=== PATIENT | female | born 1940 | race Caucasian/White ===

== ENCOUNTER 2018-05-07 14:47 | Observation (INO) | payer MEDICARE, OTHER ==
[2018-05-07] MEDS ORDERED: Zofran 4 MG/2 ML VIAL IV ONE (15:19)
[2018-05-07] MEDS ORDERED: Zofran 4 MG/2 ML VIAL ONE (15:25)
[2018-05-07] MEDS ORDERED: Sodium Chloride 0.9% 1000 ML 1,000 ML ONE ×2 (15:25→18:45)
[2018-05-07] MEDS ORDERED: Sodium Chloride 0.9% 1000 ML 1,000 ML IV SCH ×2 (15:30→19:00)
--- NOTE | 2018-05-07 15:39 | ERPHSYRPT ---
- History of Present Illness Time Seen by Provider: 05/07/18 15:10 Historian: patient Exam Limitations: clinical condition Patient Subjective Stated Complaint: states she is having dry heaves and she hasnt hada BM for two weeks. Triage Nursing Assessment: pt alert and orientedx3, patient able to ambulate , weak but gait is steady, no edema notes, pupils perrla3, lung sounds clear, abdomen soft but tender to palpation, bowel sounds present x4, skin WNL. Physician History: PATIENT COMPLAINS OF GENERALIZED ABDOMINAL PAIN FOR 2 WEEKS, CONSTIPATION. EMESIS X 1 WITH DRY HEAVES. DENIES FLANK PAIN, URINARY SYMPTOMS, FEVER, CHILLS Timing/Duration: week(s) Activities at Onset: none Abdominal Pain Onset Location: generalized abdomen Pain Radiation: no radiation Severity of Pain-Max: moderate Severity of Pain-Current: moderate Modifying Factors: Improves With: vomiting Associated Symptoms: nausea, vomiting Previous symptoms: same symptoms as today Allergies/Adverse Reactions: penicillin G Allergy (Mild, Verified 06/01/16 18:50) Swelling Sulfa (Sulfonamide Antibiotics) [Sulfa(Sulfonamide Antibiotics)] Allergy (Mild, Verified 06/01/16 18:50) Hives Iodinated Contrast- Oral and IV Dye [Iodinated Contrast Media - IV Dye] Allergy (Verified 06/01/16 18:50) Home Medications: Carvedilol 3.125 mg [Coreg 3.125 MG] 3.125 mg PO QHS 09/13/14 [History] Hydrochlorothiazide 12.5 mg PO DAILY 09/13/14 [History] Lisinopril 10 mg [Zestril 10 MG] 10 mg PO DAILY 09/13/14 [History] Amlodipine Besylate 10 mg [Norvasc 10 MG] 10 mg PO QHS 09/16/14 [History] Albuterol Sulfate [Proair Hfa] 8.5 gm DAILY 05/07/18 [History] Ezetimibe 10 mg DAILY 05/07/18 [History] Polyethylene Glycol 3350 [Miralax] 17 gm DAILY 05/07/18 [History] Potassium Chloride [Klor-Con 10] 10 meq DAILY 05/07/18 [History] Psyllium Husk [Daily Fiber] 0.52 gm DAILY 05/07/18 [History] Rosuvastatin Calcium 10 mg DAILY 05/07/18 [History] Hx Tetanus, Diphtheria Vaccination/Date Given: Yes Hx Influenza Vaccination/Date Given: Yes Hx Pneumococcal Vaccination/Date Given: Yes Immunizations Up to Date: Yes - Review of Systems Constitutional: No Fever, No Chills Eyes: No Symptoms Ears, Nose, & Throat: No Symptoms Respiratory: No Cough, No Dyspnea Cardiac: No Chest Pain, No Edema, No Syncope Abdominal/Gastrointestinal: Abdominal Pain, Nausea, Vomiting, No Diarrhea Genitourinary Symptoms: No Symptoms, No Dysuria Musculoskeletal: No Symptoms, No Back Pain, No Neck Pain Skin: No Rash Neurological: No Dizziness, No Focal Weakness, No Sensory Changes Psychological: No Symptoms Endocrine: No Symptoms All Other Systems: Reviewed and Negative - Past Medical History Pertinent Past Medical History: Yes Neurological History: No Pertinent History ENT History: No Pertinent History Cardiac History: High Cholesterol, Hypertension Respiratory History: COPD, Lung Cancer, Pneumonia Endocrine Medical History: No Pertinent History Musculoskeletal History: Arthritis GI Medical History: No Pertinent History History: Renal Disease, Other Psycho-Social History: No Pertinent History Female Reproductive Disorders: No Pertinent History Other Medical History: MULTIPLE SKIN CANCERS - Past Surgical History Past Surgical History: Yes Neuro Surgical History: No Pertinent History Cardiac: Cardiac Catheterization Respiratory: No Pertinent History Gastrointestinal: Other Genitourinary: No Pertinent History Musculoskeletal: No Pertinent History Female Surgical History: Lumpectomy Other Surgical History: TRIPLE A. BRUSH BIOPSY. COLONOSCOPY - Social History Smoking Status: Former smoker Exposure to second hand smoke: No Alcohol Use: None Drug Use: none Patient Lives Alone: Yes Significant Family History: cancer - Female History Hx Now: No - Nursing Vital Signs Nursing Vital Signs: Initial Vital Signs Temperature 97.4 F 05/07/18 14:48 Pulse Rate 100 H 05/07/18 14:48 Respiratory Rate 16 05/07/18 14:48 Blood Pressure 134/46 05/07/18 14:48 O2 Sat by Pulse Oximetry 97 05/07/18 14:48 Pain Scale Pain Intensity 6 - Physical Exam General Appearance: no apparent distress, alert Eye Exam: PERRL/EOMI, eyes nml inspection Ears, Nose, Throat Exam: normal ENT inspection, pharynx normal, moist mucous membranes Neck Exam: normal inspection, non-tender, supple, full range of motion Respiratory Exam: normal breath sounds, lungs clear, No respiratory distress Cardiovascular Exam: regular rate/rhythm, normal heart sounds Gastrointestinal/Abdomen Exam: soft, normal bowel sounds, tenderness, distention , other (PERIUMBILICAL AND LLQ TENDERNESS), No mass Back Exam: normal inspection, normal range of motion, No CVA tenderness, No vertebral tenderness Extremity Exam: normal inspection, normal range of motion, pelvis stable Neurologic Exam: alert, oriented x 3, cooperative, normal mood/affect, nml cerebellar function, sensation nml, No motor deficits Skin Exam: normal color, warm, dry SpO2 Interpretation: normal SpO2: 97 Oxygen Delivery: Room Air - Course EKG Interpreted by Me: RATE (RATE OF 72, PEAKED T-WAVES), Sinus Rhythm - Radiology Exams Chest X-ray Interpretation: Interpreted by me (NO EVIDENCE OF INFILTRATES) - CT Exams Abdomen/Pelvis CT Interpretation: Tele-radiologist Report (MILD STRANDING ADJACENT TO THE SIGMOID COLON WHICH COULD BE DUR TO MILD COLITIS OR DIVERTICULITIS, A SMALL AMOUNT OF FREE FLUID, NO FREE AIR. THERE IS DISTENTION OF THE GALLBLADDER BUT NO GALLBLADDER WALL THICKENING, NO BILIARY DILATATION.) Ordered Tests: Active Orders 24 hr Category Date Time Status Clean Catch Urine Specimen STAT Care 05/07/18 15:19 Active EKG-ER Only STAT Care 05/07/18 15:19 Active IV Insertion STAT Care 05/07/18 15:19 Active ABDOMEN AND PELVIS W/0 CONTRAS [CT] Stat Exams 05/07/18 15:19 Taken CHEST 1 VIEW (PORTABLE) Stat Exams 05/07/18 16:18 Taken AMYLASE Stat Lab 05/07/18 15:20 Completed BLOOD CULTURE Stat Lab 05/07/18 15:20 Received BMP Stat Lab 05/07/18 17:50 Completed CBC W DIFF Stat Lab 05/07/18 15:20 Completed CMP Stat Lab 05/07/18 15:20 Completed LIPASE Stat Lab 05/07/18 15:20 Completed Lactic Acid Stat Lab 05/07/18 15:28 Completed UA W/RFX UR CULTURE Stat Lab 05/07/18 19:56 Ordered Medication Summary Generic Name Dose Route Start Last Admin Trade Name Freq PRN Reason Stop Dose Admin Sodium Chloride 1,000 mls @ 250 mls/hr 05/07/18 15:30 05/07/18 18:52 Sodium Chloride 0.9% 1000 Ml IV 06/06/18 15:29 Infused .Q4H WES Infusion Sodium Chloride 1,000 mls @ 50 mls/hr 05/07/18 19:00 05/07/18 18:55 Sodium Chloride 0.9% 1000 Ml IV 06/06/18 18:59 50 mls/hr .Q20H WES Administration Discontinued Medications Generic Name Dose Route Start Last Admin Trade Name Freq PRN Reason Stop Dose Admin Calcium Chloride 1,000 mg 05/07/18 18:38 05/07/18 19:48 Calcium Chloride 10% 1000 Mg IV 05/07/18 18:39 1,000 mg STAT ONE Administration Levofloxacin/Dextrose 250 mg in 50 mls @ 50 mls/hr 05/07/18 17:28 05/07/18 17 :35 Levaquin 250mg/50ml D5w IV 05/07/18 18:27 100 mls/hr STAT STA 100 mls/hr Administration Levofloxacin/Dextrose Confirm 05/07/18 17:34 Levaquin 250mg/50ml D5w Administered 05/07/18 17:35 Dose 250 mg in 50 mls @ ud IV .STK-MED ONE Ondansetron HCl 4 mg 05/07/18 15:19 05/07/18 15:30 Zofran 4 Mg/2 Ml Vial IV 05/07/18 15:20 4 mg STAT ONE Administration Ondansetron HCl Confirm 05/07/18 15:25 Zofran 4 Mg/2 Ml Vial Administered 05/07/18 15:26 Dose 4 mg .ROUTE .STK-MED ONE Sodium Polystyrene Sulfonate 30 g 05/07/18 18:38 05/07/18 19:05 Kayexylate 15 Gm/60 Ml PO 05/07/18 18:39 30 g STAT ONE Administration Lab/Rad Data: Laboratory Result Diagrams 05/07/18 15:20 05/07/18 17:50 Laboratory Results 05/07/18 05/07/18 05/07/18 Range/Units 17:50 15:28 15:20 WBC (4.0-10.5) K/mm3 RBC (4.1-5.4) M/mm3 Hgb (12.0-16.0) gm/dl Hct (35-47) % MCV (78-100) fl MCH (26-32) pg MCHC (32-36) g/dl RDW (11.5-14.0) % Plt Count (150-450) K/mm3 MPV (6-9.5) fl Gran % (36.0-66.0) % Eos # (Auto) (0-0.5) Absolute Lymphs (auto) (1.0-4.6) Absolute Monos (auto) (0.0-1.3) Lymphocytes % (24.0-44.0) % Monocytes % (0.0-12.0) % Eosinophils % (0.00-5.0) % Basophils % (0.0-0.4) % Absolute Granulocytes (1.4-6.9) Basophils # (0-0.4) Sodium 137 138 (137-145) mmol/L Potassium 6.4 H* 6.2 H* (3.5-5.1) mmol/L Chloride 104 100 (98-107) mmol/L Carbon Dioxide 22 21 L (22-30) mmol/L Anion Gap 16.8 H 22.9 H (5-15) MEQ/L BUN 36 H 36 H (7-17) mg/dL Creatinine 1.60 H 1.73 H (0.52-1.04) mg/dL Estimated GFR 33.4 30.5 ML/MIN Glucose 91 112 H (74-106) mg/dL Lactic Acid 1.7 (0.4-2.0) Calcium 9.0 10.6 H (8.4-10.2) mg/dL Total Bilirubin 0.60 (0.2-1.3) mg/dL AST 24 (14-36) U/L ALT 13 (0-35) U/L Alkaline Phosphatase 157 H (38-126) U/L Serum Total Protein 8.5 H (6.3-8.2) g/dL Albumin 4.8 (3.5-5.0) g/dL Amylase 92 (30-110) U/L Lipase 201 (23-300) U/L 05/07/18 Range/Units 15:20 WBC 13.2 H (4.0-10.5) K/mm3 RBC 4.79 (4.1-5.4) M/mm3 Hgb 14.5 (12.0-16.0) gm/dl Hct 42.3 (35-47) % MCV 88.3 (78-100) fl MCH 30.3 (26-32) pg MCHC 34.3 (32-36) g/dl RDW 14.7 H (11.5-14.0) % Plt Count 284 (150-450) K/mm3 MPV 11.8 H (6-9.5) fl Gran % 79.9 H (36.0-66.0) % Eos # (Auto) 0.03 (0-0.5) Absolute Lymphs (auto) 1.58 (1.0-4.6) Absolute Monos (auto) 1.05 (0.0-1.3) Lymphocytes % 11.9 L (24.0-44.0) % Monocytes % 7.9 (0.0-12.0) % Eosinophils % 0.2 (0.00-5.0) % Basophils % 0.1 (0.0-0.4) % Absolute Granulocytes 10.57 H (1.4-6.9) Basophils # 0.01 (0-0.4) Sodium (137-145) mmol/L Potassium (3.5-5.1) mmol/L Chloride (98-107) mmol/L Carbon Dioxide (22-30) mmol/L Anion Gap (5-15) MEQ/L BUN (7-17) mg/dL Creatinine (0.52-1.04) mg/dL Estimated GFR ML/MIN Glucose (74-106) mg/dL Lactic Acid (0.4-2.0) Calcium (8.4-10.2) mg/dL Total Bilirubin (0.2-1.3) mg/dL AST (14-36) U/L ALT (0-35) U/L Alkaline Phosphatase (38-126) U/L Serum Total Protein (6.3-8.2) g/dL Albumin (3.5-5.0) g/dL Amylase (30-110) U/L Lipase (23-300) U/L - Progress Progress Note: 05/07/18 15:42 IV NORMAL SALINE 250ML/HR ZOFRAN 4MG IV, SERUM K-6.2, GIVEN BOLUS NORMAL SALINE1 LITER OVER 1 HOUR, 2 SETS OF BLOOD CULTURES, LEVAQUIN 250MG IVPB, SODIUM POLYSTYRENE 30GM ORALLY, CALCIUM CHLORIDE 1000MG IVPB OVER 1 HOUR 05/07/18 17:48 05/07/18 17:49 05/07/18 20:04 - Departure Time of Disposition: 20:06 Departure Disposition: Observation Clinical Impression: ACUTE SIGMOID COLITIS, HYPERKALEMIA, INTRACTABLE EMESIS Condition: Stable Critical Care Time: No Referrals: ALAINA RODRIGUEZ [Primary Care Provider] -
[2018-05-07 15:47] LABS: BASOPHIL % 0.1 % (0.0-0.4); Basophil (Absolute #) 0.01 (0-0.4); Eosinophil % 0.2 % (0.00-5.0); Eosinophil (Absolute #) 0.03 (0-0.5); Granulocyte Absolute (ANC) 10.57 (1.4-6.9); Granulocytes % 79.9 % (36.0-66.0); Hematocrit 42.3 % (35-47); Hemoglobin 14.5 gm/dl (12.0-16.0); Lymphocyte (Absolute #) 1.58 (1.0-4.6); Lymphocytes % 11.9 % (24.0-44.0); Mean Cell Volume 88.3 fl (78-100); Mean Corpuscular Hemoglobin 30.3 pg (26-32); Mean Corpuscular Hgb Concent. 34.3 g/dl (32-36); Mean Platelet Volume 11.8 fl (6-9.5); Monocyte (Absolute #) 1.05 (0.0-1.3); Monocytes % 7.9 % (0.0-12.0); Platelet Count 284 K/mm3 (150-450); Red Blood Count 4.79 M/mm3 (4.1-5.4); Red Cell Distribution Width 14.7 % (11.5-14.0); White Blood Count 13.2 K/mm3 (4.0-10.5)
[2018-05-07 15:52] LABS: ALBUMIN 4.8 g/dL (3.5-5.0); ANION GAP 22.9 MEQ/L (5-15); BILIRUBIN,TOTAL 0.6 mg/dL (0.2-1.3); Calcium 10.6 mg/dL (8.4-10.2); Creatinine 1 1.73 mg/dL (0.52-1.04); Total Protein 8.5 g/dL (6.3-8.2)
[2018-05-07 15:56] LABS: Potassium 6.2 mmol/L (3.5-5.1)
[2018-05-07] MEDS ORDERED: Levaquin 250MG/50ML D5W 250 MG/50 ML BAG IV STA (17:28)
[2018-05-07] MEDS ORDERED: Levaquin 250MG/50ML D5W 250 MG/50 ML BAG IV ONE (17:34)
[2018-05-07 18:18] LABS: ANION GAP 16.8 MEQ/L (5-15); Creatinine 1 1.6 mg/dL (0.52-1.04)
[2018-05-07 18:27] LABS: Potassium 6.4 mmol/L (3.5-5.1)
[2018-05-07] MEDS ORDERED: CALCIUM CHLORIDE 10% 1000 MG IV ONE ×2 (18:38→20:38)
[2018-05-07] MEDS ORDERED: Kayexylate 15 GM/60 ML PO ONE (18:38)
[2018-05-07] MEDS ORDERED: Sodium Chloride 0.9% 100 ML IVPB 100 ML IV ONE (20:38)
[2018-05-07 20:49] LABS: Appearance SLIGHTLY CLOUDY (CLEAR)
[2018-05-07 20:50] LABS: Leukocyte Esterase 2+ (NEGATIVE); Nitrite NEGATIVE (NEGATIVE); Protein,Urine Dip TRACE (Negative)
[2018-05-07 20:51] LABS: Bilirubin NEGATIVE (NEGATIVE); Blood NEGATIVE Ery/ul (0-5); Glucose NEGATIVE (NEGATIVE); Ketones MODERATE (NEGATIVE); Urobilinogen 1 mg/dL (0-1)
[2018-05-07 21:01] LABS: Bacteria FEW /HPF (NEGATIVE); Epithelial Cells FEW /HPF (FEW)
[2018-05-07] MEDS ORDERED: Kayexylate 15 GM/60 ML PO SCH (21:05)
[2018-05-07] MEDS ORDERED: Sodium Chloride 0.9% 500 ML 500 ML IV SCH (21:05)
[2018-05-07] MEDS ORDERED: Zofran 4 MG/2 ML VIAL IV PRN (21:05)
--- NOTE | 2018-05-07 21:44 | XRAY ---
Indication: Abdominal pain. Constipation 2 weeks. Multiple contiguous axial images obtained through the abdomen and pelvis without contrast as ordered. Comparison: April 22, 2016. Lung bases demonstrate stable lingular calcified granuloma. No infiltrate or effusion. Heart is not enlarged. Noncontrasted stomach and bowel loops appear nonobstructed. Normal appendix. Colon demonstrates diffuse moderate fluid distention. Again mild scattered colonic diverticulosis with now sigmoid stranding and free fluid favoring diverticulitis. No walled off fluid collection or free air. Gallbladder is abnormally distended without gallstones or biliary distention. Right kidney remains small compared to contralateral kidney with stable nonobstructing punctate calculus. Stable scattered calcified splenic granulomas. Remaining liver, pancreas, spleen, adrenal glands, kidneys, ureters, and bladder appear unremarkable for noncontrast exam. 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 Lack of contrast precludes intraluminal evaluation. Osseous structures intact again with mild degenerative changes throughout the spine and L1 Schmorl node. Impression: 1. Again colonic diverticulosis with now sigmoid diverticulitis. Small free fluid presumed reactive. 2. Diffuse fluid distended colon possible colitis. 3. Distended gallbladder without gallstones. Gallbladder sonogram may yield further information if clinically warranted. 4. Stable small right kidney with nonobstructing microcalculus, arteriosclerotic disease, and evidence for granulomatous disease. Comment: Preliminary interpretation was made by [facility]. No discrepancy. CTDI 11.39
--- NOTE | 2018-05-07 21:46 | XRAY ---
Indication: Cough. History right lung cancer. Comparison: June 01, 2016. Portable chest unchanged again with right suprahilar post-therapeutic changes and lingular calcified granuloma. Remaining heart and lungs unremarkable. Bony thorax intact again with minimal degenerative changes. Impression: Stable nonacute chest with chronic features.
[2018-05-07] MEDS: Calcium Gluconate 10% 1000 MG IV ONE ×2 (23:01→23:04)
[2018-05-07 23:53] LABS: ANION GAP 19.9 MEQ/L (5-15); Calcium 10.9 mg/dL (8.4-10.2); Creatinine 1 1.63 mg/dL (0.52-1.04); Potassium 5.7 mmol/L (3.5-5.1)
[2018-05-08] MEDS: FLAGYL 500 MG IVPB 500 MG/100 ML BAG IV SCH ×5 (00:34→23:49)
[2018-05-08 06:03] LABS: ANION GAP 14.9 MEQ/L (5-15); Calcium 9.5 mg/dL (8.4-10.2); Creatinine 1 1.56 mg/dL (0.52-1.04); Potassium 4.7 mmol/L (3.5-5.1)
--- NOTE | 2018-05-08 08:03 | PCM.HP ---
History of Present Illness - Chief Complaint Chief Complaint: ACUTE SIGMOID COLITIS Date: 05/08/18 History of Present Illness: is a 77 year old female. who presented with 2 weeks of abdominal pain and constipation which began worsening. She tried miralax but only 1 dose and her neprhologist recommended fiber cap but she didn't get a chance to take it. She became weak and with severe pain nausea and developed vomiting and presented to ED. - Review of Systems Constitutional: Chills, Fatigue, No Fever Eyes: No Symptoms Ears, Nose, & Throat: No Symptoms Respiratory: No Cough, No Short Of Breath Cardiac: No Chest Pain, No Edema, No Syncope Abdominal/Gastrointestinal: Abdominal Pain, Nausea, Vomiting, Constipation, No Diarrhea Genitourinary Symptoms: No Dysuria Musculoskeletal: No Back Pain, No Neck Pain Skin: No Rash Neurological: No Dizziness, No Focal Weakness, No Sensory Changes Psychological: No Symptoms Endocrine: No Symptoms Hematologic/Lymphatic: No Symptoms Immunological/Allergic: No Symptoms Medications & Allergies Home Medications: Home Medication List Carvedilol 3.125 mg [Coreg 3.125 MG] 3.125 mg PO BID 09/13/14 [History Confirmed 05/07/18] Hydrochlorothiazide 12.5 mg PO DAILY 09/13/14 [History Confirmed 05/07/18] Albuterol Sulfate [Proair Hfa] 2 puffs QID PRN 05/07/18 [History Confirmed 05/07] Ezetimibe 10 mg PO DAILY 05/07/18 [History Confirmed 05/07/18] Polyethylene Glycol 3350 [Miralax] 17 gm DAILY 05/07/18 [History Confirmed 05/07] Potassium Chloride [Klor-Con 10] 10 meq DAILY 05/07/18 [History Confirmed ] Psyllium Husk [Daily Fiber] 0.52 gm DAILY 05/07/18 [History Confirmed 05/07/18] Rosuvastatin Calcium 10 mg DAILY 05/07/18 [History Confirmed 05/07/18] Levofloxacin [Levaquin] 500 mg PO DAILY #7 tablet 05/09/18 [Rx] Metronidazole 500 mg [Flagyl 500 MG] 500 mg PO TID #21 tablet 05/09/18 [Rx ] Allergies/Adverse Reactions: Allergies Allergy/AdvReac Type Severity Reaction Status Date / Time Iodinated Contrast- Oral and Allergy Intermediate Verified 05/07/18 21:57 IV Dye [Iodinated Contrast Media - IV Dye] penicillin G Allergy Mild Swelling Verified 06/01/16 18:50 Sulfa (Sulfonamide Allergy Mild Hives Verified 06/01/16 18:50 Antibiotics) [Sulfa(Sulfonamide Antibiotics)] - Past Medical History Past Medical History: Yes Neurological History: No Pertinent History ENT History: No Pertinent History Cardiac History: High Cholesterol, Hypertension Respiratory History: COPD, Lung Cancer, Pneumonia Endocrine Medical History: No Pertinent History Musculoskelatal History: Arthritis GI Medical History: No Pertinent History History: Renal Disease, Other Pyscho-Social History: No Pertinent History Reproductive Disorders: No Pertinent History Comment: MULTIPLE SKIN CANCERS, 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 smaller than the other - Female History Are you now?: No - Past Surgical History Past Surgical History: Yes Neuro Surgical History: No Pertinent History Cardiac History: Cardiac Catheterization Respiratory Surgery: No Pertinent History GI Surgical History: Other Genitourinary Surgical Hx: No Pertinent History Musculskeletal Surgical Hx: No Pertinent History Female Surgical History: Lumpectomy Other Surgical History: TRIPLE A REPAIR. BRUSH BIOPSY. COLONOSCOPY. MULTIPLE SKIN CANCERS REMOVED. STENTS IN BILAT LEGS - Social History Smoking Status: Former smoker Exposure to second hand smoke: No Alcohol: None Drug Use: none Significant Family History: cancer - Physical Exam Vital Signs: Vital Signs - 24 hr Temp Pulse Resp BP Pulse Ox 05/08/18 03:57 98.2 F 93 H 19 128/55 95 05/08/18 03:48 96 H 05/08/18 00:01 85 05/08/18 00:00 97.4 F 95 H 19 127/52 94 L 05/07/18 21:47 98 05/07/18 21:19 97.8 F 97 H 20 123/61 100 05/07/18 21:05 97 H 98 05/07/18 20:06 97 05/07/18 19:50 99 H 18 123/47 95 05/07/18 19:40 95 H 18 122/53 98 05/07/18 18:50 84 16 118/46 98 05/07/18 18:21 88 16 118/46 99 05/07/18 15:50 78 16 123/44 96 05/07/18 15:38 75 18 98/50 97 05/07/18 14:48 97.4 F 100 H 16 134/46 97 General Appearance: no apparent distress, alert Neurologic Exam: alert, oriented x 3, cooperative, normal mood/affect, nml cerebellar function, nml station & gait, sensation nml, No motor deficits Eye Exam: PERRL/EOMI, eyes nml inspection Ears, Nose, Throat Exam: normal ENT inspection, TMs normal, pharynx normal, moist mucous membranes Neck Exam: normal inspection, non-tender, supple, full range of motion Respiratory Exam: normal breath sounds, lungs clear, No respiratory distress Cardiovascular Exam: regular rate/rhythm, normal heart sounds, normal peripheral pulses Gastrointestinal/Abdomen Exam: soft, normal bowel sounds, tenderness (left lower quadrant), No distention, No mass, No guarding, No ecchymosis, No rebound Back Exam: normal inspection, normal range of motion, No CVA tenderness, No vertebral tenderness Extremity Exam: normal inspection, normal range of motion, pelvis stable Skin Exam: normal color, warm, dry, No rash Lymphatic Exam: No adenopathy Results - Labs Lab/Micro Results: Lab Results-Last 24 Hours 05/07/18 05/07/18 05/07/18 Range/Units 15:20 15:20 15:28 WBC 13.2 H (4.0-10.5) K/mm3 RBC 4.79 (4.1-5.4) M/mm3 Hgb 14.5 (12.0-16.0) gm/dl Hct 42.3 (35-47) % MCV 88.3 (78-100) fl MCH 30.3 (26-32) pg MCHC 34.3 (32-36) g/dl RDW 14.7 H (11.5-14.0) % Plt Count 284 (150-450) K/mm3 MPV 11.8 H (6-9.5) fl Gran % 79.9 H (36.0-66.0) % Eos # (Auto) 0.03 (0-0.5) Absolute Lymphs (auto) 1.58 (1.0-4.6) Absolute Monos (auto) 1.05 (0.0-1.3) Lymphocytes % 11.9 L (24.0-44.0) % Monocytes % 7.9 (0.0-12.0) % Eosinophils % 0.2 (0.00-5.0) % Basophils % 0.1 (0.0-0.4) % Absolute Granulocytes 10.57 H (1.4-6.9) Basophils # 0.01 (0-0.4) Sodium 138 (137-145) mmol/L Potassium 6.2 H* (3.5-5.1) mmol/L Chloride 100 (98-107) mmol/L Carbon Dioxide 21 L (22-30) mmol/L Anion Gap 22.9 H (5-15) MEQ/L BUN 36 H (7-17) mg/dL Creatinine 1.73 H (0.52-1.04) mg/dL Estimated GFR 30.5 ML/MIN Glucose 112 H (74-106) mg/dL Lactic Acid 1.7 (0.4-2.0) Calcium 10.6 H (8.4-10.2) mg/dL Total Bilirubin 0.60 (0.2-1.3) mg/dL AST 24 (14-36) U/L ALT 13 (0-35) U/L Alkaline Phosphatase 157 H (38-126) U/L Troponin I (0.000-0.034) ng/mL Serum Total Protein 8.5 H (6.3-8.2) g/dL Albumin 4.8 (3.5-5.0) g/dL Amylase 92 (30-110) U/L Lipase 201 (23-300) U/L Ur Collection Type Urine Color (YELLOW) Urine Appearance (CLEAR) Urine pH (5-6) Ur Specific [place] (1.005-1.025) Urine Protein (Negative) Urine Ketones (NEGATIVE) Urine Blood (0-5) Yahir/ul Urine Nitrite (NEGATIVE) Urine Bilirubin (NEGATIVE) Urine Urobilinogen (0-1) mg/dL Ur Leukocyte Esterase (NEGATIVE) Urine Microscopic WBC (0-5) /HPF Ur Epithelial Cells (FEW) /HPF Urine Bacteria (NEGATIVE) /HPF Hyaline Casts (0-2) /LPF Urine Culture Reflexed (NO) Urine Glucose (NEGATIVE) mg/dL Specimen Received 05/07/18 05/07/18 05/07/18 Range/Units 17:50 20:30 23:30 WBC (4.0-10.5) K/mm3 RBC (4.1-5.4) M/mm3 Hgb (12.0-16.0) gm/dl Hct (35-47) % MCV (78-100) fl MCH (26-32) pg MCHC (32-36) g/dl RDW (11.5-14.0) % Plt Count (150-450) K/mm3 MPV (6-9.5) fl Gran % (36.0-66.0) % Eos # (Auto) (0-0.5) Absolute Lymphs (auto) (1.0-4.6) Absolute Monos (auto) (0.0-1.3) Lymphocytes % (24.0-44.0) % Monocytes % (0.0-12.0) % Eosinophils % (0.00-5.0) % Basophils % (0.0-0.4) % Absolute Granulocytes (1.4-6.9) Basophils # (0-0.4) Sodium 137 (137-145) mmol/L Potassium 6.4 H* (3.5-5.1) mmol/L Chloride 104 (98-107) mmol/L Carbon Dioxide 22 (22-30) mmol/L Anion Gap 16.8 H (5-15) MEQ/L BUN 36 H (7-17) mg/dL Creatinine 1.60 H (0.52-1.04) mg/dL Estimated GFR 33.4 ML/MIN Glucose 91 (74-106) mg/dL Lactic Acid (0.4-2.0) Calcium 9.0 (8.4-10.2) mg/dL Total Bilirubin (0.2-1.3) mg/dL AST (14-36) U/L ALT (0-35) U/L Alkaline Phosphatase (38-126) U/L Troponin I < 0.012 (0.000-0.034) ng/mL Serum Total Protein (6.3-8.2) g/dL Albumin (3.5-5.0) g/dL Amylase (30-110) U/L Lipase (23-300) U/L Ur Collection Type CLEAN CATCH Urine Color DARK YELLOW (YELLOW) Urine Appearance SLIGHTLY CLOUDY (CLEAR) Urine pH 5.0 (5-6) Ur Specific [place] 1.020 (1.005-1.025) Urine Protein TRACE (Negative) Urine Ketones MODERATE (NEGATIVE) Urine Blood NEGATIVE (0-5) Yahir/ul Urine Nitrite NEGATIVE (NEGATIVE) Urine Bilirubin NEGATIVE (NEGATIVE) Urine Urobilinogen 1 (0-1) mg/dL Ur Leukocyte Esterase 2+ (NEGATIVE) Urine Microscopic WBC 10-15 (0-5) /HPF Ur Epithelial Cells FEW (FEW) /HPF Urine Bacteria FEW (NEGATIVE) /HPF Hyaline Casts 5-10 (0-2) /LPF Urine Culture Reflexed YES (NO) Urine Glucose NEGATIVE (NEGATIVE) mg/dL Specimen Received 05/07/18 2030 05/07/18 05/08/18 05/08/18 Range/Units 23:30 01:30 03:25 WBC (4.0-10.5) K/mm3 RBC (4.1-5.4) M/mm3 Hgb (12.0-16.0) gm/dl Hct (35-47) % MCV (78-100) fl MCH (26-32) pg MCHC (32-36) g/dl RDW (11.5-14.0) % Plt Count (150-450) K/mm3 MPV (6-9.5) fl Gran % (36.0-66.0) % Eos # (Auto) (0-0.5) Absolute Lymphs (auto) (1.0-4.6) Absolute Monos (auto) (0.0-1.3) Lymphocytes % (24.0-44.0) % Monocytes % (0.0-12.0) % Eosinophils % (0.00-5.0) % Basophils % (0.0-0.4) % Absolute Granulocytes (1.4-6.9) Basophils # (0-0.4) Sodium 140 (137-145) mmol/L Potassium 5.7 H (3.5-5.1) mmol/L Chloride 106 (98-107) mmol/L Carbon Dioxide 21 L (22-30) mmol/L Anion Gap 19.9 H (5-15) MEQ/L BUN 38 H (7-17) mg/dL Creatinine 1.63 H (0.52-1.04) mg/dL Estimated GFR 32.7 ML/MIN Glucose 95 (74-106) mg/dL Lactic Acid (0.4-2.0) Calcium 10.9 H (8.4-10.2) mg/dL Total Bilirubin (0.2-1.3) mg/dL AST (14-36) U/L ALT (0-35) U/L Alkaline Phosphatase (38-126) U/L Troponin I < 0.012 < 0.012 (0.000-0.034) ng/mL Serum Total Protein (6.3-8.2) g/dL Albumin (3.5-5.0) g/dL Amylase (30-110) U/L Lipase (23-300) U/L Ur Collection Type Urine Color (YELLOW) Urine Appearance (CLEAR) Urine pH (5-6) Ur Specific [place] (1.005-1.025) Urine Protein (Negative) Urine Ketones (NEGATIVE) Urine Blood (0-5) Yahir/ul Urine Nitrite (NEGATIVE) Urine Bilirubin (NEGATIVE) Urine Urobilinogen (0-1) mg/dL Ur Leukocyte Esterase (NEGATIVE) Urine Microscopic WBC (0-5) /HPF Ur Epithelial Cells (FEW) /HPF Urine Bacteria (NEGATIVE) /HPF Hyaline Casts (0-2) /LPF Urine Culture Reflexed (NO) Urine Glucose (NEGATIVE) mg/dL Specimen Received 05/08/18 05/08/18 Range/Units 05:30 05:30 WBC (4.0-10.5) K/mm3 RBC (4.1-5.4) M/mm3 Hgb (12.0-16.0) gm/dl Hct (35-47) % MCV (78-100) fl MCH (26-32) pg MCHC (32-36) g/dl RDW (11.5-14.0) % Plt Count (150-450) K/mm3 MPV (6-9.5) fl Gran % (36.0-66.0) % Eos # (Auto) (0-0.5) Absolute Lymphs (auto) (1.0-4.6) Absolute Monos (auto) (0.0-1.3) Lymphocytes % (24.0-44.0) % Monocytes % (0.0-12.0) % Eosinophils % (0.00-5.0) % Basophils % (0.0-0.4) % Absolute Granulocytes (1.4-6.9) Basophils # (0-0.4) Sodium 139 (137-145) mmol/L Potassium 4.7 (3.5-5.1) mmol/L Chloride 108 H (98-107) mmol/L Carbon Dioxide 21 L (22-30) mmol/L Anion Gap 14.9 (5-15) MEQ/L BUN 37 H (7-17) mg/dL Creatinine 1.56 H (0.52-1.04) mg/dL Estimated GFR 34.4 ML/MIN Glucose 80 (74-106) mg/dL Lactic Acid (0.4-2.0) Calcium 9.5 (8.4-10.2) mg/dL Total Bilirubin (0.2-1.3) mg/dL AST (14-36) U/L ALT (0-35) U/L Alkaline Phosphatase (38-126) U/L Troponin I < 0.012 (0.000-0.034) ng/mL Serum Total Protein (6.3-8.2) g/dL Albumin (3.5-5.0) g/dL Amylase (30-110) U/L Lipase (23-300) U/L Ur Collection Type Urine Color (YELLOW) Urine Appearance (CLEAR) Urine pH (5-6) Ur Specific [place] (1.005-1.025) Urine Protein (Negative) Urine Ketones (NEGATIVE) Urine Blood (0-5) Yahir/ul Urine Nitrite (NEGATIVE) Urine Bilirubin (NEGATIVE) Urine Urobilinogen (0-1) mg/dL Ur Leukocyte Esterase (NEGATIVE) Urine Microscopic WBC (0-5) /HPF Ur Epithelial Cells (FEW) /HPF Urine Bacteria (NEGATIVE) /HPF Hyaline Casts (0-2) /LPF Urine Culture Reflexed (NO) Urine Glucose (NEGATIVE) mg/dL Specimen Received Microbiology 05/07/18 20:30 Urine Culture - Preliminary Clean Catch Midstream NO GROWTH TO DATE - Radiology Impressions Radiology Exams & Impressions: Radiology Procedures Category Date Time Status ABDOMEN AND PELVIS W/0 CONTRAS [CT] Stat Exams 05/07/18 15:19 Completed CHEST 1 VIEW (PORTABLE) Stat Exams 05/07/18 16:18 Completed - Other Procedures and Tests Respiratory Therapy 05/07/18 21:05 Oxygen NASAL CANNULA 2 lpm Assessment/Plan (1) Diverticulitis large intestine Status: Acute Qualifiers: Diverticulitis complication: without perforation or abscess Assessment & Plan: pain improving and bm had 5 overnight with the kayexalate for the hyperkalemia and it is improved this am renal function improving with the hydration bp still low hold her amlodipine with the constipation and florencia inhibitor with the hyperkalemia and renal failure continue levaquin and flagyl transfer to med [facility] tele today she had colonoscopy she states about 4 years ago ordered through Dr. Stacy's office Code(s): K57.32 - DVTRCLI OF LG INT W/O PERFORATION OR ABSCESS W/O BLEEDING (2) Hyperkalemia Status: Acute Onset Date: ~05/08/18 Code(s): E87.5 - HYPERKALEMIA (3) [id number] kidney injury Status: Acute Code(s): N17.9 - ACUTE KIDNEY FAILURE, UNSPECIFIED; N18.9 - CHRONIC KIDNEY DISEASE, UNSPECIFIED (4) Essential hypertension Status: Chronic Code(s): I10 - ESSENTIAL (PRIMARY) HYPERTENSION (5) COPD (chronic obstructive pulmonary disease) Status: Chronic (6) Constipation Status: Acute Code(s): K59.00 - CONSTIPATION, UNSPECIFIED
[2018-05-08] MEDS ORDERED: PROVENTIL COMMON CANISTER IH PRN (08:30)
[2018-05-08] MEDS: hydroDIURIL 25 MG PO SCH (09:08)
[2018-05-08] MEDS: Coreg 3.125 MG PO SCH ×2 (09:09→21:22)
[2018-05-08] MEDS: ENOXAPARIN SODIUM SQ SCH ×2 (09:10→09:25)
[2018-05-08] MEDS: ZOCOR 20MG PO SCH (09:10)
[2018-05-08] MEDS: Miralax Powder 17GM PACKET PO SCH ×2 (09:12→12:03)
[2018-05-08] MEDS: Zetia 10 MG PO SCH (09:14)
[2018-05-08] MEDS: Sodium Chloride 0.9% 1000 ML 1,000 ML IV SCH (09:40)
[2018-05-08] MEDS ORDERED: NORVASC 5 MG PO SCH (10:00)
[2018-05-08] MEDS ORDERED: NON-FORMULARY ITEM (Hydrochlorothiazide [Hydrochlorothiazide] 12.5 MG) PO SCH (10:00)
[2018-05-08] MEDS ORDERED: COREG 12.5 MG PO SCH (10:00)
[2018-05-08] MEDS ORDERED: Levaquin 250MG/50ML D5W 250 MG/50 ML BAG IV SCH (10:00)
[2018-05-08] MEDS ORDERED: PREPARATION H Ointment RC PRN (21:04)
[2018-05-09] MEDS: FLAGYL 500 MG IVPB 500 MG/100 ML BAG IV SCH (05:44)
[2018-05-09] MEDS: Sodium Chloride 0.9% 1000 ML 1,000 ML IV SCH (05:45)
[2018-05-09 06:20] LABS: BASOPHIL % 0.3 % (0.0-0.4); Basophil (Absolute #) 0.02 (0-0.4); Eosinophil (Absolute #) 0.16 (0-0.5); Granulocytes % 60.8 % (36.0-66.0); Hematocrit 30.2 % (35-47); Hemoglobin 9.8 gm/dl (12.0-16.0); Lymphocyte (Absolute #) 1.82 (1.0-4.6); Mean Corpuscular Hemoglobin 29.5 pg (26-32); Mean Corpuscular Hgb Concent. 32.5 g/dl (32-36); Mean Platelet Volume 11.4 fl (6-9.5); Monocytes % 13.9 % (0.0-12.0); Platelet Count 186 K/mm3 (150-450); Red Blood Count 3.32 M/mm3 (4.1-5.4); Red Cell Distribution Width 14.8 % (11.5-14.0); White Blood Count 7.9 K/mm3 (4.0-10.5)
[2018-05-09 06:32] LABS: ANION GAP 11.6 MEQ/L (5-15); Calcium 8.8 mg/dL (8.4-10.2); Creatinine 1 1.18 mg/dL (0.52-1.04); Potassium 4.1 mmol/L (3.5-5.1)
--- NOTE | 2018-05-09 07:04 | PCM.DS ---
Discharge Summary Date of Admission: 05/07/18 20:37 Date of Discharge: 05/09/18 Admitting Physician: JEFERSON VALENTIN Primary Care Provider: PAULA SWARTZ Allergies Allergies Iodinated Contrast- Oral and IV Dye [Iodinated Contrast Media - IV Dye] Allergy (Intermediate, Verified 05/07/18 21:57) penicillin G Allergy (Mild, Verified 06/01/16 18:50) Swelling Sulfa (Sulfonamide Antibiotics) [Sulfa(Sulfonamide Antibiotics)] Allergy (Mild, Verified 06/01/16 18:50) [facility] Summary - Hospital Course Hospital Course: She presented with constipation abdominal pain weakness chills and vomiting. Found to have sigmoid diverticulitis and hyperkalemia with acute on chronic renal injury. Bp was low did not require pressors. She responded well to iv fluid replacement. She had improvement in renal function. She received 1 dose of kayexalate with good bm's after this that were loose and correction of hyperkalemia. She had her lisinopril and amlodipine held since admission and bp remained in the low normal range and she will remain off these at discharge with f/u next week. She has patient reported colonoscopy as normal 4 years ago but we do not have a copy of these results. - Vitals & Intake/Output Vital Signs: Vital Signs Temperature 99.1 F 05/09/18 04:00 Pulse Rate 81 05/09/18 04:00 Respiratory Rate 16 05/09/18 04:00 Blood Pressure 104/51 05/09/18 04:00 O2 Sat by Pulse Oximetry 81 L 05/09/18 04:00 Intake & Output: Intake & Output 05/06/18 05/07/18 05/08/18 05/09/18 11:59 11:59 11:59 11:59 Intake Total 1728 1251 Output Total 400 1200 Balance 1328 51 Weight 60.2 kg 64.1 kg - Lab Result Diagrams: 05/09/18 05:33 05/09/18 05:33 Lab Results-Last 24 Hrs: Lab Results-Last 24 Hours 05/09/18 05/09/18 Range/Units 05:33 05:33 WBC 7.9 (4.0-10.5) K/mm3 RBC 3.32 L (4.1-5.4) M/mm3 Hgb 9.8 L (12.0-16.0) gm/dl Hct 30.2 L (35-47) % MCV 91.0 (78-100) fl MCH 29.5 (26-32) pg MCHC 32.5 (32-36) g/dl RDW 14.8 H (11.5-14.0) % Plt Count 186 (150-450) K/mm3 MPV 11.4 H (6-9.5) fl Gran % 60.8 (36.0-66.0) % Eos # (Auto) 0.16 (0-0.5) Absolute Lymphs (auto) 1.82 (1.0-4.6) Absolute Monos (auto) 1.10 (0.0-1.3) Lymphocytes % 23.0 L (24.0-44.0) % Monocytes % 13.9 H (0.0-12.0) % Eosinophils % 2.0 (0.00-5.0) % Basophils % 0.3 (0.0-0.4) % Absolute Granulocytes 4.80 (1.4-6.9) Basophils # 0.02 (0-0.4) Sodium 140 (137-145) mmol/L Potassium 4.1 (3.5-5.1) mmol/L Chloride 109 H (98-107) mmol/L Carbon Dioxide 23 (22-30) mmol/L Anion Gap 11.6 (5-15) MEQ/L BUN 33 H (7-17) mg/dL Creatinine 1.18 H (0.52-1.04) mg/dL Estimated GFR 47.5 ML/MIN Glucose 92 (74-106) mg/dL Calcium 8.8 (8.4-10.2) mg/dL Micro Results-Entire Visit: Microbiology 05/07/18 20:30 Urine Culture - Final Clean Catch Midstream NO GROWTH 05/07/18 15:33 Blood Culture - Preliminary Blood NO GROWTH TO DATE 05/07/18 15:20 Blood Culture - Preliminary Blood NO GROWTH TO DATE - Radiology Exams Ordered Rad Exams-Entire Visit: Radiology Procedures Category Date Time Status ABDOMEN AND PELVIS W/0 CONTRAS [CT] Stat Exams 05/07/18 15:19 Completed CHEST 1 VIEW (PORTABLE) Stat Exams 05/07/18 16:18 Completed - Procedures and Test Procedures and Tests throughout Hospitalization: Therapy Orders & Screens 05/07/18 21:05 Oxygen NASAL CANNULA 2 lpm Comment: 05/09/18 01:12 Respiratory MDI UD Comment: albuterol prn Diagnosis: ACUTE SIGMOID COLITIS Discharge Exam General Appearance: no apparent distress, alert Neurologic Exam: alert, oriented x 3, cooperative, normal mood/affect, nml cerebellar function, sensation nml, No motor deficits Skin Exam: normal color, warm, dry Eye Exam: PERRL, EOMI, eyes nml inspection Ears, Nose, Throat Exam: normal ENT inspection, pharynx normal, moist mucous membranes Neck Exam: normal inspection, non-tender, supple, full range of motion Respiratory Exam: normal breath sounds, lungs clear, No respiratory distress Cardiovascular Exam: regular rate/rhythm, normal heart sounds Gastrointestinal/Abdomen Exam: soft, No tenderness, No mass Extremity Exam: normal inspection, normal range of motion Back Exam: normal inspection, normal range of motion, No CVA tenderness, No vertebral tenderness Pelvic Exam: deferred Rectal Exam: deferred Final Diagnosis/Problem List - Final Discharge Diagnosis/Problem (1) Diverticulitis large intestine Status: Acute (2) [id number] kidney injury Status: Acute (3) Constipation Status: Resolved (4) Hyperkalemia Status: Resolved Onset Date: ~05/08/18 (5) COPD (chronic obstructive pulmonary disease) Status: Chronic (6) Essential hypertension Status: Chronic - Discharge Disposition: Home, Self-Care Condition: Stable Prescriptions: New Metronidazole 500 mg [Flagyl 500 MG] 500 mg PO TID #21 tablet Levofloxacin [Levaquin] 500 mg PO DAILY #7 tablet Continue Hydrochlorothiazide 12.5 mg PO DAILY Carvedilol 3.125 mg [Coreg 3.125 MG] 3.125 mg PO BID Psyllium Husk [Daily Fiber] 0.52 gm DAILY Rosuvastatin Calcium 10 mg DAILY Albuterol Sulfate [Proair Hfa] 2 puffs QID PRN PRN Reason: Shortness Of Breath Potassium Chloride [Klor-Con 10] 10 meq DAILY Ezetimibe 10 mg PO DAILY Polyethylene Glycol 3350 [Miralax] 17 gm DAILY Discontinued Lisinopril 10 mg [Zestril 10 MG] 10 mg PO DAILY Amlodipine Besylate 10 mg [Norvasc 10 MG] 10 mg PO DAILY Instructions: Hyperkalemia (DC), Inflammatory Bowel Disease (DC) Follow up with: PAULA SWARTZ [Primary Care Provider] - 05/16/18 11:15 am Forms: Discharge Instructions
--- NOTE | 2018-05-09 07:04 | PCM.DCORD ---
- Discharge Discharge Date: 05/09/18 Disposition: Home, Self-Care Condition: Stable Prescriptions: New Metronidazole 500 mg [Flagyl 500 MG] 500 mg PO TID #21 tablet Levofloxacin [Levaquin] 500 mg PO DAILY #7 tablet Continue Lisinopril 10 mg [Zestril 10 MG] 10 mg PO DAILY Hydrochlorothiazide 12.5 mg PO DAILY Carvedilol 3.125 mg [Coreg 3.125 MG] 3.125 mg PO BID Amlodipine Besylate 10 mg [Norvasc 10 MG] 10 mg PO DAILY Psyllium Husk [Daily Fiber] 0.52 gm DAILY Rosuvastatin Calcium 10 mg DAILY Albuterol Sulfate [Proair Hfa] 2 puffs QID PRN PRN Reason: Shortness Of Breath Potassium Chloride [Klor-Con 10] 10 meq DAILY Ezetimibe 10 mg PO DAILY Polyethylene Glycol 3350 [Miralax] 17 gm DAILY Follow up with: PAULA SWARTZ [Primary Care Provider] - 1 Week
--- NOTE | 2018-05-09 07:21 | PCM.DCORD ---
- Discharge Discharge Date: 05/09/18 Disposition: Home, Self-Care Condition: Stable Prescriptions: New Metronidazole 500 mg [Flagyl 500 MG] 500 mg PO TID #21 tablet Levofloxacin [Levaquin] 500 mg PO DAILY #7 tablet Continue Hydrochlorothiazide 12.5 mg PO DAILY Carvedilol 3.125 mg [Coreg 3.125 MG] 3.125 mg PO BID Psyllium Husk [Daily Fiber] 0.52 gm DAILY Rosuvastatin Calcium 10 mg DAILY Albuterol Sulfate [Proair Hfa] 2 puffs QID PRN PRN Reason: Shortness Of Breath Potassium Chloride [Klor-Con 10] 10 meq DAILY Ezetimibe 10 mg PO DAILY Polyethylene Glycol 3350 [Miralax] 17 gm DAILY Discontinued Lisinopril 10 mg [Zestril 10 MG] 10 mg PO DAILY Amlodipine Besylate 10 mg [Norvasc 10 MG] 10 mg PO DAILY Follow up with: PAULA SWARTZ [Primary Care Provider] - 1 Week
[2018-05-09] MEDS: Zetia 10 MG PO SCH (09:26)
[2018-05-09] MEDS: ZOCOR 20MG PO SCH (09:26)
[2018-05-09] MEDS: Coreg 3.125 MG PO SCH (09:27)
[2018-05-09] MEDS: Miralax Powder 17GM PACKET PO SCH (09:29)
[2018-05-09] MEDS: hydroDIURIL 25 MG PO SCH (09:29)
[2018-05-09 10:41] VITALS: BP 104/47; PULSE 78; O2SAT 97
== END 2018-05-09 11:12 | disposition home or self-care (01) ==
LOC: ED 14:47 → ICU 20:37 → UNDOADMOB 20:37 → MED SURG 05-08 09:57
PROVIDERS: ADMIT Family Medicine; ATTEND Family Medicine
DX: K57.32 Diverticulitis of large intestine without perforation or abscess without bleeding (principal); N17.9 Acute kidney failure, unspecified; I12.9 Hypertensive chronic kidney disease with stage 1 through stage 4 chronic kidney disease, or unspecified chronic kidney disease; N18.9 Chronic kidney disease, unspecified; K59.00 Constipation, unspecified; E87.5 Hyperkalemia; J44.9 Chronic obstructive pulmonary disease, unspecified; K52.9 Noninfective gastroenteritis and colitis, unspecified; M19.90 Unspecified osteoarthritis, unspecified site; E78.00 Pure hypercholesterolemia, unspecified; Z85.828 Personal history of other malignant neoplasm of skin; Z87.891 Personal history of nicotine dependence; Z79.899 Other long term (current) drug therapy
CPT/HCPCS: 36415; 71045; 74176; 80048; 80053; 81000; 82150; 83605; 83690; 84484; 85025; 87040; 87086; 93005; 93268; 94640; 94760; 96360; 96361; 96365; 96374; 99285; J0610; J1650; J1956; J2405; A9270-GY; G0378

== ENCOUNTER 2018-10-29 22:27 | Inpatient (IN) | payer MEDICARE, OTHER ==
[2018-10-29] MEDS ORDERED: Zofran 4 MG/2 ML VIAL IV ONE (22:46)
[2018-10-29] MEDS ORDERED: Sodium Chloride 0.9% 1000 ML 1,000 ML IV STA (22:46)
--- NOTE | 2018-10-29 22:46 | ERPHSYRPT ---
- History of Present Illness Time Seen by Provider: 10/29/18 22:41 Historian: patient, family Exam Limitations: no limitations Physician History: Patient is a 78-year-old female with her complaining that she started to vomit and have some mild abdominal pain after been getting her preparation this evening or colonoscopy in the morning at this hospital. She took about one half of the Dulce-Lax Prep and started to vomit. She has not had a bowel movement. She is preparing for colonoscopy to try to determine why she has episodes of constipation that began in March. She denies fever or chills. She denies lightheadedness. She denies chest pain or shortness of breath. Her past medical history is significant for CAD, HTN, AAA repair, diverticulitis, arterial stents, lung cancer, COPD, and skin cancer. Timing/Duration: today Activities at Onset: other (taking colonoscopy prep) Quality: cramping Abdominal Pain Onset Location: LLQ Pain Radiation: no radiation Severity of Pain-Max: moderate Severity of Pain-Current: moderate Modifying Factors: Improves With: vomiting Associated Symptoms: nausea, vomiting Previous symptoms: no prior history Allergies/Adverse Reactions: Iodinated Contrast- Oral and IV Dye [Iodinated Contrast Media - IV Dye] Allergy (Intermediate, Verified 10/29/18 22:53) penicillin G Allergy (Mild, Verified 10/29/18 22:53) Swelling Sulfa (Sulfonamide Antibiotics) [Sulfa(Sulfonamide Antibiotics)] Allergy (Mild, Verified 10/29/18 22:53) Hives Home Medications: Carvedilol 3.125 mg [Coreg 3.125 MG] 6.25 mg PO BID 09/13/14 [History] Hydrochlorothiazide 12.5 mg PO DAILY 09/13/14 [History] Ezetimibe 10 mg PO DAILY 05/07/18 [History] Rosuvastatin Calcium [Crestor] 10 mg PO DAILY 10/29/18 [History] Hx Tetanus, Diphtheria Vaccination/Date Given: Yes Hx Influenza Vaccination/Date Given: Yes Hx Pneumococcal Vaccination/Date Given: Yes - Review of Systems Constitutional: No Fever, No Chills Eyes: No Symptoms Ears, Nose, & Throat: No Symptoms Respiratory: No Cough, No Dyspnea Cardiac: No Chest Pain, No Edema, No Syncope Abdominal/Gastrointestinal: Abdominal Pain, Nausea, Vomiting, Constipation Genitourinary Symptoms: No Dysuria Musculoskeletal: No Back Pain, No Neck Pain Skin: No Rash Neurological: No Dizziness, No Focal Weakness, No Sensory Changes Psychological: No Symptoms Endocrine: No Symptoms Hematologic/Lymphatic: No Symptoms Immunological/Allergic: No Symptoms All Other Systems: Reviewed and Negative - Past Medical History Pertinent Past Medical History: Yes Neurological History: No Pertinent History ENT History: No Pertinent History Cardiac History: High Cholesterol, Hypertension Respiratory History: COPD, Lung Cancer, Pneumonia Endocrine Medical History: No Pertinent History Musculoskeletal History: Arthritis GI Medical History: No Pertinent History History: Renal Disease, Other Psycho-Social History: No Pertinent History Female Reproductive Disorders: No Pertinent History Other Medical History: MULTIPLE SKIN CANCERS, 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 smaller than the other - Past Surgical History Past Surgical History: Yes Neuro Surgical History: No Pertinent History Cardiac: Cardiac Catheterization Respiratory: No Pertinent History Gastrointestinal: Other Genitourinary: No Pertinent History Musculoskeletal: No Pertinent History Female Surgical History: Lumpectomy Other Surgical History: TRIPLE A REPAIR. BRUSH BIOPSY. COLONOSCOPY. MULTIPLE SKIN CANCERS REMOVED. STENTS IN BILAT LEGS - Social History Smoking Status: Former smoker Exposure to second hand smoke: No Alcohol Use: None Drug Use: none Patient Lives Alone: Yes Significant Family History: cancer - Nursing Vital Signs Nursing Vital Signs: Initial Vital Signs Temperature 97.6 F 10/29/18 22:35 Pulse Rate 101 H 10/29/18 22:35 Respiratory Rate 18 10/29/18 22:35 Blood Pressure 175/63 10/29/18 22:35 O2 Sat by Pulse Oximetry 94 L 10/29/18 22:35 Pain Scale Pain Intensity 3 - Physical Exam General Appearance: no apparent distress, alert Eye Exam: PERRL/EOMI, eyes nml inspection Ears, Nose, Throat Exam: normal ENT inspection, pharynx normal, moist mucous membranes Neck Exam: normal inspection, non-tender, supple, full range of motion Respiratory Exam: normal breath sounds, lungs clear, No respiratory distress Cardiovascular Exam: regular rate/rhythm, normal heart sounds Gastrointestinal/Abdomen Exam: normal bowel sounds, tenderness (LLQ) Pelvic Exam: not done Rectal Exam: not done Back Exam: normal inspection, normal range of motion, No CVA tenderness, No vertebral tenderness Extremity Exam: normal inspection, normal range of motion, pelvis stable Neurologic Exam: alert, oriented x 3, cooperative, normal mood/affect, nml cerebellar function, sensation nml, No motor deficits Skin Exam: normal color, warm, dry SpO2 Interpretation: normal Oxygen Delivery: Room Air - Course EKG Interpreted by Me: RATE, Sinus Rhythm, NORMAL AXIS, NORMAL QRS, NORMAL ST-T , Other (no change compared to EKG from 10/10/18.) - CT Exams Abdomen/Pelvis CT Interpretation: Tele-radiologist Report (per Dr Hodge), Other (CT scan of the abdomen and pelvis without contrast: Severe fluid distention of the colon extending from the cecum to the mid sigmoid colon. There is sharp caliber transition in the sigmoid colon. The colon beyond this level is collapsed. Mild amount of fat stranding and small fluid adjacent to the sharp transition zone. Suspect colonic obstruction possibly from chronic diverticulitis, colitis , malignancy. There is incompletely visualized consolidation and they superior segment of the right lower lobe suggesting pneumonia.) Ordered Tests: Active Orders 24 hr Category Date Time Status EKG-ER Only STAT Care 10/29/18 22:46 Active IV Insertion STAT Care 10/29/18 22:46 Active ABDOMEN AND PELVIS W/0 CONTRAS [CT] Stat Exams 10/29/18 22:47 Taken CBC W DIFF Stat Lab 10/29/18 22:57 Completed CMP Stat Lab 10/29/18 22:57 Completed LIPASE Stat Lab 10/29/18 22:57 Completed Lactic Acid Stat Lab 10/29/18 22:55 Completed TROPONIN Q3H Lab 10/29/18 22:57 Completed TROPONIN Q3H Lab 10/30/18 02:00 Ordered TROPONIN Q3H Lab 10/30/18 05:00 Ordered TROPONIN Q3H Lab 10/30/18 08:00 Ordered TROPONIN Q3H Lab 10/30/18 11:00 Ordered UA W/RFX UR CULTURE Stat Lab 10/29/18 00:01 Completed Medication Summary Discontinued Medications Generic Name Dose Route Start Last Admin Trade Name Freq PRN Reason Stop Dose Admin Sodium Chloride 1,000 mls @ 999 mls/hr 10/29/18 22:46 10/30/18 00:24 Sodium Chloride 0.9% 1000 Ml IV 10/29/18 23:46 Infused .Q1H1M STA Infusion Sodium Chloride Confirm 10/29/18 22:52 Sodium Chloride 0.9% 1000 Ml Administered 10/29/18 22:53 Dose 1,000 mls @ ud .ROUTE .STK-MED ONE Ondansetron HCl 4 mg 10/29/18 22:46 10/29/18 22:56 Zofran 4 Mg/2 Ml Vial IV 10/29/18 22:47 4 mg STAT ONE Administration Ondansetron HCl Confirm 10/29/18 22:52 Zofran 4 Mg/2 Ml Vial Administered 10/29/18 22:53 Dose 4 mg .ROUTE .STK-MED ONE Lab/Rad Data: Laboratory Result Diagrams 10/29/18 22:57 10/29/18 22:57 Laboratory Results 10/29/18 10/29/18 10/29/18 Range/Units 22:57 22:57 22:57 WBC 12.8 H (4.0-10.5) K/mm3 RBC 4.58 (4.1-5.4) M/mm3 Hgb 13.3 (12.0-16.0) gm/dl Hct 41.4 (35-47) % MCV 90.4 (78-100) fl MCH 29.0 (26-32) pg MCHC 32.1 (32-36) g/dl RDW 14.3 H (11.5-14.0) % Plt Count 263 (150-450) K/mm3 MPV 10.4 H (6-9.5) fl Gran % 80.1 H (36.0-66.0) % Eos # (Auto) 0.07 (0-0.5) Absolute Lymphs (auto) 1.61 (1.0-4.6) Absolute Monos (auto) 0.86 (0.0-1.3) Lymphocytes % 12.6 L (24.0-44.0) % Monocytes % 6.7 (0.0-12.0) % Eosinophils % 0.5 (0.00-5.0) % Basophils % 0.1 (0.0-0.4) % Absolute Granulocytes 10.26 H (1.4-6.9) Basophils # 0.01 (0-0.4) Sodium 140 (137-145) mmol/L Potassium 3.6 (3.5-5.1) mmol/L Chloride 99 (98-107) mmol/L Carbon Dioxide 26 (22-30) mmol/L Anion Gap 18.7 H (5-15) MEQ/L BUN 16 (7-17) mg/dL Creatinine 0.98 (0.52-1.04) mg/dL Estimated GFR 58.6 ML/MIN Glucose 116 H (74-106) mg/dL Lactic Acid (0.4-2.0) Calcium 9.9 (8.4-10.2) mg/dL Total Bilirubin 0.70 (0.2-1.3) mg/dL AST 25 (14-36) U/L ALT 13 (0-35) U/L Alkaline Phosphatase 131 H (38-126) U/L Troponin I < 0.012 (0.000-0.034) ng/mL Serum Total Protein 7.4 (6.3-8.2) g/dL Albumin 4.3 (3.5-5.0) g/dL Lipase 95 (23-300) U/L Urine Color (YELLOW) Urine Appearance (CLEAR) Urine pH (5-6) Ur Specific [place] (1.005-1.025) Urine Protein (Negative) Urine Ketones (NEGATIVE) Urine Blood (0-5) Yahir/ul Urine Nitrite (NEGATIVE) Urine Bilirubin (NEGATIVE) Urine Urobilinogen (0-1) mg/dL Ur Leukocyte Esterase (NEGATIVE) Urine WBC (Auto) (0-5) /HPF Urine RBC (Auto) (0-2) /HPF U Epithel Cells (Auto) (FEW) /HPF Urine Bacteria (Auto) (NEGATIVE) /HPF Urine Mucus (Auto) (NEGATIVE) /HPF Urine Culture Reflexed (NO) Urine Glucose (NEGATIVE) mg/dL 10/29/18 10/29/18 Range/Units 22:55 00:01 WBC (4.0-10.5) K/mm3 RBC (4.1-5.4) M/mm3 Hgb (12.0-16.0) gm/dl Hct (35-47) % MCV (78-100) fl MCH (26-32) pg MCHC (32-36) g/dl RDW (11.5-14.0) % Plt Count (150-450) K/mm3 MPV (6-9.5) fl Gran % (36.0-66.0) % Eos # (Auto) (0-0.5) Absolute Lymphs (auto) (1.0-4.6) Absolute Monos (auto) (0.0-1.3) Lymphocytes % (24.0-44.0) % Monocytes % (0.0-12.0) % Eosinophils % (0.00-5.0) % Basophils % (0.0-0.4) % Absolute Granulocytes (1.4-6.9) Basophils # (0-0.4) Sodium (137-145) mmol/L Potassium (3.5-5.1) mmol/L Chloride (98-107) mmol/L Carbon Dioxide (22-30) mmol/L Anion Gap (5-15) MEQ/L BUN (7-17) mg/dL Creatinine (0.52-1.04) mg/dL Estimated GFR ML/MIN Glucose (74-106) mg/dL Lactic Acid 1.4 (0.4-2.0) Calcium (8.4-10.2) mg/dL Total Bilirubin (0.2-1.3) mg/dL AST (14-36) U/L ALT (0-35) U/L Alkaline Phosphatase (38-126) U/L Troponin I (0.000-0.034) ng/mL Serum Total Protein (6.3-8.2) g/dL Albumin (3.5-5.0) g/dL Lipase (23-300) U/L Urine Color YELLOW (YELLOW) Urine Appearance CLEAR (CLEAR) Urine pH 5.0 (5-6) Ur Specific [place] 1.016 (1.005-1.025) Urine Protein NEGATIVE (Negative) Urine Ketones SMALL (NEGATIVE) Urine Blood NEGATIVE (0-5) Yahir/ul Urine Nitrite NEGATIVE (NEGATIVE) Urine Bilirubin NEGATIVE (NEGATIVE) Urine Urobilinogen NEGATIVE (0-1) mg/dL Ur Leukocyte Esterase TRACE (NEGATIVE) Urine WBC (Auto) 3-5 (0-5) /HPF Urine RBC (Auto) NONE (0-2) /HPF U Epithel Cells (Auto) RARE (FEW) /HPF Urine Bacteria (Auto) NONE SEEN (NEGATIVE) /HPF Urine Mucus (Auto) SLIGHT (NEGATIVE) /HPF Urine Culture Reflexed NO (NO) Urine Glucose NEGATIVE (NEGATIVE) mg/dL - Progress Progress: improved, pain not gone completely Discussed with Dr.: Butler (discussed CT findings with Luke. will admit and talk with surgeon.), Quinton (admit without enema for Eligio Carvajal to eval in morning.) Will see patient in: hospital (observation) Counseled pt/family regarding: lab results, diagnosis, rad results - Departure Time of Disposition: 00:56 Departure Disposition: Observation (per Dr Butler) Clinical Impression: Abdominal pain, Vomiting, Colonic obstruction, Pneumonia Condition: Stable Critical Care Time: No Referrals: PAULA SWARTZ [Primary Care Provider] -
[2018-10-29] MEDS ORDERED: Zofran 4 MG/2 ML VIAL ONE (22:52)
[2018-10-29] MEDS ORDERED: Sodium Chloride 0.9% 1000 ML 1,000 ML ONE (22:52)
[2018-10-29 23:00] LABS: BASOPHIL % 0.1 % (0.0-0.4); Basophil (Absolute #) 0.01 (0-0.4); Eosinophil % 0.5 % (0.00-5.0); Eosinophil (Absolute #) 0.07 (0-0.5); Granulocyte Absolute (ANC) 10.26 (1.4-6.9); Granulocytes % 80.1 % (36.0-66.0); Hematocrit 41.4 % (35-47); Hemoglobin 13.3 gm/dl (12.0-16.0); Lymphocyte (Absolute #) 1.61 (1.0-4.6); Lymphocytes % 12.6 % (24.0-44.0); Mean Cell Volume 90.4 fl (78-100); Mean Corpuscular Hgb Concent. 32.1 g/dl (32-36); Mean Platelet Volume 10.4 fl (6-9.5); Monocyte (Absolute #) 0.86 (0.0-1.3); Monocytes % 6.7 % (0.0-12.0); Platelet Count 263 K/mm3 (150-450); Red Blood Count 4.58 M/mm3 (4.1-5.4); Red Cell Distribution Width 14.3 % (11.5-14.0); White Blood Count 12.8 K/mm3 (4.0-10.5)
[2018-10-29 23:16] LABS: ALBUMIN 4.3 g/dL (3.5-5.0); ANION GAP 18.7 MEQ/L (5-15); BILIRUBIN,TOTAL 0.7 mg/dL (0.2-1.3); Calcium 9.9 mg/dL (8.4-10.2); Creatinine 1 0.98 mg/dL (0.52-1.04); Potassium 3.6 mmol/L (3.5-5.1); Total Protein 7.4 g/dL (6.3-8.2)
[2018-10-30 00:12] LABS: Appearance CLEAR (CLEAR); Bilirubin NEGATIVE (NEGATIVE); Blood NEGATIVE Ery/ul (0-5); Glucose NEGATIVE (NEGATIVE); Ketones SMALL (NEGATIVE); Leukocyte Esterase TRACE (NEGATIVE); Nitrite NEGATIVE (NEGATIVE); Protein,Urine Dip NEGATIVE (Negative); Specific Gravity 1.016 (1.005-1.025); Urobilinogen NEGATIVE mg/dL (0-1)
[2018-10-30] MEDS ORDERED: ROCEPHIN 1 Gm-D5w 50 ml Bag** 1 G/50 ML IVPB IV STA (00:58)
[2018-10-30] MEDS ORDERED: ROCEPHIN 1 Gm-D5w 50 ml Bag** 1 G/50 ML IVPB IV ONE (01:00)
[2018-10-30] MEDS ORDERED: Sodium Chloride 0.9% 1000 ML 1,000 ML IV SCH (01:44)
[2018-10-30] MEDS ORDERED: Phenergan 25 MG INJ IV PRN (01:44)
[2018-10-30] MEDS ORDERED: FEVERALL 650 MG PR PRN (02:03)
[2018-10-30 06:04] LABS: BASOPHIL % 0.1 % (0.0-0.4); Basophil (Absolute #) 0.01 (0-0.4); Eosinophil % 0.4 % (0.00-5.0); Eosinophil (Absolute #) 0.03 (0-0.5); Granulocyte Absolute (ANC) 5.44 (1.4-6.9); Hematocrit 34.3 % (35-47); Hemoglobin 10.9 gm/dl (12.0-16.0); Lymphocyte (Absolute #) 1.84 (1.0-4.6); Lymphocytes % 22.3 % (24.0-44.0); Mean Cell Volume 91.7 fl (78-100); Mean Corpuscular Hemoglobin 29.1 pg (26-32); Mean Corpuscular Hgb Concent. 31.8 g/dl (32-36); Mean Platelet Volume 10.8 fl (6-9.5); Monocyte (Absolute #) 0.92 (0.0-1.3); Monocytes % 11.2 % (0.0-12.0); Platelet Count 232 K/mm3 (150-450); Red Blood Count 3.74 M/mm3 (4.1-5.4); Red Cell Distribution Width 14.3 % (11.5-14.0); White Blood Count 8.2 K/mm3 (4.0-10.5)
[2018-10-30 06:17] LABS: ANION GAP 13.1 MEQ/L (5-15); BLOOD UREA NITROGEN 15 mg/dL (7-17); CHLORIDE 104 mmol/L (98-107); Calcium 8.9 mg/dL (8.4-10.2); Carbon Dioxide 26 mmol/L (22-30); Glucose 85 mg/dL (74-106); Potassium 3.5 mmol/L (3.5-5.1); SODIUM 140 mmol/L (137-145)
--- NOTE | 2018-10-30 08:34 | PCM.HP ---
History of Present Illness - Chief Complaint Chief Complaint: vomiting, colon obstruction, pneumonia Date: 10/30/18 History of Present Illness: is a 78 year old female. who has been having several weeks of intermittent left lower quadrant discomfort. she had a small bm yesterday and then began her prep for colonoscopy today and had no further bm but began having severe abdominal pain and vomiting. She came to the ED. She has had no recent fever, chills, cough or shortness of breath. She had a bronchoscopy [address] Catalan for "a spot on the lung". Per the patient it was told to her that it was not cancer and he took samples and washings. She has no chest pain or shortness of breath. - Review of Systems Constitutional: No Fever, No Chills Eyes: No Symptoms Ears, Nose, & Throat: No Symptoms Respiratory: No Cough, No Short Of Breath Cardiac: No Chest Pain, No Edema, No Syncope Abdominal/Gastrointestinal: Abdominal Pain, Nausea, Vomiting, Constipation, No Diarrhea Genitourinary Symptoms: No Dysuria Musculoskeletal: No Back Pain, No Neck Pain Skin: No Rash Neurological: No Dizziness, No Focal Weakness, No Sensory Changes Psychological: No Symptoms Endocrine: No Symptoms Hematologic/Lymphatic: No Symptoms Immunological/Allergic: No Symptoms Medications & Allergies Home Medications: Home Medication List Carvedilol 3.125 mg [Coreg 3.125 MG] 6.25 mg PO BID 09/13/14 [History Confirmed 10/30/18] Hydrochlorothiazide 12.5 mg PO DAILY 09/13/14 [History Confirmed 10/30/18] Ezetimibe 10 mg PO DAILY 05/07/18 [History Confirmed 10/30/18] Rosuvastatin Calcium [Crestor] 10 mg PO DAILY 10/29/18 [History Confirmed ] Allergies/Adverse Reactions: Allergies Allergy/AdvReac Type Severity Reaction Status Date / Time Iodinated Contrast- Oral and Allergy Intermediate Verified 10/29/18 22:53 IV Dye [Iodinated Contrast Media - IV Dye] penicillin G Allergy Mild Swelling Verified 10/29/18 22:53 Sulfa (Sulfonamide Allergy Mild Hives Verified 10/29/18 22:53 Antibiotics) [Sulfa(Sulfonamide Antibiotics)] - Past Medical History Past Medical History: Yes Neurological History: No Pertinent History ENT History: Cataracts Cardiac History: High Cholesterol, Hypertension Respiratory History: COPD, Lung Cancer, Pneumonia Endocrine Medical History: No Pertinent History Musculoskelatal History: Arthritis GI Medical History: Diverticulitis, Hemorrhoids History: Dialysis, Renal Disease Pyscho-Social History: No Pertinent History Reproductive Disorders: No Pertinent History Comment: MULTIPLE SKIN CANCERS, pt states she "only has 1 kidney", 1 kidney functions at 36% and the other at 5% (per pt). - Female History Are you now?: No - Past Surgical History Past Surgical History: Yes Neuro Surgical History: No Pertinent History Cardiac History: Other Respiratory Surgery: No Pertinent History GI Surgical History: Other Genitourinary Surgical Hx: No Pertinent History Musculskeletal Surgical Hx: No Pertinent History Female Surgical History: Lumpectomy Other Surgical History: TRIPLE A REPAIR. BRUSH BIOPSY. COLONOSCOPY. MULTIPLE SKIN CANCERS REMOVED. STENTS IN BILAT LEGS - Social History Smoking Status: Former smoker How long have you smoked: 38 Exposure to second hand smoke: Yes Alcohol: None Drug Use: none Significant Family History: cancer - Physical Exam Vital Signs: Vital Signs - 24 hr Temp Pulse Resp BP Pulse Ox 10/30/18 07:37 93 L 10/30/18 07:13 98.0 F 85 18 114/55 97 10/30/18 04:00 18 10/30/18 03:52 98.4 F 96 H 18 121/56 96 10/30/18 02:07 98.0 F 93 H 17 113/56 94 L 10/30/18 01:44 94 L 10/30/18 01:25 89 18 117/49 94 L 10/30/18 00:51 93 H 18 143/49 95 10/29/18 23:59 84 18 125/45 94 L 10/29/18 22:35 97.6 F 101 H 18 175/63 94 L General Appearance: no apparent distress, alert Neurologic Exam: alert, oriented x 3, cooperative, normal mood/affect, nml cerebellar function, nml station & gait, sensation nml, No motor deficits Eye Exam: PERRL/EOMI, eyes nml inspection Ears, Nose, Throat Exam: normal ENT inspection, pharynx normal, moist mucous membranes Neck Exam: normal inspection, non-tender, supple, full range of motion Respiratory Exam: normal breath sounds, lungs clear, No respiratory distress Cardiovascular Exam: regular rate/rhythm, normal heart sounds, normal peripheral pulses Gastrointestinal/Abdomen Exam: soft, normal bowel sounds, distention, No tenderness, No mass Back Exam: normal inspection, normal range of motion, No CVA tenderness, No vertebral tenderness Extremity Exam: normal inspection, normal range of motion, pelvis stable Skin Exam: normal color, warm, dry, No rash Lymphatic Exam: No adenopathy Results - Labs Lab/Micro Results: Lab Results-Last 24 Hours 10/29/18 10/29/18 10/29/18 Range/Units 00:01 22:55 22:57 WBC 12.8 H (4.0-10.5) K/mm3 RBC 4.58 (4.1-5.4) M/mm3 Hgb 13.3 (12.0-16.0) gm/dl Hct 41.4 (35-47) % MCV 90.4 (78-100) fl MCH 29.0 (26-32) pg MCHC 32.1 (32-36) g/dl RDW 14.3 H (11.5-14.0) % Plt Count 263 (150-450) K/mm3 MPV 10.4 H (6-9.5) fl Gran % 80.1 H (36.0-66.0) % Eos # (Auto) 0.07 (0-0.5) Absolute Lymphs (auto) 1.61 (1.0-4.6) Absolute Monos (auto) 0.86 (0.0-1.3) Lymphocytes % 12.6 L (24.0-44.0) % Monocytes % 6.7 (0.0-12.0) % Eosinophils % 0.5 (0.00-5.0) % Basophils % 0.1 (0.0-0.4) % Absolute Granulocytes 10.26 H (1.4-6.9) Basophils # 0.01 (0-0.4) Sodium (137-145) mmol/L Potassium (3.5-5.1) mmol/L Chloride (98-107) mmol/L Carbon Dioxide (22-30) mmol/L Anion Gap (5-15) MEQ/L BUN (7-17) mg/dL Creatinine (0.52-1.04) mg/dL Estimated GFR ML/MIN Glucose (74-106) mg/dL Lactic Acid 1.4 (0.4-2.0) Calcium (8.4-10.2) mg/dL Total Bilirubin (0.2-1.3) mg/dL AST (14-36) U/L ALT (0-35) U/L Alkaline Phosphatase (38-126) U/L Troponin I (0.000-0.034) ng/mL Serum Total Protein (6.3-8.2) g/dL Albumin (3.5-5.0) g/dL Lipase (23-300) U/L Urine Color YELLOW (YELLOW) Urine Appearance CLEAR (CLEAR) Urine pH 5.0 (5-6) Ur Specific [place] 1.016 (1.005-1.025) Urine Protein NEGATIVE (Negative) Urine Ketones SMALL (NEGATIVE) Urine Blood NEGATIVE (0-5) Yahir/ul Urine Nitrite NEGATIVE (NEGATIVE) Urine Bilirubin NEGATIVE (NEGATIVE) Urine Urobilinogen NEGATIVE (0-1) mg/dL Ur Leukocyte Esterase TRACE (NEGATIVE) Urine WBC (Auto) 3-5 (0-5) /HPF Urine RBC (Auto) NONE (0-2) /HPF U Epithel Cells (Auto) RARE (FEW) /HPF Urine Bacteria (Auto) NONE SEEN (NEGATIVE) /HPF Urine Mucus (Auto) SLIGHT (NEGATIVE) /HPF Urine Culture Reflexed NO (NO) Urine Glucose NEGATIVE (NEGATIVE) mg/dL 10/29/18 10/29/18 10/30/18 Range/Units 22:57 22:57 02:17 WBC (4.0-10.5) K/mm3 RBC (4.1-5.4) M/mm3 Hgb (12.0-16.0) gm/dl Hct (35-47) % MCV (78-100) fl MCH (26-32) pg MCHC (32-36) g/dl RDW (11.5-14.0) % Plt Count (150-450) K/mm3 MPV (6-9.5) fl Gran % (36.0-66.0) % Eos # (Auto) (0-0.5) Absolute Lymphs (auto) (1.0-4.6) Absolute Monos (auto) (0.0-1.3) Lymphocytes % (24.0-44.0) % Monocytes % (0.0-12.0) % Eosinophils % (0.00-5.0) % Basophils % (0.0-0.4) % Absolute Granulocytes (1.4-6.9) Basophils # (0-0.4) Sodium 140 (137-145) mmol/L Potassium 3.6 (3.5-5.1) mmol/L Chloride 99 (98-107) mmol/L Carbon Dioxide 26 (22-30) mmol/L Anion Gap 18.7 H (5-15) MEQ/L BUN 16 (7-17) mg/dL Creatinine 0.98 (0.52-1.04) mg/dL Estimated GFR 58.6 ML/MIN Glucose 116 H (74-106) mg/dL Lactic Acid (0.4-2.0) Calcium 9.9 (8.4-10.2) mg/dL Total Bilirubin 0.70 (0.2-1.3) mg/dL AST 25 (14-36) U/L ALT 13 (0-35) U/L Alkaline Phosphatase 131 H (38-126) U/L Troponin I < 0.012 < 0.012 (0.000-0.034) ng/mL Serum Total Protein 7.4 (6.3-8.2) g/dL Albumin 4.3 (3.5-5.0) g/dL Lipase 95 (23-300) U/L Urine Color (YELLOW) Urine Appearance (CLEAR) Urine pH (5-6) Ur Specific [place] (1.005-1.025) Urine Protein (Negative) Urine Ketones (NEGATIVE) Urine Blood (0-5) Yahir/ul Urine Nitrite (NEGATIVE) Urine Bilirubin (NEGATIVE) Urine Urobilinogen (0-1) mg/dL Ur Leukocyte Esterase (NEGATIVE) Urine WBC (Auto) (0-5) /HPF Urine RBC (Auto) (0-2) /HPF U Epithel Cells (Auto) (FEW) /HPF Urine Bacteria (Auto) (NEGATIVE) /HPF Urine Mucus (Auto) (NEGATIVE) /HPF Urine Culture Reflexed (NO) Urine Glucose (NEGATIVE) mg/dL 10/30/18 10/30/18 10/30/18 Range/Units 05:23 05:23 05:23 WBC 8.2 (4.0-10.5) K/mm3 RBC 3.74 L (4.1-5.4) M/mm3 Hgb 10.9 L (12.0-16.0) gm/dl Hct 34.3 L (35-47) % MCV 91.7 (78-100) fl MCH 29.1 (26-32) pg MCHC 31.8 L (32-36) g/dl RDW 14.3 H (11.5-14.0) % Plt Count 232 (150-450) K/mm3 MPV 10.8 H (6-9.5) fl Gran % 66.0 (36.0-66.0) % Eos # (Auto) 0.03 (0-0.5) Absolute Lymphs (auto) 1.84 (1.0-4.6) Absolute Monos (auto) 0.92 (0.0-1.3) Lymphocytes % 22.3 L (24.0-44.0) % Monocytes % 11.2 (0.0-12.0) % Eosinophils % 0.4 (0.00-5.0) % Basophils % 0.1 (0.0-0.4) % Absolute Granulocytes 5.44 (1.4-6.9) Basophils # 0.01 (0-0.4) Sodium 140 (137-145) mmol/L Potassium 3.5 (3.5-5.1) mmol/L Chloride 104 (98-107) mmol/L Carbon Dioxide 26 (22-30) mmol/L Anion Gap 13.1 (5-15) MEQ/L BUN 15 (7-17) mg/dL Creatinine 0.80 (0.52-1.04) mg/dL Estimated GFR > 60.0 ML/MIN Glucose 85 (74-106) mg/dL Lactic Acid (0.4-2.0) Calcium 8.9 (8.4-10.2) mg/dL Total Bilirubin (0.2-1.3) mg/dL AST (14-36) U/L ALT (0-35) U/L Alkaline Phosphatase (38-126) U/L Troponin I < 0.012 (0.000-0.034) ng/mL Serum Total Protein (6.3-8.2) g/dL Albumin (3.5-5.0) g/dL Lipase (23-300) U/L Urine Color (YELLOW) Urine Appearance (CLEAR) Urine pH (5-6) Ur Specific [place] (1.005-1.025) Urine Protein (Negative) Urine Ketones (NEGATIVE) Urine Blood (0-5) Yahir/ul Urine Nitrite (NEGATIVE) Urine Bilirubin (NEGATIVE) Urine Urobilinogen (0-1) mg/dL Ur Leukocyte Esterase (NEGATIVE) Urine WBC (Auto) (0-5) /HPF Urine RBC (Auto) (0-2) /HPF U Epithel Cells (Auto) (FEW) /HPF Urine Bacteria (Auto) (NEGATIVE) /HPF Urine Mucus (Auto) (NEGATIVE) /HPF Urine Culture Reflexed (NO) Urine Glucose (NEGATIVE) mg/dL - Radiology Impressions Radiology Exams & Impressions: Radiology Procedures Category Date Time Status ABDOMEN AND PELVIS W/0 CONTRAS [CT] Stat Exams 10/29/18 22:47 Taken Assessment/Plan (1) Large bowel obstruction Current Visit: Yes Status: Acute Assessment & Plan: npo iv fluids teds await surgical evaluation for further plan i did discuss surgical risks with her and no further testing recommended preop at this time should surgery be required Code(s): K56.609 - UNSP INTESTNL OBST, UNSP TO PARTIAL VERSUS COMPLETE OBST (2) Pneumonia Current Visit: Yes Status: Acute Assessment & Plan: this is a radiographic finidng clinically she was doing well up until the prep will cover for pneumonia with antibiotics pending surgical evaluation and plan Code(s): J18.9 - PNEUMONIA, UNSPECIFIED ORGANISM (3) Essential hypertension Current Visit: Yes Status: Chronic Code(s): I10 - ESSENTIAL (PRIMARY) HYPERTENSION (4) COPD (chronic obstructive pulmonary disease) Current Visit: Yes Status: Chronic (5) Peripheral arterial disease Current Visit: Yes Status: Acute Assessment & Plan: AAA repair and bilateral leg stents in 2013 no previous cardiac stenting or heart disease known Code(s): I73.9 - PERIPHERAL VASCULAR DISEASE, UNSPECIFIED
--- NOTE | 2018-10-30 08:55 | XRAY ---
Indication: Left lower quadrant pain and constipation. Vomiting since colonoscopy prep. History right lung carcinoma 2007. Multiple contiguous axial images obtained through the abdomen and pelvis without contrast as ordered. Comparison: May 07, 2018. Lung bases demonstrates incompletely visualized pleural parenchymal consolidation in the superior segment of the right lower lobe. Stable lingular calcified granuloma. Heart is not enlarged. New small hiatal hernia. Noncontrasted stomach unremarkable. Interval worsening marked diffuse fluid/fecal debris throughout the colon to the level of the mid sigmoid colon with there is now tapering concerning for underlying mass and continued sigmoid stranding with small free fluid. No walled off fluid collection or free air. Stable distended gallbladder without gallstones or biliary distention. Right kidney remains small/atrophic compared to contralateral kidney with stable nonobstructing punctate calculus. Stable calcified hepatic/splenic granulomas. Remaining liver, pancreas, adrenal glands, kidneys, ureters, bladder, and uterus appear unremarkable for noncontrast exam. Stable heavy scattered aortoiliac calcifications with aortobiiliac bypass stent graft. Osseous structures intact again with mild degenerative changes throughout the spine and L1 Schmorl node. No ventral or inguinal hernias. Impression: 1. Again diffuse fluid/fecal debris throughout the colon to the level of the mid sigmoid colon where there is obstruction probably due to underlying mass. No perforation. 2. Stable distended gallbladder without gallstones, small right kidney with nonobstructing micro-calculus, small hiatal hernia, arteriosclerotic disease, and evidence for old granulomatous disease. 3. New incompletely visualized right lower lobe pleural parenchymal consolidation further detailed on CT chest September 26, 2018. Comment: Preliminary interpretation was made by [facility]. No critical discrepancy. CTDI 13.04
[2018-10-30] MEDS ORDERED: NON-FORMULARY ITEM (Rosuvastatin Calcium [Crestor] 10 MG) PO SCH (10:00)
[2018-10-30] MEDS ORDERED: Zithromax 500 MG/ 250 ML NaCl Premix 500 MG/250 ML IVPB IV SCH (10:00)
[2018-10-30] MEDS ORDERED: Coreg 3.125 MG PO SCH (10:00)
[2018-10-30] MEDS ORDERED: Ketamine HCl 50 MG/ML IJ ONE (11:07)
[2018-10-30] MEDS ORDERED: Lactated Ringers 1,000 ML IV SCH (11:30)
[2018-10-30] MEDS ORDERED: CLINDAMYCIN-D5W 900 MG/50 ML*** 900 MG/50 ML BAG IV SCH (12:00)
[2018-10-30] MEDS ORDERED: Levofloxacin 500MG/100ML D5W 500 MG/100 ML BAG IV SCH (12:00)
[2018-10-30] MEDS: Coreg 6.25 MG PO SCH ×2 (12:02→21:30)
[2018-10-30] MEDS ORDERED: MEFOXIN 2 GM PREMIX** 2 GM/50 ML ML IV SCH (13:00)
[2018-10-30] MEDS ORDERED: Lactated Ringers 1,000 ML IV ONE ×2 (16:18→18:32)
[2018-10-30] MEDS: Dextrose 5%-NS IV Solution 1000 ML 1,000 ML IV SCH (20:30)
[2018-10-30] MEDS ORDERED: NORCO 5/325 MG PO PRN (20:31)
[2018-10-30] MEDS: Morphine PCA 1 MG/ML 30 ML IV PRN (20:38)
[2018-10-30 20:54] LABS: Appearance SLIGHTLY CLOUDY (CLEAR); Bilirubin NEGATIVE (NEGATIVE); Blood MODERATE Ery/ul (0-5); Glucose NEGATIVE (NEGATIVE); Ketones SMALL (NEGATIVE); Leukocyte Esterase NEGATIVE (NEGATIVE); Nitrite NEGATIVE (NEGATIVE); Protein,Urine Dip 30 (Negative); Specific Gravity 1.016 (1.005-1.025); Urobilinogen NEGATIVE mg/dL (0-1)
[2018-10-30] MEDS: FLAGYL 500 MG IVPB 500 MG/100 ML BAG IV SCH (21:30)
[2018-10-30] MEDS: ZOCOR 20MG PO SCH (21:30)
[2018-10-30] MEDS ORDERED: ROCEPHIN 1 Gm-D5w 50 ml Bag** 1 G/50 ML IVPB IV SCH (22:00)
[2018-10-31] MEDS: MEFOXIN 1 Gm/ D5W 50 Ml** 1 G/50 ML ML IV SCH ×2 (00:20→05:00)
[2018-10-31] MEDS: FLAGYL 500 MG IVPB 500 MG/100 ML BAG IV SCH ×3 (05:57→22:03)
[2018-10-31 06:17] LABS: ANION GAP 9.6 MEQ/L (5-15); Calcium 8.4 mg/dL (8.4-10.2); Creatinine 1 1.08 mg/dL (0.52-1.04); Potassium 4.5 mmol/L (3.5-5.1)
[2018-10-31 06:44] LABS: BASOPHIL % 0.1 % (0.0-0.4); Basophil (Absolute #) 0.01 (0-0.4); Eosinophil (Absolute #) 0 (0-0.5); Granulocytes % 90.5 % (36.0-66.0); Hematocrit 30.6 % (35-47); Hemoglobin 9.7 gm/dl (12.0-16.0); Lymphocyte (Absolute #) 0.75 (1.0-4.6); Lymphocytes % 4.2 % (24.0-44.0); Mean Cell Volume 93.3 fl (78-100); Mean Corpuscular Hgb Concent. 31.7 g/dl (32-36); Monocyte (Absolute #) 0.93 (0.0-1.3); Monocytes % 5.2 % (0.0-12.0); Platelet Count 209 K/mm3 (150-450); Red Blood Count 3.28 M/mm3 (4.1-5.4); Red Cell Distribution Width 14.6 % (11.5-14.0)
[2018-10-31 06:45] LABS: Mean Corpuscular Hemoglobin 29.5 pg (26-32)
--- NOTE | 2018-10-31 08:25 | PCM.NOTE ---
Date and Time: 10/31/18818 Subjective Assessment: so far feeling well has a sore throat she has limited pain she states only in her left lower quadrant when she moves her left leg tolerated the procedure well thus far Objective Exam General Appearance: no apparent distress Neurologic Exam: alert, oriented x 3, cooperative Skin Exam: warm, dry Eye Exam: PERRL Ears, Nose, Throat Exam: moist mucous membranes, other (NG tube in place) Neck Exam: normal inspection, non-tender, supple Cardiovascular Exam: regular rate/rhythm, normal heart sounds, No murmur Gastrointestinal/Abdomen Exam: soft, normal bowel sounds, tenderness, other ( good bowel sounds soft. ostomy with brown stool left lower quadrant 2 TORRIE drains with bloody drainage. ng with tiny outuput of yellow fluid.), No distention, No guarding Extremity Exam: normal inspection, other (SCD in place bilateral), No pedal edema, No swelling OBJECTIVE DATA Vital Signs: Vital Signs - 24 hr Temp Pulse Resp BP Pulse Ox 10/31/18 07:47 97 10/31/18 05:14 98 10/31/18 03:58 98.1 F 80 15 119/48 99 10/31/18 03:53 75 10/31/18 02:00 76 14 97/43 99 10/31/18 01:00 97.6 F 75 14 105/47 99 10/31/18 00:00 98.1 F 75 13 103/42 98 10/30/18 23:00 75 14 101/39 100 10/30/18 22:00 97.9 F 80 14 100/59 100 10/30/18 21:45 99 10/30/18 21:00 97.6 F 67 17 120/42 100 10/30/18 20:38 95 10/30/18 20:17 94 L 10/30/18 20:00 76 14 117/42 96 10/30/18 19:10 98 10/30/18 19:05 97.6 F 69 16 118/45 100 10/30/18 12:18 98.6 F 80 18 110/53 97 10/30/18 12:00 98.6 F 80 18 110/53 97 Oxygen-Last 24 hours O2 Percentage 2 Liters = 28% O2 Percentage 2 Liters = 28% O2 Percentage 2 Liters = 28% O2 Percentage 2 Liters = 28% O2 Percentage 2 Liters = 28% O2 Percentage 2 Liters = 28% O2 Percentage 4 Liters = 36% Oxygen Flowrate (L/min)-RT 4 Pain Assessment - Last Documented Pain Intensity 6 Pain Scale Used 0-10 Pain Scale Intake and Output: Intake & Output 10/28/18 10/29/18 10/30/18 10/31/18 11:59 11:59 11:59 11:59 Intake Total 0 1098 Output Total 150 2705 Balance -150 -1607 Weight 59.5 kg 59.5 kg Lab Results: Lab Results-Last 24 Hours 10/30/18 10/30/18 10/31/18 Range/Units 08:17 15:30 05:42 WBC 18.0 H (4.0-10.5) K/mm3 RBC 3.28 L (4.1-5.4) M/mm3 Hgb 9.7 L (12.0-16.0) gm/dl Hct 30.6 L (35-47) % MCV 93.3 (78-100) fl MCH 29.5 (26-32) pg MCHC 31.7 L (32-36) g/dl RDW 14.6 H (11.5-14.0) % Plt Count 209 (150-450) K/mm3 MPV 11.0 H (6-9.5) fl Gran % 90.5 H (36.0-66.0) % Eos # (Auto) 0 (0-0.5) Absolute Lymphs (auto) 0.75 L (1.0-4.6) Absolute Monos (auto) 0.93 (0.0-1.3) Lymphocytes % 4.2 L (24.0-44.0) % Monocytes % 5.2 (0.0-12.0) % Eosinophils % 0.0 (0.00-5.0) % Basophils % 0.1 (0.0-0.4) % Absolute Granulocytes 16.30 H (1.4-6.9) Basophils # 0.01 (0-0.4) Sodium (137-145) mmol/L Potassium (3.5-5.1) mmol/L Chloride (98-107) mmol/L Carbon Dioxide (22-30) mmol/L Anion Gap (5-15) MEQ/L BUN (7-17) mg/dL Creatinine (0.52-1.04) mg/dL Estimated GFR ML/MIN Glucose (74-106) mg/dL Calcium (8.4-10.2) mg/dL Troponin I < 0.012 (0.000-0.034) ng/mL Urine Color YELLOW (YELLOW) Urine Appearance SLIGHTLY CLOUDY (CLEAR) Urine pH 5.0 (5-6) Ur Specific [place] 1.016 (1.005-1.025) Urine Protein 30 (Negative) Urine Ketones SMALL (NEGATIVE) Urine Blood MODERATE (0-5) Yahir/ul Urine Nitrite NEGATIVE (NEGATIVE) Urine Bilirubin NEGATIVE (NEGATIVE) Urine Urobilinogen NEGATIVE (0-1) mg/dL Ur Leukocyte Esterase NEGATIVE (NEGATIVE) Urine WBC (Auto) 6-10 (0-5) /HPF Urine RBC (Auto) >101 (0-2) /HPF U Hyaline Cast (Auto) 0-2 (0-2) /LPF U Epithel Cells (Auto) FEW (FEW) /HPF Urine Bacteria (Auto) FEW (NEGATIVE) /HPF Other Casts (Auto) 2-5 (NEGATIVE) /LPF Urine Mucus (Auto) MODERATE (NEGATIVE) /HPF Urine Glucose NEGATIVE (NEGATIVE) mg/dL 10/31/18 Range/Units 05:42 WBC (4.0-10.5) K/mm3 RBC (4.1-5.4) M/mm3 Hgb (12.0-16.0) gm/dl Hct (35-47) % MCV (78-100) fl MCH (26-32) pg MCHC (32-36) g/dl RDW (11.5-14.0) % Plt Count (150-450) K/mm3 MPV (6-9.5) fl Gran % (36.0-66.0) % Eos # (Auto) (0-0.5) Absolute Lymphs (auto) (1.0-4.6) Absolute Monos (auto) (0.0-1.3) Lymphocytes % (24.0-44.0) % Monocytes % (0.0-12.0) % Eosinophils % (0.00-5.0) % Basophils % (0.0-0.4) % Absolute Granulocytes (1.4-6.9) Basophils # (0-0.4) Sodium 139 (137-145) mmol/L Potassium 4.5 D (3.5-5.1) mmol/L Chloride 106 (98-107) mmol/L Carbon Dioxide 29 (22-30) mmol/L Anion Gap 9.6 (5-15) MEQ/L BUN 18 H (7-17) mg/dL Creatinine 1.08 H (0.52-1.04) mg/dL Estimated GFR 52.4 ML/MIN Glucose 226 H (74-106) mg/dL Calcium 8.4 (8.4-10.2) mg/dL Troponin I (0.000-0.034) ng/mL Urine Color (YELLOW) Urine Appearance (CLEAR) Urine pH (5-6) Ur Specific [place] (1.005-1.025) Urine Protein (Negative) Urine Ketones (NEGATIVE) Urine Blood (0-5) Yahir/ul Urine Nitrite (NEGATIVE) Urine Bilirubin (NEGATIVE) Urine Urobilinogen (0-1) mg/dL Ur Leukocyte Esterase (NEGATIVE) Urine WBC (Auto) (0-5) /HPF Urine RBC (Auto) (0-2) /HPF U Hyaline Cast (Auto) (0-2) /LPF U Epithel Cells (Auto) (FEW) /HPF Urine Bacteria (Auto) (NEGATIVE) /HPF Other Casts (Auto) (NEGATIVE) /LPF Urine Mucus (Auto) (NEGATIVE) /HPF Urine Glucose (NEGATIVE) mg/dL Radiology Exams: Radiology Procedures Category Date Time Status ABDOMEN AND PELVIS W/0 CONTRAS [CT] Stat Exams 10/29/18 22:47 Completed Assessment/Plan (1) Large bowel obstruction Current Visit: Yes Status: Acute Assessment & Plan: POD 1 sigmoid colectomy with ostomy following with Dr. Dary rojas in place with minimal output ostomy with brown stool on cefoxitin and flagyl lovenox to start today for dvt ppx npo diet per surgery Code(s): K56.609 - UNSP INTESTNL OBST, UNSP TO PARTIAL VERSUS COMPLETE OBST (2) Pneumonia Current Visit: Yes Status: Acute Code(s): J18.9 - PNEUMONIA, UNSPECIFIED ORGANISM (3) Essential hypertension Current Visit: Yes Status: Chronic Code(s): I10 - ESSENTIAL (PRIMARY) HYPERTENSION (4) COPD (chronic obstructive pulmonary disease) Current Visit: Yes Status: Chronic (5) Peripheral arterial disease Current Visit: Yes Status: Acute Code(s): I73.9 - PERIPHERAL VASCULAR DISEASE, UNSPECIFIED
[2018-10-31] MEDS: Dextrose 5%-NS IV Solution 1000 ML 1,000 ML IV SCH ×2 (09:51→22:03)
[2018-10-31] MEDS: Coreg 6.25 MG PO SCH ×2 (09:52→22:03)
[2018-10-31] MEDS ORDERED: DIPRIVAN 200 MG/20 ML IV ONE (10:21)
[2018-10-31] MEDS ORDERED: LIDOCAINE HCL 2% 100 MG/5 ML IJ ONE (10:21)
[2018-10-31] MEDS ORDERED: Zofran 4 MG/2 ML VIAL IV ONE (10:21)
[2018-10-31] MEDS ORDERED: Ephedrine Sulfate 50 MG/ML IV ONE (10:21)
[2018-10-31] MEDS ORDERED: PHENYLEPHRINE HCL IV ONE (10:21)
[2018-10-31] MEDS ORDERED: Zemuron 100 MG/10 ML IV ONE (10:21)
[2018-10-31] MEDS ORDERED: Decadron 4 MG INJ IV ONE (10:21)
[2018-10-31] MEDS ORDERED: Quelicin Fliptop 200 MG/10 ML IV ONE (10:21)
[2018-10-31] MEDS ORDERED: BRIDION 200MG/2ML IV ONE (10:21)
[2018-10-31] MEDS ORDERED: Naropin 0.5% 30 ML VIAL IJ ONE (10:21)
[2018-10-31] MEDS ORDERED: TORAdol 30 mg Injection IJ ONE (10:21)
[2018-10-31] MEDS ORDERED: SUBLIMAZE 100 MCG/2 ML IV ONE (10:26)
[2018-10-31] MEDS ORDERED: DILAUDID 2 MG INJECTION IV ONE (10:26)
--- NOTE | 2018-10-31 10:50 | CONS ---
CONSULT DATE: 10/30/2018 HISTORY: A 78 year-old female who has two week history of some left lower quadrant aches. She was scheduled to have elective colonoscopy as she has not had one for a while. She had increased pain and vomiting, no bowel movements. She came into the emergency department. It was felt she had a large bowel obstruction and she was admitted last night. She is seen this morning and was still not passing stool. It was felt that she warranted exploratory laparotomy possible resection, probable ostomy. She has some prior history of some lung cancer. She had bronchoscopy by Dr. Catalan a few weeks ago who told her that her lung biopsies were not cancer. PAST MEDICAL HISTORY: Peripheral vascular disease. Endovascular procedure. Whether she had a leak or something and having issues with one kidney does not work and one kidney is only 36% according to the patient but anyway did endovascular procedure and apparently had a leak from an aneurysm and had aortobifemoral per Dr. Greer from what it sounds like back in 2013. Otherwise she has had some hypercholesterolemia, high cholesterol, chronic obstructive pulmonary disease, lung cancer, history of pneumonia in the past, osteoarthritis, renal failure, diverticular disease in the past, not sure how long ago was her last colonoscopy. PAST SURGICAL HISTORY: Aortobifemoral in the past. Colonoscopy. Skin cancers removed. She had stents in the legs in the past. HOME MEDICATIONS: Carvedilol hydrochlorothiazide, ezetimibe, rosuvastatin, calcium, Crestor. ALLERGIES: IV CONTRAST. SULFA. PENICILLIN. FAMILY HISTORY: Some cancer in the family. SOCIAL HISTORY: Former smoker. No alcohol abuse. REVIEW OF SYSTEMS: Twelve systems reviewed, pertinent for multiple medical problems as noted above. Negative or noncontributory as above and per preadmission questionnaire. PHYSICAL EXAMINATION: Afebrile. Vital signs stable. This morning she is 98F, pulse 85, blood pressure 114/55. GENERAL: A chronically ill female in acute distress. HEENT: Sclera nonicteric. NECK: No JVD. CHEST: Equal excursion, nonlabored breathing. CVS: Regular rate and rhythm. ABDOMEN: Soft. She has some distention, some tenderness over left lower quadrant. No peritoneal signs. EXTREMITIES: Trace edema. NEURO: Alert, moving extremities grossly symmetrically. LAB DATA AND TESTS: CT scan showed distended colon in the mid sigmoid with decompressed colon and rectum. IMPRESSION: Large bowel obstruction. No stool coming through after bowel prep. I feel she is obstructed. Whether this is related to stricture from chronic diverticular disease versus neoplasia, malignancy or other etiology is unclear. Either way I feel she will benefit from exploratory laparotomy possible partial colectomy or bowel resection, probable ostomy, general risk of anesthesia, deep venous thrombosis, pulmonary embolism or pneumonia. Risk of worsening renal insufficiency possibly requiring other procedures or treatment or needing transfer. Risk of wound complications, hernia or dehiscence or infection, risk of adhesion or scar formation or obstruction. Risk of bowel, bladder, blood vessel or ureter issues or injury. Risk of either stump closure, leak or fistula abscess formation, risk of stomal complications, necrosis, retractions, herniation possibly requiring other procedure revision, general risk of anesthesia, deep venous thrombosis, pulmonary embolism, pneumonia. Risk of worsening renal insufficiency. Risk of cardiopulmonary event given her comorbidities but not limited to. She understands all the above but not limited to, will proceed with exploratory laparotomy possible partial colectomy or bowel resection probable ostomy when OR time available.
[2018-10-31] MEDS ORDERED: PHARMACY DOSING REQUEST MC ONE (11:27)
[2018-10-31] MEDS: Merrem 1 GM 1 G in Sodium Chloride 100ML MINI-BAG PLUS 100 ML IV SCH ×2 (13:16→22:47)
[2018-10-31] MEDS: ZOCOR 20MG PO SCH (22:04)
[2018-11-01] MEDS: FLAGYL 500 MG IVPB 500 MG/100 ML BAG IV SCH ×3 (05:20→22:01)
[2018-11-01 05:54] LABS: Hemoglobin 7.9 gm/dl (12.0-16.0); Mean Cell Volume 93.6 fl (78-100); Mean Corpuscular Hgb Concent. 31.6 g/dl (32-36); Mean Platelet Volume 11.3 fl (6-9.5); Platelet Count 166 K/mm3 (150-450); Red Blood Count 2.67 M/mm3 (4.1-5.4); Red Cell Distribution Width 14.9 % (11.5-14.0); White Blood Count 18.6 K/mm3 (4.0-10.5)
[2018-11-01 06:34] LABS: ALBUMIN 2.3 g/dL (3.5-5.0); ALKALINE PHOSPHATASE 60 U/L (38-126); ANION GAP 9.2 MEQ/L (5-15); BLOOD UREA NITROGEN 22 mg/dL (7-17); CHLORIDE 108 mmol/L (98-107); Calcium 8.2 mg/dL (8.4-10.2); Carbon Dioxide 25 mmol/L (22-30); Creatinine 1 0.88 mg/dL (0.52-1.04); Glucose 131 mg/dL (74-106); Potassium 3.7 mmol/L (3.5-5.1); SGOT/AST 19 U/L (14-36); SGPT/ALT 10 U/L (0-35); SODIUM 139 mmol/L (137-145); Total Protein 4.7 g/dL (6.3-8.2)
[2018-11-01 06:42] LABS: Mean Corpuscular Hemoglobin 29.5 pg (26-32)
--- NOTE | 2018-11-01 08:34 | PCM.NOTE ---
Date and Time: 11/01/18822 Subjective Assessment: she is having pain with flexing of her left hip she was able to walk on her leg without it giving way yesterday she can flex and extend the hip, knee and ankle without definitive weakness but flexion of the hip results in increaing pain on the left she denies numbness to the left leg. Objective Exam General Appearance: no apparent distress Neurologic Exam: alert, oriented x 3, cooperative Skin Exam: warm, dry Ears, Nose, Throat Exam: moist mucous membranes Neck Exam: non-tender, supple Respiratory Exam: normal breath sounds, lungs clear, No crackles/rales Cardiovascular Exam: regular rate/rhythm, normal peripheral pulses, No edema Gastrointestinal/Abdomen Exam: soft, normal bowel sounds, tenderness, other (2 TORRIE draines left lower quadrant ostomy), No distention, No guarding Extremity Exam: normal inspection, other (left leg painful flexion of the hip but muscles firing adequately it appears at thist aly but limited by pain 5/5 strength ankle and knee flexion and extension) OBJECTIVE DATA Vital Signs: Vital Signs - 24 hr Temp Pulse Resp BP Pulse Ox 11/01/18 07:47 98.4 F 81 18 101/48 94 L 11/01/18 07:40 75 16 95 11/01/18 04:00 98.1 F 77 16 91/42 96 11/01/18 00:00 98.3 F 79 16 100/46 96 10/31/18 21:20 99 10/31/18 20:00 97.6 F 75 18 110/51 95 10/31/18 19:22 79 21 99 10/31/18 16:00 98.4 F 77 18 101/44 92 L 10/31/18 12:00 97.4 F 69 16 95/46 95 Oxygen-Last 24 hours O2 Percentage 2 Liters = 28% O2 Percentage 2 Liters = 28% O2 Percentage 2 Liters = 28% O2 Percentage 2 Liters = 28% O2 Percentage 2 Liters = 28% O2 Percentage 2 Liters = 28% Pain Assessment - Last Documented Pain Intensity 3 Pain Scale Used [facility] Intake and Output: Intake & Output 10/29/18 10/30/18 10/31/18 11/01/18 11:59 11:59 11:59 11:59 Intake Total 0 1098 2768 Output Total 150 2765 560 Balance -150 -1667 2208 Weight 59.5 kg 59.5 kg 59.5 kg Lab Results: Lab Results-Last 24 Hours 11/01/18 11/01/18 Range/Units 05:18 05:18 WBC 18.6 H (4.0-10.5) K/mm3 RBC 2.67 L (4.1-5.4) M/mm3 Hgb 7.9 L (12.0-16.0) gm/dl Hct 25.0 L (35-47) % MCV 93.6 (78-100) fl MCH 29.5 (26-32) pg MCHC 31.6 L (32-36) g/dl RDW 14.9 H (11.5-14.0) % Plt Count 166 (150-450) K/mm3 MPV 11.3 H (6-9.5) fl Sodium 139 (137-145) mmol/L Potassium 3.7 (3.5-5.1) mmol/L Chloride 108 H (98-107) mmol/L Carbon Dioxide 25 (22-30) mmol/L Anion Gap 9.2 (5-15) MEQ/L BUN 22 H (7-17) mg/dL Creatinine 0.88 (0.52-1.04) mg/dL Estimated GFR > 60.0 ML/MIN Glucose 131 H (74-106) mg/dL Calcium 8.2 L (8.4-10.2) mg/dL Total Bilirubin 0.30 (0.2-1.3) mg/dL AST 19 (14-36) U/L ALT 10 (0-35) U/L Alkaline Phosphatase 60 (38-126) U/L Serum Total Protein 4.7 L (6.3-8.2) g/dL Albumin 2.3 L (3.5-5.0) g/dL Assessment/Plan (1) Large bowel obstruction Current Visit: Yes Status: Acute Assessment & Plan: pod#2 on full liquid diet tolerating well anemia worse this am add protonix iv no nausea or vomiting brown stool no definitive source of bleeding wbc still elevated on meropenem and flagyl per surgery diet per surgery work on increased mobility today up in chair as tolerated Code(s): K56.609 - UNSP INTESTNL OBST, UNSP TO PARTIAL VERSUS COMPLETE OBST (2) Pneumonia Current Visit: Yes Status: Acute Code(s): J18.9 - PNEUMONIA, UNSPECIFIED ORGANISM (3) Essential hypertension Current Visit: Yes Status: Chronic Code(s): I10 - ESSENTIAL (PRIMARY) HYPERTENSION (4) COPD (chronic obstructive pulmonary disease) Current Visit: Yes Status: Chronic (5) Peripheral arterial disease Current Visit: Yes Status: Acute Code(s): I73.9 - PERIPHERAL VASCULAR DISEASE, UNSPECIFIED (6) Anemia Current Visit: Yes Status: Acute Code(s): D64.9 - ANEMIA, UNSPECIFIED
[2018-11-01] MEDS: Coreg 6.25 MG PO SCH ×2 (09:28→22:01)
[2018-11-01] MEDS: Merrem 1 GM 1 G in Sodium Chloride 100ML MINI-BAG PLUS 100 ML IV SCH ×2 (09:28→22:01)
[2018-11-01] MEDS: PROTONIX 40 MG IV IV SCH (09:28)
[2018-11-01] MEDS: Dextrose 5%-NS IV Solution 1000 ML 1,000 ML IV SCH (11:40)
[2018-11-01] MEDS: Zofran 4 MG/2 ML VIAL IV PRN (12:34)
[2018-11-01] MEDS: ENOXAPARIN SODIUM SQ SCH (18:58)
[2018-11-01] MEDS: PATIENT OWN MEDICATION PO SCH (22:02)
[2018-11-02 06:21] LABS: ANION GAP 8.8 MEQ/L (5-15); BLOOD UREA NITROGEN 18 mg/dL (7-17); CHLORIDE 107 mmol/L (98-107); Calcium 8.8 mg/dL (8.4-10.2); Carbon Dioxide 29 mmol/L (22-30); Creatinine 1 0.95 mg/dL (0.52-1.04); Glucose 112 mg/dL (74-106); Potassium 4.1 mmol/L (3.5-5.1); SODIUM 140 mmol/L (137-145)
[2018-11-02 06:29] LABS: Hematocrit 28.7 % (35-47); Hemoglobin 8.9 gm/dl (12.0-16.0); Mean Cell Volume 94.7 fl (78-100); Mean Platelet Volume 11.5 fl (6-9.5); Platelet Count 200 K/mm3 (150-450); Red Blood Count 3.03 M/mm3 (4.1-5.4); White Blood Count 14.9 K/mm3 (4.0-10.5)
[2018-11-02 06:30] LABS: Mean Corpuscular Hemoglobin 29.3 pg (26-32)
[2018-11-02] MEDS: FLAGYL 500 MG IVPB 500 MG/100 ML BAG IV SCH ×3 (06:32→21:19)
[2018-11-02] MEDS: PROTONIX 40 MG IV IV SCH (08:22)
[2018-11-02] MEDS: Dextrose 5%-NS IV Solution 1000 ML 1,000 ML IV SCH ×2 (08:22→09:49)
[2018-11-02] MEDS ORDERED: BENADRYL 25 MG CAPSULE PO PRN (08:33)
--- NOTE | 2018-11-02 08:33 | PCM.NOTE ---
Date and Time: 11/02/18832 Subjective Assessment: increased serous drainage from the NEYMAR drains was up in the chair well yesterday not up moving much having some difficulty with managing her colostomy thus far the pain is a little worse today in her left lower quadrant using the morphine electrician rectifier maintenance more now she did tolerate full liquid well without vomiting she doesn't like the taste of the food however. she denies chest pain or shortness of breath. she refused to have the Watt removed yesterday. Objective Exam General Appearance: no apparent distress Neurologic Exam: alert, oriented x 3, cooperative Skin Exam: warm, dry Ears, Nose, Throat Exam: moist mucous membranes Neck Exam: non-tender, supple Respiratory Exam: lungs clear, No respiratory distress Cardiovascular Exam: regular rate/rhythm, normal heart sounds Gastrointestinal/Abdomen Exam: soft, normal bowel sounds, tenderness, other ( left lower quadrant colostomy 2 neymar draines with pink serous drainage in the right and serous drainage in the left watt in place with dark yellow urine), No distention Extremity Exam: normal inspection, No calf tenderness, No pedal edema OBJECTIVE DATA Vital Signs: Vital Signs - 24 hr Temp Pulse Resp BP Pulse Ox 11/02/18 08:00 98.9 F 83 20 121/56 97 11/02/18 07:50 80 16 97 11/02/18 06:42 97 11/02/18 04:00 99.0 F 86 16 128/60 97 11/02/18 00:00 99.3 F 88 16 120/55 97 11/01/18 20:00 98.8 F 76 16 105/49 98 11/01/18 16:00 18 98 11/01/18 15:38 97.8 F 86 18 95/50 11/01/18 13:02 98 11/01/18 12:00 98.0 F 74 20 118/55 94 L 11/01/18 08:35 93 L Oxygen-Last 24 hours O2 Percentage 2 Liters = 28% O2 Percentage 2 Liters = 28% O2 Percentage 2 Liters = 28% O2 Percentage 2 Liters = 28% O2 Percentage 2 Liters = 28% Pain Assessment - Last Documented Pain Intensity 0 Pain Scale Used FLACC Intake and Output: Intake & Output 10/30/18 10/31/18 11/01/18 11/02/18 11:59 11:59 11:59 11:59 Intake Total 0 1098 2768 2414 Output Total 150 2765 560 780 Balance -150 -1667 2208 1634 Weight 59.5 kg 59.5 kg 59.5 kg Lab Results: Lab Results-Last 24 Hours 11/02/18 11/02/18 Range/Units 05:07 05:07 WBC 14.9 H (4.0-10.5) K/mm3 RBC 3.03 L (4.1-5.4) M/mm3 Hgb 8.9 L (12.0-16.0) gm/dl Hct 28.7 L (35-47) % MCV 94.7 (78-100) fl MCH 29.3 (26-32) pg MCHC 31.0 L (32-36) g/dl RDW 15.0 H (11.5-14.0) % Plt Count 200 (150-450) K/mm3 MPV 11.5 H (6-9.5) fl Sodium 140 (137-145) mmol/L Potassium 4.1 (3.5-5.1) mmol/L Chloride 107 (98-107) mmol/L Carbon Dioxide 29 (22-30) mmol/L Anion Gap 8.8 (5-15) MEQ/L BUN 18 H (7-17) mg/dL Creatinine 0.95 (0.52-1.04) mg/dL Estimated GFR > 60.0 ML/MIN Glucose 112 H (74-106) mg/dL Calcium 8.8 (8.4-10.2) mg/dL Multi-Disciplinary Progress Notes: Multi-Disciplinary Progress Notes 11/01/18 12:00 (created 11/01/18 15:45) Case Management Note by Francie Trujillo PT REPORTS NOT FEELING WELL TODAY. APPREHENSIVE ABOUT BEING ABLE TO CARE FOR OSTOMY ON DISCHARGE. GRANDDAUGHTER HERE AND REPORTS THAT SHE CAN ASSIST IN CARE OF OSTOMY. PT REPORTS THAT SHE IS GOING TO TALK WITH ABOUT MAYBE GOING FOR A REHAB STAY POST DISCHARGE. REPORTS THAT SHE HAS BEEN TO REHAB BEFORE AT [place]. DISCUSSED [facility], DISCUSSED SWING BED, AND ALSO, DISCUSSED HOME WITH [facility] FOR ADDNL SUPPORT. DENIES ADDNL NEEDS AT PRESENT TIME. WILL CONTINUE TO FOLLOW. Initialized on 11/01/18 15:45 - END OF NOTE Assessment/Plan (1) Large bowel obstruction Current Visit: Yes Status: Acute Onset Date: ~10/30/18 Assessment & Plan: pod #3 advancing diet well via surgery increased drainage from neymar draines mgmt by surgery i discussed importance of removing her watt to prevent hospital aquired infections and she will consider letting us take it out later today. I discussed importance of the lovenox for preventing dvt / pe after a surgery when she is less mobile but she refuses because she says her kidney dr and dr. papito sherman said she can never take a blood thinner because her blood is too thin. i discussed in this case for this situation monitorred in the hospital it would be safe but she refuses the lovenox. she continues on meropenem and flagyl with the removal of the perforated phlegmon in surgery and the pneumonia Code(s): K56.609 - UNSP INTESTNL OBST, UNSP TO PARTIAL VERSUS COMPLETE OBST (2) Pneumonia Current Visit: Yes Status: Acute Onset Date: ~10/30/18 Code(s): J18.9 - PNEUMONIA, UNSPECIFIED ORGANISM (3) Essential hypertension Current Visit: Yes Status: Chronic Code(s): I10 - ESSENTIAL (PRIMARY) HYPERTENSION (4) COPD (chronic obstructive pulmonary disease) Current Visit: Yes Status: Chronic (5) Peripheral arterial disease Current Visit: Yes Status: Chronic Code(s): I73.9 - PERIPHERAL VASCULAR DISEASE, UNSPECIFIED (6) Anemia Current Visit: Yes Status: Resolved Code(s): D64.9 - ANEMIA, UNSPECIFIED (7) Intra-abdominal abscess Current Visit: Yes Status: Resolved Code(s): K65.1 - PERITONEAL ABSCESS (8) Perforated viscus Current Visit: Yes Status: Resolved Code(s): R19.8 - OTH SYMPTOMS AND SIGNS INVOLVING THE DGSTV SYS AND ABDOMEN
[2018-11-02] MEDS: Zofran 4 MG/2 ML VIAL IV PRN ×2 (09:41→18:21)
[2018-11-02] MEDS: Merrem 1 GM 1 G in Sodium Chloride 100ML MINI-BAG PLUS 100 ML IV SCH ×2 (09:45→21:19)
[2018-11-02] MEDS: Coreg 6.25 MG PO SCH ×2 (10:00→21:19)
[2018-11-02] MEDS: Morphine PCA 1 MG/ML 30 ML IV PRN (10:34)
[2018-11-02] MEDS: ENOXAPARIN SODIUM SQ SCH (14:52)
[2018-11-02] MEDS: PATIENT OWN MEDICATION PO SCH (21:20)
[2018-11-03] MEDS: Dextrose 5%-NS IV Solution 1000 ML 1,000 ML IV SCH (06:34)
[2018-11-03] MEDS: FLAGYL 500 MG IVPB 500 MG/100 ML BAG IV SCH ×3 (06:35→22:26)
[2018-11-03 09:41] LABS: Hematocrit 28.4 % (35-47); Hemoglobin 8.9 gm/dl (12.0-16.0); Mean Corpuscular Hgb Concent. 31.3 g/dl (32-36); Mean Platelet Volume 10.4 fl (6-9.5); Platelet Count 219 K/mm3 (150-450); Red Blood Count 3.02 M/mm3 (4.1-5.4); Red Cell Distribution Width 14.9 % (11.5-14.0); White Blood Count 14.2 K/mm3 (4.0-10.5)
[2018-11-03] MEDS: Merrem 1 GM 1 G in Sodium Chloride 100ML MINI-BAG PLUS 100 ML IV SCH ×2 (09:41→21:14)
[2018-11-03 09:42] LABS: Mean Corpuscular Hemoglobin 29.4 pg (26-32)
[2018-11-03] MEDS: Coreg 6.25 MG PO SCH ×2 (09:42→21:14)
[2018-11-03] MEDS: PROTONIX 40 MG IV IV SCH (09:42)
[2018-11-03 10:00] LABS: ANION GAP 6.5 MEQ/L (5-15); BLOOD UREA NITROGEN 15 mg/dL (7-17); CHLORIDE 107 mmol/L (98-107); Calcium 8.5 mg/dL (8.4-10.2); Carbon Dioxide 29 mmol/L (22-30); Glucose 119 mg/dL (74-106); Potassium 3.6 mmol/L (3.5-5.1); SODIUM 139 mmol/L (137-145)
[2018-11-03] MEDS: ENOXAPARIN SODIUM SQ SCH (13:40)
[2018-11-03] MEDS ORDERED: Klor Con 10 MEQ PO ONE (20:00)
[2018-11-03] MEDS ORDERED: LASIX 20 MG PO ONE (20:00)
[2018-11-03] MEDS ORDERED: Sodium Chloride 0.9% 500 ML 500 ML IV SCH (20:30)
[2018-11-03] MEDS: PATIENT OWN MEDICATION PO SCH (21:15)
[2018-11-04] MEDS ORDERED: Dextrose 5%-NS IV Solution 1000 ML 1,000 ML IV SCH (02:30)
[2018-11-04] MEDS: FLAGYL 500 MG IVPB 500 MG/100 ML BAG IV SCH ×3 (06:13→22:23)
[2018-11-04 06:45] LABS: ALBUMIN 2.3 g/dL (3.5-5.0); ALKALINE PHOSPHATASE 63 U/L (38-126); ANION GAP 5.5 MEQ/L (5-15); BLOOD UREA NITROGEN 12 mg/dL (7-17); CHLORIDE 105 mmol/L (98-107); Calcium 8.5 mg/dL (8.4-10.2); Carbon Dioxide 31 mmol/L (22-30); Creatinine 1 0.86 mg/dL (0.52-1.04); Glucose 101 mg/dL (74-106); Potassium 3.7 mmol/L (3.5-5.1); SGOT/AST 19 U/L (14-36); SGPT/ALT 10 U/L (0-35); SODIUM 138 mmol/L (137-145); Total Protein 4.7 g/dL (6.3-8.2)
[2018-11-04] MEDS: PROTONIX 40 MG IV IV SCH (09:00)
[2018-11-04] MEDS: Merrem 1 GM 1 G in Sodium Chloride 100ML MINI-BAG PLUS 100 ML IV SCH ×2 (09:03→23:32)
[2018-11-04] MEDS: Zofran 4 MG/2 ML VIAL IV PRN ×2 (09:08→14:41)
[2018-11-04] MEDS: Coreg 6.25 MG PO SCH ×2 (09:36→22:23)
--- NOTE | 2018-11-04 11:32 | PCM.NOTE ---
Date and Time: 11/03/18831 Subjective Assessment: she says the food her is nasty and that is why she doesn't want to eat. She has her bringing her [employer] later and she says she will eat that. she has been using the massage therapist she says it hurts to move and hurts to move her left hip. she denies chest pain or shortness of breath. Objective Exam General Appearance: no apparent distress, alert Neurologic Exam: alert, oriented x 3, cooperative, depressed mood/affect, other (she is able to fire the muscles in the left leg but stops when due to pain. when trying to move) Skin Exam: normal color, warm, dry Eye Exam: PERRL, EOMI, eyes nml inspection Ears, Nose, Throat Exam: normal ENT inspection, pharynx normal, moist mucous membranes Neck Exam: normal inspection, non-tender, supple, full range of motion Respiratory Exam: normal breath sounds, lungs clear, No respiratory distress Cardiovascular Exam: regular rate/rhythm, normal heart sounds Gastrointestinal/Abdomen Exam: soft, normal bowel sounds, tenderness (mild diffuse), other (watt d/c yesterday, 2 neymar drain with clear yellow drainage ostomy with brown stool), No mass Extremity Exam: normal inspection, normal range of motion Pelvic Exam: deferred Rectal Exam: deferred OBJECTIVE DATA Vital Signs: Vital Signs - 24 hr Temp Pulse Resp BP Pulse Ox 11/04/18 10:12 80 18 98 11/04/18 07:49 99.1 F 83 18 90/40 98 11/04/18 06:34 97 11/04/18 06:00 97 11/04/18 04:44 98.6 F 78 16 96/54 97 11/04/18 02:34 99 11/04/18 02:25 97/51 11/04/18 02:00 99 11/04/18 00:15 99.2 F 75 16 94/54 99 11/03/18 22:34 100 11/03/18 22:00 100 11/03/18 20:00 98.1 F 71 20 146/64 100 11/03/18 17:42 98 11/03/18 16:00 98 F 75 18 105/50 98 11/03/18 12:00 98.7 F 75 18 112/55 98 Oxygen-Last 24 hours O2 Percentage 2 Liters = 28% O2 Percentage 2 Liters = 28% O2 Percentage 2 Liters = 28% O2 Percentage 2 Liters = 28% O2 Percentage 2 Liters = 28% O2 Percentage 2 Liters = 28% Pain Assessment - Last Documented Pain Intensity 2 Pain Scale Used 0-10 Pain Scale Intake and Output: Intake & Output 11/01/18 11/02/18 11/03/18 11/04/18 11:59 11:59 11:59 11:59 Intake Total 2768 2474 1769 2249 Output Total 867 357 2152 1145 Balance 2208 8136 327 0677 Weight 59.5 kg Lab Results: Lab Results-Last 24 Hours 10/30/18 11/04/18 Range/Units 16:45 05:20 Sodium 138 (137-145) mmol/L Potassium 3.7 (3.5-5.1) mmol/L Chloride 105 (98-107) mmol/L Carbon Dioxide 31 H (22-30) mmol/L Anion Gap 5.5 (5-15) MEQ/L BUN 12 (7-17) mg/dL Creatinine 0.86 (0.52-1.04) mg/dL Estimated GFR > 60.0 ML/MIN Glucose 101 (74-106) mg/dL Calcium 8.5 (8.4-10.2) mg/dL Total Bilirubin 0.40 (0.2-1.3) mg/dL AST 19 (14-36) U/L ALT 10 (0-35) U/L Alkaline Phosphatase 63 (38-126) U/L Serum Total Protein 4.7 L (6.3-8.2) g/dL Albumin 2.3 L (3.5-5.0) g/dL Surg PTH Diagnosis See Note H Multi-Disciplinary Progress Notes: Multi-Disciplinary Progress Notes 11/03/18 11:43 Case Management Note by Chana Castillo S/W PATIENT AND AGAIN REGARDING SWING VS REHAB. IF PATIENT DECIDES TO GO TO A FACILITY, HER FACILITY OF CHOICE WOULD BE [place]. S/W AJIT AT [place]. NOTIFIED OF POSSIBLE FUTURE REFERRAL. SENT [employer] SO THEY COULD START THE INSURANCE PROCESS BEFORE THE HOLIDAYS. HE VERIFIED UNDERSTANDING. WILL NEED FULL REFERRAL SENT CLOSER TO TIME OF DISCHARGE Initialized on 11/03/18 11:43 - END OF NOTE Assessment/Plan (1) Large bowel obstruction Current Visit: Yes Status: Acute Onset Date: ~10/30/18 Assessment & Plan: pod 4 she has not increased her intake much encouraged increased po intake he urine output has been poor since d/c catheter check post void residual and re-anchor watt for >200 mL continues on antibiotic day 02/25 for the extensive abscess surgically resected Code(s): K56.609 - UNSP INTESTNL OBST, UNSP TO PARTIAL VERSUS COMPLETE OBST (2) Pneumonia Current Visit: Yes Status: Acute Onset Date: ~10/30/18 Code(s): J18.9 - PNEUMONIA, UNSPECIFIED ORGANISM (3) Essential hypertension Current Visit: Yes Status: Chronic Code(s): I10 - ESSENTIAL (PRIMARY) HYPERTENSION (4) COPD (chronic obstructive pulmonary disease) Current Visit: Yes Status: Chronic (5) Peripheral arterial disease Current Visit: Yes Status: Chronic Code(s): I73.9 - PERIPHERAL VASCULAR DISEASE, UNSPECIFIED (6) Anemia Current Visit: Yes Status: Resolved Code(s): D64.9 - ANEMIA, UNSPECIFIED (7) Intra-abdominal abscess Current Visit: Yes Status: Resolved Code(s): K65.1 - PERITONEAL ABSCESS (8) Perforated viscus Current Visit: Yes Status: Resolved Code(s): R19.8 - OTH SYMPTOMS AND SIGNS INVOLVING THE DGSTV SYS AND ABDOMEN
--- NOTE | 2018-11-04 11:32 | PCM.NOTE ---
Date and Time: 11/04/18 1132 OBJECTIVE DATA Vital Signs: Vital Signs - 24 hr Temp Pulse Resp BP Pulse Ox 11/04/18 10:12 80 18 98 11/04/18 07:49 99.1 F 83 18 90/40 98 11/04/18 06:34 97 11/04/18 06:00 97 11/04/18 04:44 98.6 F 78 16 96/54 97 11/04/18 02:34 99 11/04/18 02:25 97/51 11/04/18 02:00 99 11/04/18 00:15 99.2 F 75 16 94/54 99 11/03/18 22:34 100 11/03/18 22:00 100 11/03/18 20:00 98.1 F 71 20 146/64 100 11/03/18 17:42 98 11/03/18 16:00 98 F 75 18 105/50 98 11/03/18 12:00 98.7 F 75 18 112/55 98 Oxygen-Last 24 hours O2 Percentage 2 Liters = 28% O2 Percentage 2 Liters = 28% O2 Percentage 2 Liters = 28% O2 Percentage 2 Liters = 28% O2 Percentage 2 Liters = 28% O2 Percentage 2 Liters = 28% Pain Assessment - Last Documented Pain Intensity 2 Pain Scale Used 0-10 Pain Scale Intake and Output: Intake & Output 11/01/18 11/02/18 11/03/18 11/04/18 11:59 11:59 11:59 11:59 Intake Total 2768 2474 1769 2249 Output Total 224 433 3694 1145 Balance 2208 0263 402 6900 Weight 59.5 kg Lab Results: Lab Results-Last 24 Hours 10/30/18 11/04/18 Range/Units 16:45 05:20 Sodium 138 (137-145) mmol/L Potassium 3.7 (3.5-5.1) mmol/L Chloride 105 (98-107) mmol/L Carbon Dioxide 31 H (22-30) mmol/L Anion Gap 5.5 (5-15) MEQ/L BUN 12 (7-17) mg/dL Creatinine 0.86 (0.52-1.04) mg/dL Estimated GFR > 60.0 ML/MIN Glucose 101 (74-106) mg/dL Calcium 8.5 (8.4-10.2) mg/dL Total Bilirubin 0.40 (0.2-1.3) mg/dL AST 19 (14-36) U/L ALT 10 (0-35) U/L Alkaline Phosphatase 63 (38-126) U/L Serum Total Protein 4.7 L (6.3-8.2) g/dL Albumin 2.3 L (3.5-5.0) g/dL Surg PTH Diagnosis See Note H Multi-Disciplinary Progress Notes: Multi-Disciplinary Progress Notes 11/03/18 11:43 Case Management Note by Chana Castillo S/W PATIENT AND AGAIN REGARDING SWING VS REHAB. IF PATIENT DECIDES TO GO TO A FACILITY, HER FACILITY OF CHOICE WOULD BE [place]. S/W AJIT AT [place]. NOTIFIED OF POSSIBLE FUTURE REFERRAL. SENT [employer] SO THEY COULD START THE INSURANCE PROCESS BEFORE THE HOLIDAYS. HE VERIFIED UNDERSTANDING. WILL NEED FULL REFERRAL SENT CLOSER TO TIME OF DISCHARGE Initialized on 11/03/18 11:43 - END OF NOTE Assessment/Plan (1) Large bowel obstruction Current Visit: Yes Status: Acute Onset Date: ~10/30/18 Code(s): K56.609 - UNSP INTESTNL OBST, UNSP TO PARTIAL VERSUS COMPLETE OBST (2) Pneumonia Current Visit: Yes Status: Acute Onset Date: ~10/30/18 Code(s): J18.9 - PNEUMONIA, UNSPECIFIED ORGANISM (3) Essential hypertension Current Visit: Yes Status: Chronic Code(s): I10 - ESSENTIAL (PRIMARY) HYPERTENSION (4) COPD (chronic obstructive pulmonary disease) Current Visit: Yes Status: Chronic (5) Peripheral arterial disease Current Visit: Yes Status: Chronic Code(s): I73.9 - PERIPHERAL VASCULAR DISEASE, UNSPECIFIED (6) Anemia Current Visit: Yes Status: Resolved Code(s): D64.9 - ANEMIA, UNSPECIFIED (7) Intra-abdominal abscess Current Visit: Yes Status: Resolved Code(s): K65.1 - PERITONEAL ABSCESS (8) Perforated viscus Current Visit: Yes Status: Resolved Code(s): R19.8 - OTH SYMPTOMS AND SIGNS INVOLVING THE DGSTV SYS AND ABDOMEN
[2018-11-04] MEDS: ENOXAPARIN SODIUM SQ SCH (14:07)
[2018-11-04] MEDS: PERCOCET TABLET 5/325MG PO PRN (14:45)
--- NOTE | 2018-11-04 15:23 | PCM.NOTE ---
Date and Time: 11/04/18 1118 She thinks she ate a little more today but still just a few bites of her breakfast she is not drinking much she was complaining of swleling in her hands and feet last night and received 20 mg of po lasix with increased urine output and improvement in her swelling. She did not walk yesterday but was up in gurinder chair fo r3 hours still having great deal of pain when up in her abdomen but overall she states the pain is improving she continues to feel nauseated without vomiting. - Review of Systems Constitutional: No Fever, No Chills Respiratory: No Cough Cardiac: No Chest Pain Abdominal/Gastrointestinal: Abdominal Pain, Nausea, No Vomiting Objective Exam General Appearance: no apparent distress, alert Neurologic Exam: depressed mood/affect Skin Exam: warm, dry Eye Exam: No scleral icterus, No pale conjunctivae Ears, Nose, Throat Exam: moist mucous membranes Neck Exam: non-tender, supple Respiratory Exam: normal breath sounds, lungs clear Cardiovascular Exam: regular rate/rhythm, normal heart sounds, No edema Gastrointestinal/Abdomen Exam: soft, normal bowel sounds, tenderness (mild diffuse. 2 neymar draines with clear yellow drainage ostomy with brown stool. Tanner in place with dark yellow urine.) Extremity Exam: normal inspection, No calf tenderness OBJECTIVE DATA Vital Signs: Vital Signs - 24 hr Temp Pulse Resp BP Pulse Ox 11/04/18 12:00 98.7 F 86 18 94/44 94 L 11/04/18 10:12 80 18 98 11/04/18 07:49 99.1 F 83 18 90/40 98 11/04/18 06:34 97 11/04/18 06:00 97 11/04/18 04:44 98.6 F 78 16 96/54 97 11/04/18 02:34 99 11/04/18 02:25 97/51 11/04/18 02:00 99 11/04/18 00:15 99.2 F 75 16 94/54 99 11/03/18 22:34 100 11/03/18 22:00 100 11/03/18 20:00 98.1 F 71 20 146/64 100 11/03/18 17:42 98 11/03/18 16:00 98 F 75 18 105/50 98 Oxygen-Last 24 hours O2 Percentage 2 Liters = 28% O2 Percentage 2 Liters = 28% O2 Percentage 2 Liters = 28% O2 Percentage 2 Liters = 28% O2 Percentage 2 Liters = 28% O2 Percentage 2 Liters = 28% Pain Assessment - Last Documented Pain Intensity 7 Pain Scale Used 0-10 Pain Scale Intake and Output: Intake & Output 11/02/18 11/03/18 11/04/18 11/05/18 11:59 11:59 11:59 11:59 Intake Total 2474 1769 2249 328 Output Total 955 1450 1145 210 Balance 7270 303 7031 118 Lab Results: Lab Results-Last 24 Hours 11/04/18 Range/Units 05:20 Sodium 138 (137-145) mmol/L Potassium 3.7 (3.5-5.1) mmol/L Chloride 105 (98-107) mmol/L Carbon Dioxide 31 H (22-30) mmol/L Anion Gap 5.5 (5-15) MEQ/L BUN 12 (7-17) mg/dL Creatinine 0.86 (0.52-1.04) mg/dL Estimated GFR > 60.0 ML/MIN Glucose 101 (74-106) mg/dL Calcium 8.5 (8.4-10.2) mg/dL Total Bilirubin 0.40 (0.2-1.3) mg/dL AST 19 (14-36) U/L ALT 10 (0-35) U/L Alkaline Phosphatase 63 (38-126) U/L Serum Total Protein 4.7 L (6.3-8.2) g/dL Albumin 2.3 L (3.5-5.0) g/dL Assessment/Plan (1) Large bowel obstruction Current Visit: Yes Status: Acute Onset Date: ~10/30/18 Assessment & Plan: 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 Foote and Dr. Hui covering currently. Encouraged increase activity as tolerated and encouraged work on ambulation she will need rehabilitation and care home for the iv antibiotics at discharge hopefully tomorrow possible swing bed. Code(s): K56.609 - UNSP INTESTNL OBST, UNSP TO PARTIAL VERSUS COMPLETE OBST (2) Pneumonia Current Visit: Yes Status: Acute Onset Date: ~10/30/18 Code(s): J18.9 - PNEUMONIA, UNSPECIFIED ORGANISM (3) Essential hypertension Current Visit: Yes Status: Chronic Code(s): I10 - ESSENTIAL (PRIMARY) HYPERTENSION (4) COPD (chronic obstructive pulmonary disease) Current Visit: Yes Status: Chronic (5) Peripheral arterial disease Current Visit: Yes Status: Chronic Code(s): I73.9 - PERIPHERAL VASCULAR DISEASE, UNSPECIFIED (6) Anemia Current Visit: Yes Status: Resolved Code(s): D64.9 - ANEMIA, UNSPECIFIED (7) Intra-abdominal abscess Current Visit: Yes Status: Resolved Code(s): K65.1 - PERITONEAL ABSCESS (8) Perforated viscus Current Visit: Yes Status: Resolved Code(s): R19.8 - OTH SYMPTOMS AND SIGNS INVOLVING THE DGSTV SYS AND ABDOMEN
[2018-11-05 06:10] LABS: Hematocrit 26.7 % (35-47); Hemoglobin 8.4 gm/dl (12.0-16.0); Mean Corpuscular Hgb Concent. 31.5 g/dl (32-36); Mean Platelet Volume 10.2 fl (6-9.5); Platelet Count 253 K/mm3 (150-450); Red Blood Count 2.87 M/mm3 (4.1-5.4); Red Cell Distribution Width 14.5 % (11.5-14.0); White Blood Count 11.9 K/mm3 (4.0-10.5)
[2018-11-05 06:25] LABS: ANION GAP 7.9 MEQ/L (5-15); BLOOD UREA NITROGEN 14 mg/dL (7-17); CHLORIDE 101 mmol/L (98-107); Calcium 7.9 mg/dL (8.4-10.2); Carbon Dioxide 29 mmol/L (22-30); Creatinine 1 0.85 mg/dL (0.52-1.04); Glucose 76 mg/dL (74-106); SODIUM 135 mmol/L (137-145)
[2018-11-05 06:26] LABS: Mean Corpuscular Hemoglobin 29.2 pg (26-32)
[2018-11-05] MEDS: FLAGYL 500 MG IVPB 500 MG/100 ML BAG IV SCH ×3 (06:37→21:16)
[2018-11-05] MEDS ORDERED: POTASSIUM CHLORIDE 20 mEq IN WATER 100ML 20 MEQ/100 ML BAG IV SCH (07:00)
[2018-11-05] MEDS ORDERED: Sodium Chloride 0.9% 500 ML 500 ML IV SCH (07:45)
[2018-11-05] MEDS: PROTONIX 40 MG IV IV SCH (08:47)
[2018-11-05] MEDS: POTASSIUM CHLORIDE 20 mEq IN WATER 100ML 20 MEQ/100 ML BAG IV SCH ×2 (08:49→11:37)
[2018-11-05] MEDS: Merrem 1 GM 1 G in Sodium Chloride 100ML MINI-BAG PLUS 100 ML IV SCH ×2 (10:01→22:27)
[2018-11-05] MEDS: Coreg 6.25 MG PO SCH (10:06)
[2018-11-05] MEDS ORDERED: Lactated Ringers 500 ML IV ONE (10:57)
[2018-11-05] MEDS: PERCOCET TABLET 5/325MG PO PRN ×3 (11:19→20:25)
--- NOTE | 2018-11-05 11:22 | PCM.NOTE ---
Date and Time: 11/05/18 1116 OBJECTIVE DATA Vital Signs: Vital Signs - 24 hr Temp Pulse Resp BP Pulse Ox 11/05/18 08:24 88 18 91 L 11/05/18 08:00 97.5 F 85 18 85/46 92 L 11/05/18 04:15 98.5 F 88 16 88/56 95 11/05/18 00:00 98.6 F 84 15 95/45 95 11/04/18 20:00 98.3 F 78 16 81/45 96 11/04/18 16:32 84/52 11/04/18 16:00 98.1 F 78 18 79/52 93 L 11/04/18 12:00 98.7 F 86 18 94/44 94 L Oxygen-Last 24 hours O2 Percentage 2 Liters = 28% Pain Assessment - Last Documented Pain Intensity 3 Pain Scale Used 0-10 Pain Scale Intake and Output: Intake & Output 11/02/18 11/03/18 11/04/18 11/05/18 11:59 11:59 11:59 11:59 Intake Total 2474 1769 2249 810 Output Total 955 1450 1145 1280 Balance 1263 204 9805 -470 Lab Results: Lab Results-Last 24 Hours 11/05/18 11/05/18 Range/Units 05:25 05:25 WBC 11.9 H (4.0-10.5) K/mm3 RBC 2.87 L (4.1-5.4) M/mm3 Hgb 8.4 L (12.0-16.0) gm/dl Hct 26.7 L (35-47) % MCV 93.0 (78-100) fl MCH 29.2 (26-32) pg MCHC 31.5 L (32-36) g/dl RDW 14.5 H (11.5-14.0) % Plt Count 253 (150-450) K/mm3 MPV 10.2 H (6-9.5) fl Sodium 135 L (137-145) mmol/L Potassium 3.0 L (3.5-5.1) mmol/L Chloride 101 (98-107) mmol/L Carbon Dioxide 29 (22-30) mmol/L Anion Gap 7.9 (5-15) MEQ/L BUN 14 (7-17) mg/dL Creatinine 0.85 (0.52-1.04) mg/dL Estimated GFR > 60.0 ML/MIN Glucose 76 (74-106) mg/dL Calcium 7.9 L (8.4-10.2) mg/dL Multi-Disciplinary Progress Notes: Multi-Disciplinary Progress Notes 11/04/18 21:24 Nutrition Note by Poppy Reilly F/u note: Soft diet con't with 25-50% po intake. Pt with some abd pain and nausea still. Labs 11/04= glu wnl, hgb 8.9, hct 28.4. stable weight. Recommend to con't with soft diet. goal not met and ongoing. Will con't to monitor and f/u prn. T.NORBERT Reilly Initialized on 11/04/18 21:24 - END OF NOTE Assessment/Plan (1) Large bowel obstruction Current Visit: Yes Status: Acute Onset Date: ~10/30/18 Assessment & Plan: pod 6 continues with drainage from the TORRIE bilateral pathology retruned with no malignancy and extensive abscess and scarring. bp running low now not eating or drinking much due to feeling full after small amount of food will give 500 mL bolus LR replace K she did not tolerate the rider due to burning so only 20 given will given additional 20 of the liquid. hold the coreg antibiotic day 04/27 discussed continue to improve diet as tolerated she is more upset about not eating what she likes which is more fast food. She continues to refuse lovenox and i have discussed with her the risk of dvt after a surgery and decreased mobility hopefully if bp improved and surgery is ok with it we can move to Swing bed tomorrow for continued iv antibiotics and to help manage the TORRIE drains and colostomy she needs further rehab as well to improve strength. she had post operative urine retention and the watt was replaced Code(s): K56.609 - UNSP INTESTNL OBST, UNSP TO PARTIAL VERSUS COMPLETE OBST (2) Pneumonia Current Visit: Yes Status: Resolved Onset Date: ~10/30/18 Assessment & Plan: she had bronchosocpy with Dr. Holguin about 3 weeks ago this should be adequately treated with the meropenem Code(s): J18.9 - PNEUMONIA, UNSPECIFIED ORGANISM (3) Essential hypertension Current Visit: Yes Status: Chronic Code(s): I10 - ESSENTIAL (PRIMARY) HYPERTENSION (4) COPD (chronic obstructive pulmonary disease) Current Visit: Yes Status: Chronic (5) Peripheral arterial disease Current Visit: Yes Status: Chronic Code(s): I73.9 - PERIPHERAL VASCULAR DISEASE, UNSPECIFIED (6) Anemia Current Visit: Yes Status: Resolved Code(s): D64.9 - ANEMIA, UNSPECIFIED (7) Intra-abdominal abscess Current Visit: Yes Status: Resolved Code(s): K65.1 - PERITONEAL ABSCESS (8) Perforated viscus Current Visit: Yes Status: Resolved Code(s): R19.8 - OTH SYMPTOMS AND SIGNS INVOLVING THE DGSTV SYS AND ABDOMEN
[2018-11-05] MEDS: K-LYTE 25 MEQ PO SCH (11:34)
[2018-11-05] MEDS ORDERED: POTASSIUM CHL 40 MEQ/30 ML ORAL SOLUTION PO SCH (12:00)
[2018-11-05] MEDS: Nystatin SUSPENSION 60 ML PO SCH ×3 (13:25→21:16)
[2018-11-05] MEDS: ENOXAPARIN SODIUM SQ SCH (13:28)
[2018-11-05] MEDS: NYSTOP 30 GM CREAM TOP SCH ×2 (15:54→21:16)
[2018-11-05] MEDS: PATIENT OWN MEDICATION PO SCH ×2 (21:17)
[2018-11-06 01:16] VITALS: PULSE 87
[2018-11-06] MEDS: FLAGYL 500 MG IVPB 500 MG/100 ML BAG IV SCH (06:17)
[2018-11-06 08:02] VITALS: BP 111/51; O2SAT 92
[2018-11-06] MEDS: PROTONIX 40 MG IV IV SCH (08:10)
[2018-11-06] MEDS: Merrem 1 GM 1 G in Sodium Chloride 100ML MINI-BAG PLUS 100 ML IV SCH (09:44)
[2018-11-06] MEDS: NYSTOP 30 GM CREAM TOP SCH (09:50)
[2018-11-06] MEDS: Nystatin SUSPENSION 60 ML PO SCH ×2 (09:51→13:01)
--- NOTE | 2018-11-06 09:52 | HP ---
DATE OF SURGERY: 10/30/2018 HISTORY OF PRESENT ILLNESS: The patient is a 78 year-old with some diverticulosis a few months ago in [facility]. She had some persistent left lower quadrant aches. No bloody stools. She had some constipation. Last colonoscopy greater than six years ago. PAST MEDICAL HISTORY: Lung cancer. She only has one kidney supposedly that works about 36%. Abdominal aortic aneurysm in the past. She had diverticulitis on 05/07/2018. Chronic obstructive pulmonary disease. Renal insufficiency. Hypertension. PAST SURGICAL HISTORY: Abdominal aortic aneurysm in the past. Stents in legs. Skin cancers removed in the past. Port in the past. MEDICATIONS: Carvedilol, ezetimibe, hydrochlorothiazide, rosuvastatin. ALLERGIES: PENICILLIN, SULFA, IV CONTRAST DYE. FAMILY HISTORY: Negative for colon cancer. There is family history of cancer and hypertension. SOCIAL HISTORY: She is a former smoker. REVIEW OF SYSTEMS: Twelve systems reviewed. No chest pain or palpitations other systems negative or noncontributory as above and per preadmission questionnaire. PHYSICAL EXAMINATION: GENERAL: No acute distress. HEENT: Sclerae nonicteric. NECK: No JVD. CHEST: Equal excursion, nonlabored breathing. CVS: Regular rate and rhythm. ABDOMEN: Soft. No peritoneal signs. She had some mild tenderness left lower quadrant. EXTREMITIES: No significant edema. NEURO: Alert, oriented, moving extremities symmetrically. No gross motor deficits noted. RECTAL: Deferred timed to endoscopy exam. IMPRESSION: History of diverticulitis six months ago. She has some persistent left lower quadrant pain. She is in need of follow up colonoscopy for further evaluation. She is shown the risk sheet and explained the procedure in detail but not limited to bleeding or infection, risk of bowel injury or perforation possibly requiring open procedure, ongoing morbidity, risk of missed or nondiagnosis or incomplete exam possibly requiring barium enema, other studies or procedures, general risk of anesthesia or sedation, risk of bowel prep, postoperative risk of nausea or cramping but not limited to, possibility of inability to diagnose the etiology of her symptoms, general risk of anesthesia or sedation but not limited to. She understands and agrees to the planned procedure, will proceed with outpatient colonoscopy under MAC anesthesia.
--- NOTE | 2018-11-06 09:55 | OP ---
SURGERY DATE/TIME: 10/30/2018 1515 PREOPERATIVE DIAGNOSIS: Large bowel obstruction. POSTOPERATIVE DIAGNOSES: Large bowel obstruction with localized area of perforation, extensive phlegmon down in the pelvis. PROCEDURES: 1) Exploratory laparotomy, sigmoid resection, resection of phlegmon, closure of rectal stump. 2) End colostomy. 3) Extensive lysis small bowel adhesions. SURGEON: Dr. Eligio Foote. CAGE CLERK: Juarez, Medical Student III. ANESTHESIA: General. ESTIMATED BLOOD LOSS: Less than 200 cc. INDICATIONS: As noted above. Risks and benefits explained in detail but not limited to and consent obtained. DESCRIPTION OF PROCEDURE AND FINDINGS: The patient is taken to the operating room. General anesthesia introduced. Abdomen prepped and draped in usual sterile fashion. After official time out and no disagreement with planned procedure, a midline incision made at the old scar. Dissection carried down. Peritoneum entered sharply. There was extensive small bowel adhesions of lower abdomen where she had a prior aortobifemoral surgery I do believe by Dr. Greer in the past. Small bowel loops with adhesion to the anterior abdominal wall in lower abdomen these are slowly and carefully freed. There is no evidence of any enterotomy. There is a little thin spot on the serosa reinforced with some #3-0 PDS but no evidence of any issues of enterotomy. The small bowel was also plastered against the colon. It was necessary to lyse all of these adhesions to mobilize the bowel away from the colon to allow for it to be mobilized once this accomplished. There is some tube creating some adhesions off the small bowel. The right tube is carefully freed up avoiding any issues with the small bowel. Otherwise sigmoid with a twisted phlegmon, extensive reaction of the uterus along the left pelvic side wall down into the pelvis, this took quite some time as this concrete inflammatory reaction slowly and carefully mobilized upwards. Again staying towards the bowel side of the tubes, fimbria and ovary to avoid issues with the pelvic side wall and ureters given the extensive phlegmon concrete reaction. This took quite some time but was slowly and carefully accomplished. At this point it was felt that this is resectable area in question the proximal dilated bowel was transected with contour stapler. It did have localized perforation with stool. It was irrigated, this area was packed away to avoid any contamination rest of the abdomen. Otherwise again staying close to the bowel wall as this was felt not to be a cancer operation, staying well away from patient's aortobifemoral graft as this is a perforated case to avoid any contamination of the graft and to avoid extensive reaction around the side wall to avoid the ureters in this patient who said she has only 36% function of one kidney. Slowly and carefully this twisted obstructed sigmoid is carefully mobilized upwards down to a free spot on top of the rectum which is transected after taking mesocolon, top of the mesorectum down. The contour stapler fired across the top of the rectum. A couple Prolene were used to joe the edges to find at a later date. There was some ooze in the mesentery controlled with some 3-0 PDS popoff. Good hemostasis noted. There was some raw ooze in tube-fimbria area. It was packed with a little small piece of Surgicel in the packing. It appeared to have good hemostasis at the end of the case. At this point the colon was mobilized up on the side of white line of Toldt laterally allowing the colon to mobilized upwards felt to have enough length to come through the abdominal wall. Given this megacolon distention it was necessary to make cruciate incision in the left lower quadrant slightly larger than average given the very thick wall edematous megacolon. This was able to be mobilized through this cruciate incision out to the skin. The ostomy defect was not felt to be too loose. 0 PDS was placed in the fascia medially as there was no SurgAssist to reinforce the area. Copious amount of irrigation irrigating until clear. The omentum had been taken down prior to mobilizing this ostomy to the rectus sheath. Copious amount of irrigation irrigating until clear. Appeared to have good hemostasis. TORRIE drain on the left was laid along the lateral aspect of the ostomy area. On the right it was directed down towards the pelvis. Copious amount of irrigation irrigating until clear. Good hemostasis noted. The small bowel did not appear to be obstructed anywhere. It did have extensive adhesions. It was felt she might not be a candidate for laparoscopic takedown given the degree of small bowel adhesions in the future but time would tell. Otherwise, copious amount of irrigation irrigating until clear. All packs have been removed. Sponge, needle and instrument counts were correct. Gloves and instruments were changed. Fascia closed with running looped 0 PDS. Subcu irrigated out. Skin stapled loosely. Apparently there was no inch Iodoform packing available so some inch packing was placed loosely in between the rachelle to be gradually pulled out over the next few days. TORRIE drain secured with PDS suture placed to bulb suction. Ostomy secured with 3-0 and 4-0 Vicryl in tension-free viable ostomy. The patient tolerated the procedure well. There were no immediate complications. Findings discussed with the family out in the waiting area.
[2018-11-06] MEDS: PERCOCET TABLET 5/325MG PO PRN (12:16)
--- NOTE | 2018-11-06 12:18 | PCM.DS ---
Discharge Summary Date of Admission: 10/30/18 08:29 Admitting Physician: PAULA SWARTZ Consults: Consults on Case 10/30/18 01:44 Consult Surgery ROUTINE Primary Care Provider: PAULA SWARTZ Allergies Allergies Iodinated Contrast- Oral and IV Dye [Iodinated Contrast Media - IV Dye] Allergy (Intermediate, Verified 10/29/18 22:53) penicillin G Allergy (Mild, Verified 10/29/18 22:53) Swelling Sulfa (Sulfonamide Antibiotics) [Sulfa(Sulfonamide Antibiotics)] Allergy (Mild, Verified 10/29/18 22:53) [facility] Summary - Hospital Course Hospital Course: Pt is a 78 yo female pt of Dr. Swartz with HTN, hx lung ca, CKD stage 3, and chronic pain who was undergoing colon prep. She had a small BM then just started having vomiting. She came to the ER and CT abd/pelvis showed large bowel obstruction. Surgery consulted; Dr. Carvajal did a laparotomy and found sigmoid stricture with obstruction and abscess with perforation. She now has an ostomy. Pt currently on day #7/14 of meropenem and flagyl IV. She has been tolerating po for the last several days. CT abd pelvis had showed diffuse fecal debris to sigmoid, where there was obstruction. Also, stable distended GB, small hiatal hernia, arteriosclerotic dz, evidence of old granulomatous disease, and a new RLL pleural parenchymal consolidation for which she was started on IV antibiotics. She is complaining of numbness of the L anterior leg since her surgery. She can walk on the leg. Also c/o R proximal thigh pain since walking down the craft today. Pt has been refusing her lovenox because she states her outcomes specialist told her it would damage her kidneys. Her BUN/Cr on admission were 22/.88; most recently were 14/0.85. She was supposed to be discharged to swing bed yesterday, but her BP was in the 80s and her potassium was low. She could not tolerate IV potassium so was given K-lyte; she would rather have potassium pills. Her BP is normal today so she will be discharged to a swing bed. - Vitals & Intake/Output Vital Signs: Vital Signs Temperature 99.0 F 11/06/18 08:00 Pulse Rate 87 11/06/18 08:00 Respiratory Rate 17 11/06/18 08:00 Blood Pressure 111/51 11/06/18 08:00 O2 Sat by Pulse Oximetry 92 L 11/06/18 08:00 Oxygen-Last Documented O2 Percentage 2 Liters = 28% Intake & Output: Intake & Output 11/04/18 11/05/18 11/06/18 11/07/18 11:59 11:59 11:59 11:59 Intake Total 2249 810 1395 Output Total 1145 1340 600 Balance 1104 -530 795 - Lab Result Diagrams: 11/05/18 05:25 11/05/18 13:28 Lab Results-Last 24 Hrs: Lab Results-Last 24 Hours 11/05/18 Range/Units 13:28 Potassium 4.0 D (3.5-5.1) mmol/L Micro Results-Entire Visit: Microbiology 11/03/18 09:10 Urine Culture - Final Catherized NO GROWTH 10/30/18 15:30 Urine Culture - Final Catherized NO GROWTH - Procedures and Test Procedures and Tests throughout Hospitalization: Therapy Orders & Screens 10/30/18 19:51 Oxygen NASAL CANNULA 2 lpm Comment: Diagnosis: COLON OBSTRUCTION WITH SURGICAL CONSULT 10/30/18 21:53 Incentive Spirometry TID Comment: Diagnosis: COLON OBSTRUCTION WITH SURGICAL CONSULT 10/31/18 21:28 Respiratory Therapy Assessment DAILY Comment: Diagnosis: COLON OBSTRUCTION WITH SURGICAL CONSULT Discharge Exam General Appearance: no apparent distress, alert Neurologic Exam: oriented x 3, cooperative, other (bilat dorsiflexion and plantar flexion 5/5) Skin Exam: normal color, warm, dry, No rash Respiratory Exam: normal breath sounds, lungs clear, No crackles/rales, No rhonchi, No wheezing Cardiovascular Exam: regular rate/rhythm, normal heart sounds, No murmur Gastrointestinal/Abdomen Exam: soft, normal bowel sounds, other (binder and dressing in place after Dr. Carvajal's visit this morning) Extremity Exam: normal inspection, swelling (tr pretibial edema bilat) Back Exam: normal inspection, No rash Final Diagnosis/Problem List - Final Discharge Diagnosis/Problem (1) Colonic obstruction Current Visit: Yes Status: Acute Onset Date: ~10/30/18 Assessment & Plan: POD #6 today. on Day #7/14d total planned IV meropenem and flagyl. Being discharged to swing bed today. (2) Hypokalemia Current Visit: Yes Status: Acute Assessment & Plan: recheck potassium. She would like to be on pills instead of liquid but I would clear that with surgery first. (3) Intra-abdominal abscess Current Visit: Yes Status: Resolved (4) Perforated viscus Current Visit: Yes Status: Resolved (5) COPD (chronic obstructive pulmonary disease) Current Visit: Yes Status: Chronic (6) Essential hypertension Current Visit: Yes Status: Chronic (7) Peripheral arterial disease Current Visit: Yes Status: Chronic (8) Pneumonia Current Visit: Yes Status: Resolved Onset Date: ~10/30/18 Assessment & Plan: IV antibiotics as above. Clinically sounds like she never had obvious s/sx of pneumonia. (9) Chronic renal disease Current Visit: Yes Status: Acute Assessment & Plan: renal function has been very good here. (10) DVT prophylaxis Current Visit: Yes Status: Acute Assessment & Plan: refuses lovenox despite discussion yesterday with her PCP about the dangers of blood clot after surgery and while in the hospital. - Discharge Disposition: Swing Bed @ [facility] Condition: Stable Prescriptions: No Action Hydrochlorothiazide 12.5 mg PO DAILY Carvedilol 3.125 mg [Coreg 3.125 MG] 6.25 mg PO BID Ezetimibe 10 mg PO DAILY Rosuvastatin Calcium [Crestor] 10 mg PO DAILY Follow up with: PAULA SWARTZ [Primary Care Provider] - 1 Week
[2018-11-06] MEDS: K-LYTE 25 MEQ PO SCH (13:00)
[2018-11-06 13:25] LABS: Hematocrit 28.6 % (35-47); Mean Cell Volume 92.9 fl (78-100); Mean Corpuscular Hemoglobin 29.2 pg (26-32); Mean Corpuscular Hgb Concent. 31.5 g/dl (32-36); Mean Platelet Volume 10.3 fl (6-9.5); Platelet Count 316 K/mm3 (150-450); Red Blood Count 3.08 M/mm3 (4.1-5.4); Red Cell Distribution Width 14.7 % (11.5-14.0); White Blood Count 11.8 K/mm3 (4.0-10.5)
[2018-11-06 13:41] LABS: ANION GAP 8.6 MEQ/L (5-15); BLOOD UREA NITROGEN 13 mg/dL (7-17); CHLORIDE 100 mmol/L (98-107); Calcium 7.8 mg/dL (8.4-10.2); Carbon Dioxide 31 mmol/L (22-30); Creatinine 1 0.84 mg/dL (0.52-1.04); Glucose 157 mg/dL (74-106); Potassium 3.6 mmol/L (3.5-5.1); SODIUM 136 mmol/L (137-145)
== END 2018-11-06 13:02 | disposition swing bed (61) | DRG 329 ==
LOC: ED 22:27 → MED SURG 10-30 01:40 → OBSVTOIN 10-30 08:29 → ICU 10-30 18:55 → MED SURG 10-31 12:01
PROVIDERS: ADMIT Family Medicine; ATTEND Family Medicine
PROC: 0DTE0ZZ Resection of Large Intestine, Open Approach (ICD-10-PCS; principal; 2018-10-29)
PROC: 0DN80ZZ Release Small Intestine, Open Approach (ICD-10-PCS; 2018-10-29)
DX: K56.50 Intestinal adhesions [bands], unspecified as to partial versus complete obstruction (principal); R10.9 Unspecified abdominal pain; E87.6 Hypokalemia; R19.8 Other specified symptoms and signs involving the digestive system and abdomen; K56.1 Intussusception; R11.10 Vomiting, unspecified; I73.9 Peripheral vascular disease, unspecified; D64.9 Anemia, unspecified; K56.609 Unspecified intestinal obstruction, unspecified as to partial versus complete obstruction; J18.9 Pneumonia, unspecified organism; Z79.899 Other long term (current) drug therapy; Z85.828 Personal history of other malignant neoplasm of skin; I12.9 Hypertensive chronic kidney disease with stage 1 through stage 4 chronic kidney disease, or unspecified chronic kidney disease; N18.3 Chronic kidney disease, stage 3 (moderate); K44.9 Diaphragmatic hernia without obstruction or gangrene; R20.0 Anesthesia of skin; M79.651 Pain in right thigh; K59.00 Constipation, unspecified; E78.00 Pure hypercholesterolemia, unspecified; I10 Essential (primary) hypertension; J44.9 Chronic obstructive pulmonary disease, unspecified; Z85.118 Personal history of other malignant neoplasm of bronchus and lung; M19.90 Unspecified osteoarthritis, unspecified site
CPT/HCPCS: 36000; 36415; 64488; 74176; 76937; 76942; 80048; 80053; 81001; 83605; 83690; 84132; 84484; 85025; 85027; 87086; 88307; 93005; 93268; 94010; 94760; 94762; 96360; 96365; 96374; 99100; 99140; 99285; J0330; J0456; J0694; J0696; J1100; J1170; J1885; J1956; J2270; J2370; J2405; J2704; J2795; J3010; J3480; L0625; A9270-GY

== ENCOUNTER 2018-10-30 01:40 | Day surgery (SDC) | payer MEDICARE, OTHER ==
--- NOTE | 2018-10-30 08:54 | HP ---
DATE OF SURGERY: 10/30/2018 HISTORY OF PRESENT ILLNESS: The patient is a 78 year-old with some diverticulosis a few months ago in [facility]. She had some persistent left lower quadrant aches. No bloody stools. She had some constipation. Last colonoscopy greater than six years ago. PAST MEDICAL HISTORY: Lung cancer. She only has one kidney supposedly that works about 36%. Abdominal aortic aneurysm in the past. She had diverticulitis on 05/07/2018. Chronic obstructive pulmonary disease. Renal insufficiency. Hypertension. PAST SURGICAL HISTORY: Abdominal aortic aneurysm in the past. Stents in legs. Skin cancers removed in the past. Port in the past. MEDICATIONS: Carvedilol, ezetimibe, hydrochlorothiazide, rosuvastatin. ALLERGIES: PENICILLIN, SULFA, IV CONTRAST DYE. FAMILY HISTORY: Negative for colon cancer. There is family history of cancer and hypertension. SOCIAL HISTORY: She is a former smoker. REVIEW OF SYSTEMS: Twelve systems reviewed. No chest pain or palpitations other systems negative or noncontributory as above and per preadmission questionnaire. PHYSICAL EXAMINATION: GENERAL: No acute distress. HEENT: Sclerae nonicteric. NECK: No JVD. CHEST: Equal excursion, nonlabored breathing. CVS: Regular rate and rhythm. ABDOMEN: Soft. No peritoneal signs. She had some mild tenderness left lower quadrant. EXTREMITIES: No significant edema. NEURO: Alert, oriented, moving extremities symmetrically. No gross motor deficits noted. RECTAL: Deferred timed to endoscopy exam. IMPRESSION: History of diverticulitis six months ago. She has some persistent left lower quadrant pain. She is in need of follow up colonoscopy for further evaluation. She is shown the risk sheet and explained the procedure in detail but not limited to bleeding or infection, risk of bowel injury or perforation possibly requiring open procedure, ongoing morbidity, risk of missed or nondiagnosis or incomplete exam possibly requiring barium enema, other studies or procedures, general risk of anesthesia or sedation, risk of bowel prep, postoperative risk of nausea or cramping but not limited to, possibility of inability to diagnose the etiology of her symptoms, general risk of anesthesia or sedation but not limited to. She understands and agrees to the planned procedure, will proceed with outpatient colonoscopy under MAC anesthesia.
[2018-10-31] MEDS ORDERED: Ketamine HCl 50 MG/ML IJ ONE (11:15)
--- NOTE | 2018-10-31 11:50 | OP ---
SURGERY DATE/TIME: 10/30/2018 1515 PREOPERATIVE DIAGNOSIS: Large bowel obstruction. POSTOPERATIVE DIAGNOSES: Large bowel obstruction with localized area of perforation, extensive phlegmon down in the pelvis. PROCEDURES: 1) Exploratory laparotomy, sigmoid resection, resection of phlegmon, closure of rectal stump. 2) End colostomy. 3) Extensive lysis small bowel adhesions. SURGEON: Dr. Eligio Foote. PILOT SUBMERSIBLE: Juarez, Medical Student III. ANESTHESIA: General. ESTIMATED BLOOD LOSS: Less than 200 cc. INDICATIONS: As noted above. Risks and benefits explained in detail but not limited to and consent obtained. DESCRIPTION OF PROCEDURE AND FINDINGS: The patient is taken to the operating room. General anesthesia introduced. Abdomen prepped and draped in usual sterile fashion. After official time out and no disagreement with planned procedure, a midline incision made at the old scar. Dissection carried down. Peritoneum entered sharply. There was extensive small bowel adhesions of lower abdomen where she had a prior aortobifemoral surgery I do believe by Dr. Greer in the past. Small bowel loops with adhesion to the anterior abdominal wall in lower abdomen these are slowly and carefully freed. There is no evidence of any enterotomy. There is a little thin spot on the serosa reinforced with some #3-0 PDS but no evidence of any issues of enterotomy. The small bowel was also plastered against the colon. It was necessary to lyse all of these adhesions to mobilize the bowel away from the colon to allow for it to be mobilized once this accomplished. There is some tube creating some adhesions off the small bowel. The right tube is carefully freed up avoiding any issues with the small bowel. Otherwise sigmoid with a twisted phlegmon, extensive reaction of the uterus along the left pelvic side wall down into the pelvis, this took quite some time as this concrete inflammatory reaction slowly and carefully mobilized upwards. Again staying towards the bowel side of the tubes, fimbria and ovary to avoid issues with the pelvic side wall and ureters given the extensive phlegmon concrete reaction. This took quite some time but was slowly and carefully accomplished. At this point it was felt that this is resectable area in question the proximal dilated bowel was transected with contour stapler. It did have localized perforation with stool. It was irrigated, this area was packed away to avoid any contamination rest of the abdomen. Otherwise again staying close to the bowel wall as this was felt not to be a cancer operation, staying well away from patient's aortobifemoral graft as this is a perforated case to avoid any contamination of the graft and to avoid extensive reaction around the side wall to avoid the ureters in this patient who said she has only 36% function of one kidney. Slowly and carefully this twisted obstructed sigmoid is carefully mobilized upwards down to a free spot on top of the rectum which is transected after taking mesocolon, top of the mesorectum down. The contour stapler fired across the top of the rectum. A couple Prolene were used to joe the edges to find at a later date. There was some ooze in the mesentery controlled with some 3-0 PDS popoff. Good hemostasis noted. There was some raw ooze in tube-fimbria area. It was packed with a little small piece of Surgicel in the packing. It appeared to have good hemostasis at the end of the case. At this point the colon was mobilized up on the side of white line of Toldt laterally allowing the colon to mobilized upwards felt to have enough length to come through the abdominal wall. Given this megacolon distention it was necessary to make cruciate incision in the left lower quadrant slightly larger than average given the very thick wall edematous megacolon. This was able to be mobilized through this cruciate incision out to the skin. The ostomy defect was not felt to be too loose. 0 PDS was placed in the fascia medially as there was no SurgAssist to reinforce the area. Copious amount of irrigation irrigating until clear. The omentum had been taken down prior to mobilizing this ostomy to the rectus sheath. Copious amount of irrigation irrigating until clear. Appeared to have good hemostasis. TORRIE drain on the left was laid along the lateral aspect of the ostomy area. On the right it was directed down towards the pelvis. Copious amount of irrigation irrigating until clear. Good hemostasis noted. The small bowel did not appear to be obstructed anywhere. It did have extensive adhesions. It was felt she might not be a candidate for laparoscopic takedown given the degree of small bowel adhesions in the future but time would tell. Otherwise, copious amount of irrigation irrigating until clear. All packs have been removed. Sponge, needle and instrument counts were correct. Gloves and instruments were changed. Fascia closed with running looped 0 PDS. Subcu irrigated out. Skin stapled loosely. Apparently there was no inch Iodoform packing available so some inch packing was placed loosely in between the rachelle to be gradually pulled out over the next few days. TORRIE drain secured with PDS suture placed to bulb suction. Ostomy secured with 3-0 and 4-0 Vicryl in tension-free viable ostomy. The patient tolerated the procedure well. There were no immediate complications. Findings discussed with the family out in the waiting area.
== END 2018-10-30 01:45 ==
LOC: SDC 01:40
PROVIDERS: ATTEND Surgery
DX: Z53.9 Procedure and treatment not carried out, unspecified reason (principal)

== ENCOUNTER 2018-11-06 11:12 | Inpatient (IN) | payer MEDICARE, OTHER ==
[2018-11-06] MEDS ORDERED: Phenergan 25 MG INJ IV PRN (11:24)
[2018-11-06] MEDS ORDERED: BENADRYL 25 MG CAPSULE PO PRN (11:24)
[2018-11-06] MEDS ORDERED: FEVERALL 650 MG PR PRN (11:24)
[2018-11-06] MEDS ORDERED: Zofran 4 MG/2 ML VIAL IV PRN (11:24)
[2018-11-06] MEDS ORDERED: Aplisol ID ONE (13:00)
[2018-11-06] MEDS: Nystatin SUSPENSION 60 ML PO SCH ×3 (15:04→21:48)
[2018-11-06] MEDS: FLAGYL 500 MG IVPB 500 MG/100 ML BAG IV SCH ×2 (15:37→21:48)
[2018-11-06] MEDS: PERCOCET TABLET 5/325MG PO PRN (21:47)
[2018-11-06] MEDS: Merrem 1 GM 1 G in Sodium Chloride 100ML MINI-BAG PLUS 100 ML IV SCH (21:48)
[2018-11-06] MEDS: NYSTOP 30 GM CREAM TOP SCH (21:49)
[2018-11-06] MEDS: PATIENT OWN MEDICATION PO SCH (21:50)
[2018-11-07] MEDS: FLAGYL 500 MG IVPB 500 MG/100 ML BAG IV SCH ×3 (06:34→23:28)
[2018-11-07] MEDS: PROTONIX 40 MG IV IV SCH (09:19)
[2018-11-07] MEDS: K-LYTE 25 MEQ PO SCH (09:19)
[2018-11-07] MEDS: Nystatin SUSPENSION 60 ML PO SCH ×4 (09:24→23:03)
[2018-11-07] MEDS: Merrem 1 GM 1 G in Sodium Chloride 100ML MINI-BAG PLUS 100 ML IV SCH ×2 (10:15→22:54)
[2018-11-07] MEDS: ENOXAPARIN SODIUM SQ SCH (10:19)
[2018-11-07] MEDS: NYSTOP 30 GM CREAM TOP SCH (12:13)
[2018-11-07] MEDS: PERCOCET TABLET 5/325MG PO PRN (12:18)
[2018-11-07] MEDS: PATIENT OWN MEDICATION PO SCH (23:00)
[2018-11-08] MEDS: PERCOCET TABLET 5/325MG PO PRN ×3 (00:42→21:29)
[2018-11-08] MEDS: NYSTOP 30 GM CREAM TOP SCH ×3 (01:31→21:26)
[2018-11-08] MEDS: FLAGYL 500 MG IVPB 500 MG/100 ML BAG IV SCH ×3 (06:35→22:53)
[2018-11-08] MEDS: PROTONIX 40 MG IV IV SCH (08:04)
[2018-11-08] MEDS: Nystatin SUSPENSION 60 ML PO SCH ×4 (09:33→21:26)
[2018-11-08] MEDS: K-LYTE 25 MEQ PO SCH (09:33)
[2018-11-08] MEDS: Merrem 1 GM 1 G in Sodium Chloride 100ML MINI-BAG PLUS 100 ML IV SCH ×2 (09:34→21:25)
[2018-11-08] MEDS: ENOXAPARIN SODIUM SQ SCH (09:39)
[2018-11-08] MEDS: PATIENT OWN MEDICATION PO SCH (21:27)
[2018-11-09] MEDS: FLAGYL 500 MG IVPB 500 MG/100 ML BAG IV SCH ×2 (05:24→13:50)
[2018-11-09] MEDS: PERCOCET TABLET 5/325MG PO PRN (09:13)
[2018-11-09] MEDS: K-LYTE 25 MEQ PO SCH (09:14)
[2018-11-09] MEDS: PROTONIX 40 MG IV IV SCH (09:14)
[2018-11-09] MEDS: Nystatin SUSPENSION 60 ML PO SCH ×4 (09:15→21:46)
[2018-11-09] MEDS: Merrem 1 GM 1 G in Sodium Chloride 100ML MINI-BAG PLUS 100 ML IV SCH ×2 (09:15→21:46)
[2018-11-09] MEDS: NYSTOP 30 GM CREAM TOP SCH ×2 (09:15→21:47)
[2018-11-09] MEDS: ENOXAPARIN SODIUM SQ SCH (09:26)
[2018-11-09] MEDS: hydroDIURIL 25 MG PO SCH (12:07)
[2018-11-09 14:26] LABS: Hematocrit 26.6 % (35-47); Hemoglobin 8.3 gm/dl (12.0-16.0); Mean Cell Volume 92.7 fl (78-100); Mean Corpuscular Hemoglobin 28.9 pg (26-32); Mean Corpuscular Hgb Concent. 31.2 g/dl (32-36); Mean Platelet Volume 9.3 fl (6-9.5); Platelet Count 405 K/mm3 (150-450); Red Blood Count 2.87 M/mm3 (4.1-5.4); Red Cell Distribution Width 14.9 % (11.5-14.0); White Blood Count 10.1 K/mm3 (4.0-10.5)
[2018-11-09] MEDS: PATIENT OWN MEDICATION PO SCH (21:49)
[2018-11-09] MEDS: Sodium Chloride 0.9% 10 ML FLUSH Syringe IV SCH (22:07)
[2018-11-10] MEDS: PERCOCET TABLET 5/325MG PO PRN ×3 (00:33→23:22)
[2018-11-10 05:48] LABS: Hematocrit 25.2 % (35-47); Mean Cell Volume 91.6 fl (78-100); Mean Corpuscular Hgb Concent. 31.7 g/dl (32-36); Mean Platelet Volume 9.7 fl (6-9.5); Platelet Count 416 K/mm3 (150-450); Red Blood Count 2.75 M/mm3 (4.1-5.4); Red Cell Distribution Width 14.8 % (11.5-14.0); White Blood Count 9.5 K/mm3 (4.0-10.5)
[2018-11-10 06:11] LABS: ALBUMIN 2.3 g/dL (3.5-5.0); ALKALINE PHOSPHATASE 71 U/L (38-126); ANION GAP 9.2 MEQ/L (5-15); BLOOD UREA NITROGEN 9 mg/dL (7-17); CHLORIDE 101 mmol/L (98-107); Calcium 8.1 mg/dL (8.4-10.2); Carbon Dioxide 32 mmol/L (22-30); Creatinine 1 0.67 mg/dL (0.52-1.04); Glucose 84 mg/dL (74-106); Potassium 3.3 mmol/L (3.5-5.1); SGOT/AST 20 U/L (14-36); SGPT/ALT 10 U/L (0-35); SODIUM 139 mmol/L (137-145)
[2018-11-10] MEDS: Sodium Chloride 0.9% 10 ML FLUSH Syringe IV SCH ×3 (06:18→22:43)
[2018-11-10] MEDS: PROTONIX 40 MG IV IV SCH (08:02)
[2018-11-10] MEDS: ENOXAPARIN SODIUM SQ SCH ×2 (10:05→10:17)
[2018-11-10] MEDS: K-LYTE 25 MEQ PO SCH ×2 (10:06→22:40)
[2018-11-10] MEDS: hydroDIURIL 25 MG PO SCH (10:06)
[2018-11-10] MEDS: Nystatin SUSPENSION 60 ML PO SCH ×4 (10:07→22:38)
[2018-11-10] MEDS: NYSTOP 30 GM CREAM TOP SCH ×2 (10:07→22:38)
[2018-11-10] MEDS: Merrem 1 GM 1 G in Sodium Chloride 100ML MINI-BAG PLUS 100 ML IV SCH ×2 (10:11→22:36)
[2018-11-10] MEDS: PATIENT OWN MEDICATION PO SCH (22:36)
[2018-11-11] MEDS: Sodium Chloride 0.9% 10 ML FLUSH Syringe IV SCH ×3 (06:58→21:43)
[2018-11-11] MEDS: K-LYTE 25 MEQ PO SCH ×2 (09:24→21:41)
[2018-11-11] MEDS: hydroDIURIL 25 MG PO SCH (09:24)
[2018-11-11] MEDS: PROTONIX 40 MG IV IV SCH (09:24)
[2018-11-11] MEDS: ENOXAPARIN SODIUM SQ SCH ×2 (09:24→09:40)
[2018-11-11] MEDS: Nystatin SUSPENSION 60 ML PO SCH ×4 (09:25→21:42)
[2018-11-11] MEDS: NYSTOP 30 GM CREAM TOP SCH ×2 (09:25→21:42)
[2018-11-11] MEDS: Merrem 1 GM 1 G in Sodium Chloride 100ML MINI-BAG PLUS 100 ML IV SCH ×2 (09:26→21:51)
[2018-11-11] MEDS: PERCOCET TABLET 5/325MG PO PRN (13:02)
[2018-11-11] MEDS: PATIENT OWN MEDICATION PO SCH (21:43)
[2018-11-12] MEDS: PERCOCET TABLET 5/325MG PO PRN ×2 (01:58→22:06)
[2018-11-12] MEDS: Sodium Chloride 0.9% 10 ML FLUSH Syringe IV SCH ×3 (05:31→22:11)
[2018-11-12] MEDS: hydroDIURIL 25 MG PO SCH (09:06)
[2018-11-12] MEDS: ENOXAPARIN SODIUM SQ SCH ×2 (09:07→09:23)
[2018-11-12] MEDS: K-LYTE 25 MEQ PO SCH ×2 (09:07→22:11)
[2018-11-12] MEDS: PROTONIX 40 MG IV IV SCH (09:07)
[2018-11-12] MEDS: Nystatin SUSPENSION 60 ML PO SCH ×4 (09:07→22:07)
[2018-11-12] MEDS: NYSTOP 30 GM CREAM TOP SCH ×2 (09:08→22:11)
[2018-11-12] MEDS: Merrem 1 GM 1 G in Sodium Chloride 100ML MINI-BAG PLUS 100 ML IV SCH (09:09)
[2018-11-12] MEDS: PATIENT OWN MEDICATION PO SCH (22:11)
[2018-11-13] MEDS: Sodium Chloride 0.9% 10 ML FLUSH Syringe IV SCH (06:09)
[2018-11-13] MEDS: PROTONIX 40 MG IV IV SCH (07:58)
[2018-11-13] MEDS: hydroDIURIL 25 MG PO SCH (10:47)
[2018-11-13] MEDS: K-LYTE 25 MEQ PO SCH ×2 (10:47→22:10)
[2018-11-13] MEDS: Nystatin SUSPENSION 60 ML PO SCH ×4 (10:48→22:12)
[2018-11-13] MEDS: NYSTOP 30 GM CREAM TOP SCH ×2 (10:49→22:11)
[2018-11-13] MEDS ORDERED: PHENERGAN 25 MG PO PRN (10:50)
--- NOTE | 2018-11-13 11:12 | PCM.NOTE ---
Date and Time: 11/13/18 1106 Subjective Assessment: off service note she is improving daily. She still is having significant difficulty taking care of the ostomy on her own her strength and walking is improving however very well. she is eating better having some sharp intermittent pains in the left lower quadrant but overall doing very well now Objective Exam General Appearance: no apparent distress Neurologic Exam: alert, oriented x 3, cooperative Skin Exam: warm, dry Ears, Nose, Throat Exam: moist mucous membranes Neck Exam: non-tender, supple Respiratory Exam: lungs clear Cardiovascular Exam: regular rate/rhythm, normal heart sounds Gastrointestinal/Abdomen Exam: soft, normal bowel sounds, other (ostomy; rachelle ), No tenderness, No distention Extremity Exam: pedal edema (trace to 1+ joseline LE edema) OBJECTIVE DATA Vital Signs: Vital Signs - 24 hr Temp Pulse Resp BP Pulse Ox 11/13/18 08:00 16 11/13/18 07:02 98.9 F 86 18 111/54 93 L 11/13/18 04:00 18 11/13/18 00:00 18 11/12/18 20:00 18 11/12/18 19:57 98.2 F 102 H 18 130/60 97 11/12/18 16:00 18 11/12/18 12:00 18 Pain Assessment - Last Documented Pain Intensity 0 Pain Scale Used 0-10 Pain Scale Intake and Output: Intake & Output 11/10/18 11/11/18 11/12/18 11/13/18 11:59 11:59 11:59 11:59 Intake Total 591 277 6293 2040 Output Total 2925 2200 2800 3400 Balance -2004 -1420 -1600 -1360 Multi-Disciplinary Progress Notes: Multi-Disciplinary Progress Notes 11/12/18 11:51 Case Management Note by Chana Castillo PATIENT AND FAMILY ASKING QUESTIONS REGARDING DME NEEDS AT HOME SUCH A COMMODE AND A WALKER. NOTIFIED THAT WE COULD ARRANGE FOR THOSE THINGS AT TIME OF DISCHARGE. PATIENT AND FAMILY CURRENTLY REPORTING THEY WISH TO TRY TO GO HOME "IF THEY LET HER" AT TIME OF DISCHARGE INSTEAD OF SNF. PRIMARY NURSE NOTIFIED THAT PATIENT REPORTS SHE NEEDS TAUGHT/DEMONSTRATED HOW TO CHANGE HER WHOLE APPLIANCE BEFORE TIME OF DISCHARGEE. SHE VERIFIED UNDERSTANDING. Initialized on 11/12/18 11:51 - END OF NOTE Assessment/Plan (1) S/P partial colectomy Current Visit: Yes Status: Acute Assessment & Plan: post op day 14 for sigmoid colectomy due to colon stricture with abscess and perforation due to diverticultiis she has completed 14 days of iv meropenem after the surgery she is having some mild swelling in her legs but otherwise doing well her weakness is improving with therapy and she is learning ostomy care currently. She wants to rehab to home but is still having difficulty with transferring on her own today she will need home health if she is strong enough to go home d/c antibiotics 14 days completed; d/c iv; change to po meds continue rehabilitation discussed with patient transition of care to covering physician today Code(s): Z90.49 - ACQUIRED ABSENCE OF OTHER SPECIFIED PARTS OF DIGESTIVE TRACT (2) Essential hypertension Current Visit: Yes Status: Chronic Code(s): I10 - ESSENTIAL (PRIMARY) HYPERTENSION (3) COPD (chronic obstructive pulmonary disease) Current Visit: Yes Status: Chronic (4) Peripheral arterial disease Current Visit: Yes Status: Chronic Code(s): I73.9 - PERIPHERAL VASCULAR DISEASE, UNSPECIFIED
[2018-11-13] MEDS: Coreg 3.125 MG PO SCH ×2 (12:33→22:10)
[2018-11-13] MEDS: PERCOCET TABLET 5/325MG PO PRN ×2 (16:03→22:16)
[2018-11-14] MEDS: NYSTOP 30 GM CREAM TOP SCH ×2 (11:28→21:38)
[2018-11-14] MEDS: hydroDIURIL 25 MG PO SCH (11:31)
[2018-11-14] MEDS: Coreg 3.125 MG PO SCH ×2 (11:31→21:35)
[2018-11-14] MEDS: Protonix 40MG Tablet PO SCH (11:31)
[2018-11-14] MEDS: K-LYTE 25 MEQ PO SCH ×2 (11:37→21:35)
[2018-11-14] MEDS: Nystatin SUSPENSION 60 ML PO SCH ×4 (11:43→21:38)
[2018-11-14] MEDS: PATIENT OWN MEDICATION PO SCH ×2 (21:36→21:37)
[2018-11-14] MEDS: PERCOCET TABLET 5/325MG PO PRN (21:38)
[2018-11-15 07:22] VITALS: BP 92/44; PULSE 80; O2SAT 91
--- NOTE | 2018-11-15 08:59 | PCM.DS ---
Discharge Summary Date of Admission: 11/06/18 13:03 Admitting Physician: PAULA SWARTZ Primary Care Provider: PAULA SWARTZ Allergies Allergies Iodinated Contrast- Oral and IV Dye [Iodinated Contrast Media - IV Dye] Allergy (Intermediate, Verified 10/29/18 22:53) penicillin G Allergy (Mild, Verified 10/29/18 22:53) Swelling Sulfa (Sulfonamide Antibiotics) [Sulfa(Sulfonamide Antibiotics)] Allergy (Mild, Verified 10/29/18 22:53) [facility] Summary - Hospital Course Hospital Course: patient was under the care of Dr Swartz during her stay, was only seen by me on date of discharge. had required colostomy due to abscess and perforation, [facility] tolerating regular diet, has received teaching for ostomy care and is ready to discharge to home at this time. - Vitals & Intake/Output Vital Signs: Vital Signs Temperature 98.5 F 11/15/18 07:20 Pulse Rate 80 11/15/18 07:20 Respiratory Rate 18 11/15/18 07:20 Blood Pressure 92/44 11/15/18 07:20 O2 Sat by Pulse Oximetry 91 L 11/15/18 07:20 Intake & Output: Intake & Output 11/12/18 11/13/18 11/14/18 11/15/18 11:59 11:59 11:59 11:59 Intake Total 1200 2040 720 780 Output Total 2800 3400 2140 1550 Balance -1600 -1360 -1420 -770 Weight 64.1 kg - Lab Result Diagrams: 11/10/18 05:06 11/10/18 05:06 - Procedures and Test Procedures and Tests throughout Hospitalization: Therapy Orders & Screens 11/06/18 11:24 Oxygen NASAL CANNULA 2 lpm Comment: Diagnosis: COLON OBSTRUCTION WITH SURGICAL CONSULT Respiratory Therapy Assessment DAILY Comment: Diagnosis: COLON OBSTRUCTION WITH SURGICAL CONSULT 11/06/18 13:00 PT Eval & Treat ( Order) Reason for Eval:: DECONDITIONING R/T COLON RESECTION WITH OSTOMY Diagnosis: COLON OBSTRUCTION WITH SURGICAL CONSULT Discharge Exam General Appearance: no apparent distress, alert Skin Exam: normal color, warm, dry Respiratory Exam: normal breath sounds, lungs clear, No respiratory distress Cardiovascular Exam: regular rate/rhythm, normal heart sounds Gastrointestinal/Abdomen Exam: soft, normal bowel sounds, other (ostomy in LLQ pink and viable, stool in bag), No tenderness, No distention Extremity Exam: normal inspection, normal range of motion Final Diagnosis/Problem List - Final Discharge Diagnosis/Problem (1) Large bowel obstruction Current Visit: Yes Status: Acute Onset Date: ~10/30/18 (2) S/P partial colectomy Current Visit: Yes Status: Acute (3) COPD (chronic obstructive pulmonary disease) Current Visit: Yes Status: Chronic (4) Essential hypertension Current Visit: Yes Status: Chronic - Discharge Disposition: Home, Self-Care Condition: Stable Prescriptions: New Ostomy Supply [Assura] 1 each MC UD #10 each Oxycodone/APAP 5 mg/325 mg [Percocet Tablet 5/325Mg] 1 tab PO Q4H PRN PRN #20 tablet MDD 4 PRN Reason: Pain PANTOPRAZOLE 40 mg Tablet [Protonix 40MG Tablet] 40 mg PO DAILY #30 tab Continue Hydrochlorothiazide 12.5 mg PO DAILY Carvedilol 3.125 mg [Coreg 3.125 MG] 6.25 mg PO BID Ezetimibe 10 mg PO DAILY Rosuvastatin Calcium [Crestor] 10 mg PO DAILY Follow up with: SHEYLA REYES [COURTESY STAFF] - 12/04/18 8:25 am ([facility]) PATRICIA HYDE NP [NON-STAFF PHY W/O PRIVILEGES] - 1 Week
[2018-11-15] MEDS: Coreg 3.125 MG PO SCH (09:26)
[2018-11-15] MEDS: NYSTOP 30 GM CREAM TOP SCH (09:26)
[2018-11-15] MEDS: K-LYTE 25 MEQ PO SCH (09:26)
[2018-11-15] MEDS: Protonix 40MG Tablet PO SCH (09:26)
[2018-11-15] MEDS: Nystatin SUSPENSION 60 ML PO SCH ×2 (09:27→13:29)
[2018-11-15] MEDS: hydroDIURIL 25 MG PO SCH (09:30)
[2018-11-15] MEDS ORDERED: DIFLUCAN PO ONE (11:00)
== END 2018-11-15 16:35 | disposition home health service (06) | DRG 388 ==
LOC: MED SURG 13:03
PROVIDERS: ADMIT Family Medicine; ATTEND Family Medicine
DX: K56.609 Unspecified intestinal obstruction, unspecified as to partial versus complete obstruction (principal); J18.9 Pneumonia, unspecified organism; Z90.49 Acquired absence of other specified parts of digestive tract; J44.9 Chronic obstructive pulmonary disease, unspecified; I10 Essential (primary) hypertension; E78.00 Pure hypercholesterolemia, unspecified; Z85.118 Personal history of other malignant neoplasm of bronchus and lung; N28.9 Disorder of kidney and ureter, unspecified; Z85.828 Personal history of other malignant neoplasm of skin; I73.9 Peripheral vascular disease, unspecified; L89.312 Pressure ulcer of right buttock, stage 2
CPT/HCPCS: 36415; 80053; 85027; 94760; J1650; 97110-GP; A9270-GY

== ENCOUNTER 2021-06-15 09:44 | Day surgery (SDC) | payer MEDICARE ==
[2021-06-15] MEDS ORDERED: Lactated Ringers 1,000 ML IV SCH (10:30)
[2021-06-15] MEDS ORDERED: CLINDAMYCIN-D5W 900 MG/50 ML*** 900 MG/50 ML BAG IV SCH (11:00)
[2021-06-15] MEDS ORDERED: Lactated Ringers 1,000 ML IV ONE (12:40)
[2021-06-15] MEDS ORDERED: XYLOCAINE 1% HCL 20 ML MDV ONE (12:40)
[2021-06-15] MEDS ORDERED: Ketamine HCl 50 MG/ML ONE (13:13)
[2021-06-15] MEDS ORDERED: Versed 2 MG/2 ML Injection ONE (13:15)
--- NOTE | 2021-06-15 13:29 | HP ---
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 She had a port placed by a radiologist I think at [facility]. The port is eroded through the skin and is infected. She was in the hospital the end of May. They asked for us to see the patient for removal of the old port and placing a new port. PAST MEDICAL HISTORY: Hypertension, hypercholesterolemia, lung cancer, aneurysm in the past. PAST SURGICAL HISTORY: Endoscopy in the past. Port in the past. Acute diverticulitis with perforation in the past. She had resection and ostomy in the past. Lung cancer surgery back in 2006. She had skin cancer in the past. Abdominal aortic aneurysm operation in the past. She had stents in the legs in the past. MEDICATIONS: Albuterol, ProAir, Alendronate, Anoro Ellipta, carvedilol, hydralazine, Barbie's Magic Solution, [place], potassium chloride, rosuvastatin. She had been on some Merrem. ALLERGIES: IODINE. PENICILLIN. SULFA. FAMILY HISTORY: Negative in regards to this problem. SOCIAL HISTORY: Former smoker. No alcohol abuse. REVIEW OF SYSTEMS: Fourteen systems reviewed. She is quite weak, has trouble walking. She is in a wheelchair apparently. Her platelets were okay back in May. She denies any current blood thinner use. PHYSICAL EXAMINATION: GENERAL: A chronically ill female. HEENT: Sclerae nonicteric. NECK: No JVD. CHEST: She has a port eroded through her skin up by her clavicular area and the port has some eschar down the right chest area. Otherwise chest equal excursion. CVS: Regular rate and rhythm. ABDOMEN: Soft, nondistended. EXTREMITIES: No cyanosis. She has some trace edema. NEURO: Alert, moving extremities symmetrically. She is quite weak. PSYCH: Appropriate mood and affect. IMPRESSION: Stage IV lung carcinoma. She has an infected port that needs removed. She will eventually need another one but feel it would be better to take the other one out now and replace a new one next week. General risk of bleeding or infection, risk of wound complications regarding port removal and regarding port placement at a later date, general risk of bleeding or infection, thrombosis, pneumothorax, risk of aches and pains, risk of arterial injury, remote risk of major venous tear, risk of cardiopulmonary event but not limited to, consent obtained. Will proceed with removal of infected port at this time, placement of a new port next week or later date.
[2021-06-15] MEDS ORDERED: SUBLIMAZE 100 MCG/2 ML ONE (13:58)
[2021-06-15] MEDS ORDERED: Zofran 4 MG/2 ML VIAL ONE (16:11)
[2021-06-15] MEDS ORDERED: Zofran 4 MG/2 ML VIAL IV ONE (16:15)
[2021-06-15] MEDS ORDERED: Zofran 4 MG/2 ML VIAL IV STA (16:19)
[2021-06-15 16:58] VITALS: O2SAT 90
[2021-06-15 17:00] VITALS: BP 110/72; PULSE 103
--- NOTE | 2021-06-16 08:47 | OP ---
SURGERY DATE/TIME: 06/15/2021 1318 PREOPERATIVE DIAGNOSIS: Stage IV nonsmall cell carcinoma of lung, infected right chest Port-A-Cath placed previously by interventional radiology. POSTOPERATIVE DIAGNOSIS: Stage IV nonsmall cell carcinoma of lung, infected right chest Port-A-Cath placed previously by interventional radiology. PROCEDURE: Removal of tunneled Port-A-Cath right chest. SURGEON: Dr. Eligio Foote. ANESTHESIA: MAC. ESTIMATED BLOOD LOSS: Minimal. INDICATIONS: As noted above. Risks and benefits explained in detail and not limited to and consent obtained. DESCRIPTION OF PROCEDURE AND FINDINGS: The patient is taken to the operating room. MAC anesthesia was introduced. Her neck and chest prepped and draped in usual sterile fashion. After official time out and no disagreement with planned procedure, as the skin was all bad over this eroded, infected port dissection was carried out around this area deep to normal appearing subcutaneous tissue beneath carefully mobilized up to where the catheter was pointing up towards the cannulation site this was able to be completely pulled free and passed off. It was sent for culture the port and catheter. The tunnel track was secured with 3-0 Vicryl. Because of the infection it was elected to mostly close the wound with interrupted 3-0 Vicryl in the deep and superficial subcu. A small Iodoform packing placed in the center port to be gradually advanced out starting on postoperative day two and 1 cm daily until out. Otherwise, the skin was closed with 4-0 Vicryl in interrupted fashion. Steri-Strips and sterile dressing applied. The patient tolerated the procedure well. There were no immediate complications. Findings discussed with the family out in the waiting area.
== END 2021-06-15 17:05 | disposition home or self-care (01) ==
LOC: INFUSION 09:44 → SDC 09:44 → EDSTATUS 09:57 → SDC 17:05
PROVIDERS: ATTEND Surgery
DX: T80.212A Local infection due to central venous catheter, initial encounter (principal); C34.90 Malignant neoplasm of unspecified part of unspecified bronchus or lung; C79.51 Secondary malignant neoplasm of bone; Z79.899 Other long term (current) drug therapy
CPT/HCPCS: 99100; J2250; J2405; J3010

== ENCOUNTER 2021-06-25 11:13 | Inpatient (IN) | payer MEDICARE ==
--- NOTE | 2021-06-25 12:52 | XRAY ---
Indication: Short of breath. Comparison: January 05, 2021. Portable chest demonstrates stable right suprahilar postsurgical changes and a few left lung calcified granulomas. No focal infiltrate, consolidation, or large effusion. Heart not enlarged with interval Port-A-Cath removal. Bony thorax intact again with osteopenia, mild degenerative changes, and minimal dextroscoliosis. Impression: Nonacute chest with chronic features.
[2021-06-25 12:57] LABS: Hematocrit 37.3 % (35-47); Hemoglobin 11.5 gm/dl (12.0-16.0); Mean Cell Volume 89.4 fl (78-100); Mean Corpuscular Hemoglobin 27.6 pg (26-32); Mean Corpuscular Hgb Concent. 30.8 g/dl (32-36); Mean Platelet Volume 9.7 fl (7.5-11.0); Platelet Count 189 K/mm3 (150-450); Red Blood Count 4.17 M/mm3 (4.1-5.4); Red Cell Distribution Width 23.9 % (11.5-14.0); White Blood Count 10.5 K/mm3 (4.0-10.5)
[2021-06-25 13:01] LABS: ALBUMIN 3.7 g/dL (3.5-5.0); ANION GAP 19.5 MEQ/L (5-15); BILIRUBIN,TOTAL 1.1 mg/dL (0.2-1.3); Calcium 10.2 mg/dL (8.4-10.2); Creatinine 1 1.07 mg/dL (0.52-1.04); EST GLOMERULAR FILTRATION RATE 52.7 ML/MIN; Potassium 3.9 mmol/L (3.5-5.1); Total Protein 7.4 g/dL (6.3-8.2)
--- NOTE | 2021-06-25 13:07 | ERPHSYRPT ---
- History of Present Illness Time Seen by Provider: 06/25/21 12:05 Source: patient Exam Limitations: no limitations Patient Subjective Stated Complaint: pt reports shortness of breath and BLE swelling for approx 2 weeks. also reports tailbone, left hip pain, states her visiting nurse removed a pressure pad from her tailbone placed at [facility] and she believes it created a wound. Triage Nursing Assessment: pt is aox3, pupils perrl, afebrile, mucous membranes very dry, pt short of breath, lung sounds are diminished, radial pulses strong, pt skin pale warm dry. dressing in place over right chest, colostomy present to the left abdomen, stoma appears red, no leaking noted, pitting edema to BLE, skin intact. Physician History: This is a 80-year-old white female patient with no primary care physician but has several different specialist for various conditions and medical problems. She has worsening shortness of breath and swelling in her bilateral lower extremities. The worsening of her symptoms have recurred over the last [address] Catalan for pulmonology issues, she sees Dr. Reeves/Alvaro for her cardiac issues. She sees Dr. Kerns as her nephrology specialist. And the patient sees Dr. Hatch for her oncology issues (lung cancer). Patient has an end colostomy for a relatively recent bowel obstruction surgery. The patient has a history of chronic renal disease, CHF and COPD. Patient told me that she does not undergo dialysis and she does not wear home oxygen. Patient also has a significant decubitus ulcer. Timing/Duration: day(s) (Worsening symptoms over the last few days), worse Activities at Onset: none Severity of Dyspnea-Max: moderate Severity of Dyspnea-Current: moderate Possible Cause: occasional episodes Modifying Factors: Improves With: activity Associated Symptoms: weakness, ankle swelling, No cough, No chest pain/discomfort, No fever, No calf pain, No painful breathing, No productive cough Allergies/Adverse Reactions: Iodinated Contrast Media [Iodinated Contrast Media - IV Dye] Allergy (Intermediate, Verified 06/25/21 11:41) dt only one kidney penicillin G Allergy (Mild, Verified 06/25/21 11:41) Swelling Sulfa (Sulfonamide Antibiotics) [Sulfa(Sulfonamide Antibiotics)] Allergy (Mild, Verified 06/25/21 11:41) Hives Home Medications: Carvedilol 3.125 mg [Coreg 3.125 MG] 6.25 mg PO BID 09/13/14 [History] Rosuvastatin Calcium [Crestor] 10 mg PO DAILY 10/29/18 [History] Albuterol 2.5 mg/3 ml Neb [Proventil 2.5 mg/3 ml Neb] 1 ml QID PRN 06/15/21 [History] Albuterol 8 gm Mdi Hfa [Ventolin Hfa MDI] 8 gm IH QID PRN MDD 1 06/15/21 [History] Furosemide 20 mg [Lasix 20 mg] 20 mg PO DAILY 06/15/21 [History] Potassium Chloride [Klor-Con] 20 meq PO DAILY 06/15/21 [History] Hx Tetanus, Diphtheria Vaccination/Date Given: Yes Hx Influenza Vaccination/Date Given: Yes Hx Pneumococcal Vaccination/Date Given: Yes Immunizations Up to Date: Yes Travel Risk - International Travel Have you traveled outside of the country in past 3 weeks: No - Coronavirus Screening Are you exhibiting any of the following symptoms?: No Symptoms: Shortness of Breath Close contact with a COVID-19 positive Pt in past 14-21 Days: No - Vaccine Status Have you recieved a Covid-19 vaccination: No - Review of Systems Constitutional: Weakness Eyes: No Symptoms Ears, Nose, & Throat: No Symptoms Respiratory: Dyspnea, No Cough, No Stridor, No Wheezing Cardiac: Edema, No Chest Pain Abdominal/Gastrointestinal: No Symptoms Genitourinary Symptoms: No Symptoms Musculoskeletal: No Symptoms Skin: No Symptoms Neurological: No Symptoms Psychological: No Symptoms Endocrine: No Symptoms Hematologic/Lymphatic: No Symptoms Immunological/Allergic: No Symptoms All Other Systems: Reviewed and Negative - Past Medical History Pertinent Past Medical History: Yes Neurological History: No Pertinent History ENT History: Cataracts Cardiac History: High Cholesterol, Hypertension Respiratory History: COPD, Lung Cancer, Pneumonia Endocrine Medical History: No Pertinent History Musculoskeletal History: Arthritis GI Medical History: Diverticulitis, Hemorrhoids, Other History: Dialysis, Renal Disease Psycho-Social History: No Pertinent History Female Reproductive Disorders: No Pertinent History Other Medical History: MULTIPLE SKIN CANCERS, pt states she "only has 1 kidney", 1 kidney functions at 36% and the other at 5% (per pt). Bowel obstruction. port removal - Past Surgical History Past Surgical History: Yes Neuro Surgical History: No Pertinent History Cardiac: Other Respiratory: No Pertinent History Gastrointestinal: Colon Resection, Other Genitourinary: No Pertinent History Musculoskeletal: No Pertinent History Female Surgical History: Lumpectomy Other Surgical History: TRIPLE A REPAIR. BRUSH BIOPSY. COLONOSCOPY. MULTIPLE SKIN CANCERS REMOVED. STENTS IN BILAT LEGS,Port placed in Oct 2020 - Social History Smoking Status: Former smoker How long have you smoked: 38 Exposure to second hand smoke: No Alcohol Use: None Drug Use: none Patient Lives Alone: Yes Significant Family History: cancer - Female History Hx Now: No - Nursing Vital Signs Nursing Vital Signs: Initial Vital Signs Temperature 98.1 F 06/25/21 11:15 Pulse Rate 103 H 06/25/21 11:15 Respiratory Rate 24 06/25/21 11:15 Blood Pressure 119/61 06/25/21 11:15 O2 Sat by Pulse Oximetry 91 L 06/25/21 11:15 Pain Scale Pain Intensity 8 - Physical Exam General Appearance: no apparent distress, alert, anxiety Eye Exam: PERRL/EOMI, eyes nml inspection Ears, Nose, Throat Exam: hearing grossly normal Neck Exam: normal inspection, non-tender, supple, full range of motion Respiratory Exam: normal breath sounds, lungs clear, airway intact, No chest tenderness, No respiratory distress Cardiovascular/Chest Exam: normal heart sounds, regular rate/rhythm, normal peripheral pulses Abdominal/Gastrointestinal Exam: soft, normal bowel sounds, No tenderness Rectal Exam: not done Extremity Exam: normal range of motion, pedal edema (Bilateral feet and ankles) Neurologic Exam: alert, oriented x 3, cooperative, silverware washer II-XII nml as tested, normal mood/affect, nml cerebellar function, nml station & gait, sensation nml Skin Exam: decubitus (Buttock) Lymphatic Exam: No adenopathy SpO2 Interpretation: borderline oxygenation SpO2: 91 O2 Delivery: Room Air - Course Nursing assessment & vital signs reviewed: Yes EKG Interpreted by Me: RATE (91), Sinus Rhythm, NORMAL AXIS, NORMAL INTERVALS, NORMAL QRS, Non-specific ST Changes, Other (No acute ischemic changes. When compared to EKG dated 10/22/2020 there is new nonspecific T wave abnormalities in the inferior leads.) Ordered Tests: Active Orders 24 hr Category Date Time Status Cutter Barrel Drum STAT Care 06/25/21 12:15 Active EKG-ER Only STAT Care 06/25/21 12:14 Active IV Insertion STAT Care 06/25/21 12:14 Active Pulse Oximetry (ED) STAT Care 06/25/21 12:14 Active Pulse Oximetry (ED) STAT Care 06/25/21 12:14 Active CHEST 1 VIEW (PORTABLE) Stat Exams 06/25/21 12:15 Completed CBC W DIFF Stat Lab 06/25/21 12:35 Completed CMP Stat Lab 06/25/21 12:35 Completed Lactic Acid Stat Lab 06/25/21 12:35 Completed Lactic Acid Stat Lab 06/25/21 14:38 Completed Manual Differential NC Stat Lab 06/25/21 12:35 Completed NT PRO BNP Stat Lab 06/25/21 12:35 Completed TROPONIN Q3H Lab 06/25/21 12:35 Completed TROPONIN Q3H Lab 06/25/21 15:10 Completed TROPONIN Q3H Lab 06/25/21 18:15 Ordered TROPONIN Q3H Lab 06/25/21 21:15 Ordered TROPONIN Q3H Lab 06/26/21 00:15 Ordered UA W/RFX UR CULTURE Stat Lab 06/25/21 16:29 Ordered Medication Summary Generic Name Dose Route Start Last Admin Trade Name Freq PRN Reason Stop Dose Admin Sodium Chloride 1,000 mls @ 999 mls/hr 06/25/21 15:51 06/25/21 16:11 Sodium Chloride 0.9% 1000 Ml IV 06/25/21 16:51 999 mls/hr .Q1H1M STA Administration Discontinued Medications Generic Name Dose Route Start Last Admin Trade Name Freq PRN Reason Stop Dose Admin Furosemide 40 mg 06/25/21 15:58 06/25/21 16:29 Lasix 40 Mg/4 Ml IV 06/25/21 15:59 40 mg STAT ONE Administration Furosemide Confirm 06/25/21 16:08 Lasix 40 Mg/4 Ml Administered 06/25/21 16:09 Dose 40 mg .ROUTE .STK-MED ONE Sodium Chloride Confirm 06/25/21 16:08 Sodium Chloride 0.9% 1000 Ml Administered 06/25/21 16:09 Dose 1,000 mls @ ud .ROUTE .STK-MED ONE Morphine Sulfate 2 mg 06/25/21 15:41 06/25/21 16:12 Morphine Sulfate 2 Mg Inj IV 06/25/21 15:42 2 mg STAT ONE Administration Morphine Sulfate Confirm 06/25/21 16:08 Morphine Sulfate 2 Mg Inj Administered 06/25/21 16:09 Dose 2 mg .ROUTE .STK-MED ONE Ondansetron HCl 4 mg 06/25/21 15:41 06/25/21 16:11 Zofran 4 Mg/2 Ml Vial IV 06/25/21 15:42 4 mg STAT ONE Administration Ondansetron HCl Confirm 06/25/21 16:07 Zofran 4 Mg/2 Ml Vial Administered 06/25/21 16:08 Dose 4 mg .ROUTE .STK-MED ONE Lab/Rad Data: Laboratory Result Diagrams 06/25/21 12:35 06/25/21 12:35 Laboratory Results 06/25/21 06/25/21 06/25/21 Range/Units 15:10 14:38 12:35 WBC (4.0-10.5) K/mm3 RBC (4.1-5.4) M/mm3 Hgb (12.0-16.0) gm/dl Hct (35-47) % MCV (78-100) fl MCH (26-32) pg MCHC (32-36) g/dl RDW (11.5-14.0) % Plt Count (150-450) K/mm3 MPV (7.5-11.0) fl Segmented Neutrophils (36.0-66.0) % Lymphocytes (Manual) (24-44) % Monocytes (Manual) (0.0-12.0) % Eosinophils (Manual) (0.00-3.0) % Platelet Estimate (NORMAL) RBC Morphology Anisocytosis Sodium (137-145) mmol/L Potassium (3.5-5.1) mmol/L Chloride (98-107) mmol/L Carbon Dioxide (22-30) mmol/L Anion Gap (5-15) MEQ/L BUN (7-17) mg/dL Creatinine (0.52-1.04) mg/dL Estimated GFR ML/MIN Glucose (74-106) mg/dL Lactic Acid 2.8 H (0.4-2.0) Calcium (8.4-10.2) mg/dL Total Bilirubin (0.2-1.3) mg/dL AST (14-36) U/L ALT (0-35) U/L Alkaline Phosphatase (38-126) U/L Troponin I 0.014 0.016 (0.000-0.034) ng/mL NT-Pro-B Natriuret Pep (0-1800) pg/mL Serum Total Protein (6.3-8.2) g/dL Albumin (3.5-5.0) g/dL 06/25/21 06/25/21 06/25/21 Range/Units 12:35 12:35 12:35 WBC 10.5 (4.0-10.5) K/mm3 RBC 4.17 (4.1-5.4) M/mm3 Hgb 11.5 L (12.0-16.0) gm/dl Hct 37.3 (35-47) % MCV 89.4 (78-100) fl MCH 27.6 (26-32) pg MCHC 30.8 L (32-36) g/dl RDW 23.9 H (11.5-14.0) % Plt Count 189 (150-450) K/mm3 MPV 9.7 (7.5-11.0) fl Segmented Neutrophils 83 H (36.0-66.0) % Lymphocytes (Manual) 12 L (24-44) % Monocytes (Manual) 4 (0.0-12.0) % Eosinophils (Manual) 1 (0.00-3.0) % Platelet Estimate NORMAL (NORMAL) RBC Morphology ABNORMAL Anisocytosis 2+ Sodium 135 L (137-145) mmol/L Potassium 3.9 (3.5-5.1) mmol/L Chloride 94 L (98-107) mmol/L Carbon Dioxide 25 (22-30) mmol/L Anion Gap 19.5 H (5-15) MEQ/L BUN 23 H (7-17) mg/dL Creatinine 1.07 H (0.52-1.04) mg/dL Estimated GFR 52.7 ML/MIN Glucose 73 L (74-106) mg/dL Lactic Acid 2.9 H (0.4-2.0) Calcium 10.2 (8.4-10.2) mg/dL Total Bilirubin 1.10 (0.2-1.3) mg/dL AST 225 H (14-36) U/L ALT 17 (0-35) U/L Alkaline Phosphatase 812 H (38-126) U/L Troponin I (0.000-0.034) ng/mL NT-Pro-B Natriuret Pep 7320 H (0-1800) pg/mL Serum Total Protein 7.4 (6.3-8.2) g/dL Albumin 3.7 (3.5-5.0) g/dL - Progress Progress: improved, re-examined Air Movement: good Progress Note: 06/25/21 16:35 Chest x-ray shows no acute cardiopulmonary process. Medical decision making: This patient desires to stay here at [facility] if possible. She does not have a primary care physician. Dr. Garcia Pizano is covering for unassigned patients. I reviewed the patient history, condition, chest x-ray results as well as results of the patient's EKG and lab reports. Patient also has a significant decubitus ulcer. Patient is scheduled to have a portacatheter placed early next week by Dr. Carvajal. Dr. Carvajal has performed general surgery on this patient and they prefer to have him perform a portacatheter placement. Jerica and I feel that the patient is stable enough to be admitted into our facility. She prefers to be admitted and not be discharged to home. Patient has evidence of congestive heart failure clinically and by laboratory report. She also has a slightly elevated lactic acid. We are going to provide the patient with gentle rehydration intravenously and also provide the patient with Lasix to help relieve some of her congestive heart failure symptoms. We are awaiting the COVID-19 swab results and results of the patient's urinalysis. We will also obtain a wound care nurse consultation. Blood Culture(s) Obtained: No Antibiotics given: No Discussed with : Daria Counseled pt/family regarding: lab results, diagnosis, rad results - Departure Departure Disposition: In-patient Admission Clinical Impression: Congestive heart failure, Pedal edema, Decubitus ulcers Condition: Stable Critical Care Time: No Referrals: DOCTOR,NO FAMILY [Primary Care Provider] - Instructions: Heart Failure
[2021-06-25] MEDS ORDERED: MORPHINE SULFATE 2 MG INJ IV ONE ×2 (15:41→17:57)
[2021-06-25] MEDS ORDERED: Zofran 4 MG/2 ML VIAL IV ONE (15:41)
[2021-06-25] MEDS ORDERED: Sodium Chloride 0.9% 1000 ML 1,000 ML IV STA (15:51)
[2021-06-25] MEDS ORDERED: Lasix 40 MG/4 ML IV ONE (15:58)
[2021-06-25] MEDS ORDERED: Zofran 4 MG/2 ML VIAL ONE (16:07)
[2021-06-25 16:08] LABS: Eosinophil 1 % (0.00-3.0); Lymphocytes 12 % (24-44); Monocyte 4 % (0.0-12.0); Neutrophils 83 % (36.0-66.0); Total Cells Counted 100
[2021-06-25] MEDS ORDERED: Lasix 40 MG/4 ML ONE (16:08)
[2021-06-25] MEDS ORDERED: MORPHINE SULFATE 2 MG INJ ONE ×2 (16:08→18:16)
[2021-06-25] MEDS ORDERED: Sodium Chloride 0.9% 1000 ML 1,000 ML ONE (16:08)
[2021-06-25 16:09] LABS: ANISOCYTOSIS 2+; Platelet Estimate NORMAL (NORMAL)
[2021-06-25 16:59] LABS: Appearance SLIGHTLY CLOUDY (CLEAR); Bilirubin NEGATIVE (NEGATIVE); Blood NEGATIVE Ery/ul (0-5); Glucose NEGATIVE (NEGATIVE); Ketones TRACE (NEGATIVE); Leukocyte Esterase NEGATIVE (NEGATIVE); Mucus SLIGHT /HPF (NEGATIVE); Nitrite NEGATIVE (NEGATIVE); Protein,Urine Dip 30 (Negative); Specific Gravity 1.019 (1.005-1.025); Urobilinogen NEGATIVE mg/dL (0-1); WBC 0-2 /HPF (0-5)
[2021-06-25] MEDS ORDERED: TYLENOL 325 MG PO PRN ×2 (18:45→22:15)
[2021-06-25] MEDS ORDERED: Sodium Chloride 0.9% 1000 ML 1,000 ML IV SCH (18:45)
[2021-06-25] MEDS ORDERED: Lasix 20 MG/2 ML IV ONE (23:00)
[2021-06-25] MEDS: xanAX 0.25 MG PO SCH (23:39)
[2021-06-26 02:21] LABS: ALBUMIN 3.3 g/dL (3.5-5.0); Calcium 9.8 mg/dL (8.4-10.2); Creatinine 1 1.19 mg/dL (0.52-1.04); EST GLOMERULAR FILTRATION RATE 46.6 ML/MIN; Potassium 4.3 mmol/L (3.5-5.1); Total Protein 6.8 g/dL (6.3-8.2)
[2021-06-26 02:31] LABS: Hematocrit 33.1 % (35-47); Hemoglobin 10.1 gm/dl (12.0-16.0); Mean Cell Volume 90.4 fl (78-100); Mean Corpuscular Hemoglobin 27.6 pg (26-32); Mean Corpuscular Hgb Concent. 30.5 g/dl (32-36); Mean Platelet Volume 9.8 fl (7.5-11.0); Platelet Count 182 K/mm3 (150-450); Red Blood Count 3.66 M/mm3 (4.1-5.4); Red Cell Distribution Width 23.8 % (11.5-14.0); White Blood Count 10.5 K/mm3 (4.0-10.5)
[2021-06-26 04:29] LABS: BAND 10 % (0.0-2.0); Eosinophil 3 % (0.00-3.0); Lymphocytes 13 % (24-44); Metamyelocyte 2 %; Monocyte 5 % (0.0-12.0); Neutrophils 67 % (36.0-66.0); Total Cells Counted 100
[2021-06-26 04:30] LABS: ANISOCYTOSIS 1+; Platelet Estimate NORMAL (NORMAL); Polychromasia 1+
[2021-06-26] MEDS ORDERED: DUONEB 0.5-3 MG/3 ml Neb IH ONE (07:03)
[2021-06-26] MEDS: DUONEB 0.5-3 MG/3 ml Neb IH SCH (07:25)
--- NOTE | 2021-06-26 10:20 | HP ---
CHIEF COMPLAINT: Shortness of breath. HISTORY OF PRESENT ILLNESS: The patient is a 80 year-old white female who has very significant co-morbid problems. She previously had a colectomy and has a colostomy. She is also being seen by Dr. Catalan and an oncologist for apparently a lung cancer issue. The patient had apparently stopped taking her Lasix and developed leg swelling and shortness of breath. She was seen in the emergency room and diagnosed with heart failure exacerbation and was given IV Lasix for which she produced 1700 cc of fluid. PAST MEDICAL/SURGICAL HISTORY: Again significant for previous colectomy and colostomy in place. She recently had a port removed and will be replaced apparently on Tuesday of this next coming week as she is receiving chemotherapy for lung cancer issue. The patient previously also had abdominal aortic aneurysm repair, multiple skin cancers removed, bilateral stents in the legs. She apparently has also seen a industrial plant custodian. CURRENT HOME MEDICATIONS: Carvedilol 3.125 mg b.i.d., Crestor 10 mg a day, Albuterol PRN four times a day as needed for shortness of breath, Lasix 20 mg a day which she reports she has not been taking. Potassium 20 mEq daily as well. ALLERGIES: IODINATED CONTRAST. PENICILLIN. SULFA. PHYSICAL EXAMINATION: Vital signs on admission showed temperature 98.1F, pulse 102, respiratory rate 24, blood pressure 119/61. O2 saturation 91%. HEENT: Normocephalic, atraumatic. Pupils equal round reactive to light. Extraocular movements intact. The patient is losing her hair. Oropharynx was dry. NECK: Supple without lymphadenopathy, thyromegaly or JVD. CHEST: Reveals a bandage over the right chest area where she had the port removed recently. Her chest is essentially clear to auscultation. HEART: Regular rate and rhythm without murmurs, rubs or gallops heard. ABDOMEN: Diffusely tender and reveals the colostomy apparently with a bag on and intact. EXTREMITIES: Without significant cyanosis or clubbing. There is however lower extremity edema noted. NEUROLOGIC: The patient is alert and oriented x3. No focal deficits were noted. LAB DATA AND TESTS: The patient's laboratory studies in the emergency room revealed lactic acid of 2.9. White count 10,500, hemoglobin 11.5, PLT count 189,000. However, she did have a left shift with 10 bands and 67 polys. The patient was not cultured in the emergency room and we asked them to do so here presently with blood cultures and urine cultures to be sent. Will check procalcitonin level as well as the patient which may not be able to due to infective response to infection with her overall health. Troponin was 0.016. Sugar 73, BUN 23, creatinine 1.07, sodium slightly low at 135, total protein was okay at 7.4. She had 812 alkaline phosphatase likely secondary to her metastatic disease process. Her ProBNP was 7320. Repeat lactic acid was 2.8. Troponin was 0.014. She tested COVID negative. Her chest x-ray showed nonacute with chronic features. ASSESSMENT: A patient with probable exacerbation of congestive heart failure due to not taking her Lasix. However she had a good response to IV Lasix. The patient's overall health is quite poor. She appears to be at end of life although she is still treating aggressively the lung cancer with Dr. Alex Catalan being her benzene operator. She also has a fishing line winding machine operator involved in her care as well as an oncologist and industrial plant custodian but she has no primary care provider. The patient requested to be admitted here at our facility. Unfortunately none of her specialists will see her here. We have treated her with IV Lasix and resolved her heart failure issue and hopefully being able to return home soon and should she need so unfortunately with COVID they are not accepting patient's at [facility] where the patient's substance care providers are.
[2021-06-26] MEDS: COREG 12.5 MG PO SCH (10:42)
[2021-06-26] MEDS: xanAX 0.25 MG PO SCH (10:45)
[2021-06-26] MEDS: PERCOCET TABLET 5/325MG PO PRN ×2 (11:23→18:18)
--- NOTE | 2021-06-26 15:08 | XRAY ---
Indication: Bilateral leg pain. Two-dimensional sonogram and color Doppler imaging of the major venous vessels of the left and right leg performed. Comparison: None No thrombus seen in the examined deep venous vessels of the left and right leg including greater saphenous vein. Veins demonstrate normal compressibility. Venous waveforms are normal with and without augmentation. Impression: Left and right legs negative for DVT.
[2021-06-26] MEDS: ROCEPHIN 1 Gm-D5w 50 ml Bag** 1 G/50 ML IVPB IV SCH (17:22)
[2021-06-26] MEDS ORDERED: ENOXAPARIN SODIUM SQ SCH (18:00)
[2021-06-26] MEDS: Zithromax 500 MG/ 250 ML NaCl Premix 500 MG/250 ML IVPB IV SCH (18:19)
[2021-06-26] MEDS ORDERED: PROVENTIL 2.5 MG/3 ML NEB IH PRN (19:36)
[2021-06-27] MEDS: COREG 12.5 MG PO SCH ×2 (02:20→09:06)
[2021-06-27] MEDS: LASIX 20 MG PO SCH ×2 (02:21→09:06)
[2021-06-27] MEDS: Klor Con 10 MEQ PO SCH ×2 (02:21→09:06)
[2021-06-27] MEDS: xanAX 0.25 MG PO SCH ×2 (02:21→09:06)
[2021-06-27] MEDS: PERCOCET TABLET 5/325MG PO PRN ×2 (02:38→12:19)
[2021-06-27 06:40] LABS: Hematocrit 31.9 % (35-47); Hemoglobin 9.7 gm/dl (12.0-16.0); Mean Cell Volume 91.7 fl (78-100); Mean Corpuscular Hemoglobin 27.9 pg (26-32); Mean Corpuscular Hgb Concent. 30.4 g/dl (32-36); Mean Platelet Volume 10.4 fl (7.5-11.0); Platelet Count 170 K/mm3 (150-450); Red Blood Count 3.48 M/mm3 (4.1-5.4); Red Cell Distribution Width 24.1 % (11.5-14.0); White Blood Count 9.5 K/mm3 (4.0-10.5)
[2021-06-27 06:49] LABS: ANION GAP 11.9 MEQ/L (5-15); BILIRUBIN,TOTAL 0.7 mg/dL (0.2-1.3); Calcium 9.5 mg/dL (8.4-10.2); Creatinine 1 1.09 mg/dL (0.52-1.04); EST GLOMERULAR FILTRATION RATE 51.6 ML/MIN; Potassium 3.9 mmol/L (3.5-5.1); Total Protein 6.2 g/dL (6.3-8.2)
[2021-06-27] MEDS ORDERED: VENTOLIN COMMON CANISTER IH PRN (07:15)
[2021-06-27] MEDS: DUONEB 0.5-3 MG/3 ml Neb IH SCH (07:44)
[2021-06-27 09:06] LABS: Lymphocytes 8 % (24-44); Monocyte 4 % (0.0-12.0); Neutrophils 88 % (36.0-66.0); Total Cells Counted 100
[2021-06-27] MEDS: ENOXAPARIN SODIUM SQ SCH (09:06)
[2021-06-27 09:07] LABS: ANISOCYTOSIS 1+; Platelet Estimate NORMAL (NORMAL); Poikilocytosis 1+; Polychromasia 1+
[2021-06-27 09:08] LABS: Basophilic Stippling 1+
[2021-06-27] MEDS: Zithromax 500 MG/ 250 ML NaCl Premix 500 MG/250 ML IVPB IV SCH (09:10)
[2021-06-27] MEDS: ROCEPHIN 1 Gm-D5w 50 ml Bag** 1 G/50 ML IVPB IV SCH (09:10)
--- NOTE | 2021-06-27 10:57 | PCM.NOTE ---
Date and Time: 06/27/21 1056 Subjective Assessment: patient is very sleep this morning but her breathing is improved. she does not wear oxygen at home Objective Exam General Appearance: no apparent distress, alert, thin, other (frail and chronically ill appearing) Respiratory Exam: rhonchi, No respiratory distress Cardiovascular Exam: regular rate/rhythm, normal heart sounds Gastrointestinal/Abdomen Exam: soft, No tenderness, No mass OBJECTIVE DATA Vital Signs: Vital Signs - 24 hr Temp Pulse Resp BP Pulse Ox 06/27/21 07:47 77 16 98 06/27/21 07:00 98.5 F 80 12 136/63 94 L 06/27/21 03:30 97.9 F 80 16 114/51 98 06/26/21 23:43 98.4 F 89 16 111/51 98 06/26/21 21:47 97.1 F 06/26/21 21:40 76 18 95 06/26/21 21:00 97.6 F 76 18 101/49 99 06/26/21 19:55 97.6 F 76 18 107/49 95 06/26/21 16:00 97.1 F 80 16 101/49 89 L 06/26/21 12:00 97.9 F 75 16 103/49 95 Pain Assessment - Last Documented Pain Intensity 0 Pain Scale Used 0-10 Pain Scale Intake and Output: Intake & Output 06/24/21 06/25/21 06/26/21 06/27/21 11:59 11:59 11:59 11:59 Intake Total 932 800 Output Total 1700 275 Balance -768 525 Weight 43.998 kg 44.1 kg Lab Results: Lab Results-Last 24 Hours 06/27/21 06/27/21 06/27/21 Range/Units 05:40 05:40 05:40 WBC 9.5 (4.0-10.5) K/mm3 RBC 3.48 L (4.1-5.4) M/mm3 Hgb 9.7 L (12.0-16.0) gm/dl Hct 31.9 L (35-47) % MCV 91.7 (78-100) fl MCH 27.9 (26-32) pg MCHC 30.4 L (32-36) g/dl RDW 24.1 H (11.5-14.0) % Plt Count 170 (150-450) K/mm3 MPV 10.4 (7.5-11.0) fl Segmented Neutrophils 88 H (36.0-66.0) % Lymphocytes (Manual) 8 L (24-44) % Monocytes (Manual) 4 (0.0-12.0) % Platelet Estimate NORMAL (NORMAL) RBC Morphology ABNORMAL Polychromasia 1+ Poikilocytosis 1+ Basophilic Stippling 1+ Anisocytosis 1+ Sodium 135 L (137-145) mmol/L Potassium 3.9 (3.5-5.1) mmol/L Chloride 98 (98-107) mmol/L Carbon Dioxide 29 (22-30) mmol/L Anion Gap 11.9 (5-15) MEQ/L BUN 21 H (7-17) mg/dL Creatinine 1.09 H (0.52-1.04) mg/dL Estimated GFR 51.6 ML/MIN Glucose 70 L (74-106) mg/dL Calcium 9.5 (8.4-10.2) mg/dL Total Bilirubin 0.70 (0.2-1.3) mg/dL AST 210 H (14-36) U/L ALT 15 (0-35) U/L Alkaline Phosphatase 714 H (38-126) U/L Serum Total Protein 6.2 L (6.3-8.2) g/dL Albumin 3.0 L (3.5-5.0) g/dL Procalcitonin 1.010 H (0.030-0.080) ng/mL Radiology Exams: Radiology Procedures Category Date Time Status CHEST 1 VIEW (PORTABLE) Stat Exams 06/25/21 12:15 Completed VENOUS BILATERAL EXTREMITY [US] Routine Exams 06/26/21 15:04 Completed Assessment/Plan (1) Bandemia Current Visit: Yes Status: Acute Assessment & Plan: continue rocephin and zithromax, slight decrease in procalcitonin noted, no bands on diff today Code(s): D72.825 - BANDEMIA (2) Congestive heart failure Current Visit: Yes Status: Acute Code(s): I50.9 - HEART FAILURE, UNSPECIFIED (3) COPD (chronic obstructive pulmonary disease) Current Visit: No Status: Chronic
[2021-06-28] MEDS: PERCOCET TABLET 5/325MG PO PRN ×3 (01:35→15:09)
[2021-06-28] MEDS: COREG 12.5 MG PO SCH ×2 (02:31→09:16)
[2021-06-28] MEDS: xanAX 0.25 MG PO SCH ×4 (02:33→21:23)
[2021-06-28 06:39] LABS: Hematocrit 30.4 % (35-47); Mean Corpuscular Hemoglobin 27.5 pg (26-32); Mean Corpuscular Hgb Concent. 29.6 g/dl (32-36); Mean Platelet Volume 10.3 fl (7.5-11.0); Platelet Count 167 K/mm3 (150-450); Red Blood Count 3.27 M/mm3 (4.1-5.4); Red Cell Distribution Width 24.1 % (11.5-14.0); White Blood Count 9.7 K/mm3 (4.0-10.5)
[2021-06-28 07:06] LABS: ALBUMIN 2.9 g/dL (3.5-5.0); ALKALINE PHOSPHATASE 695 U/L (38-126); ANION GAP 9.9 MEQ/L (5-15); BLOOD UREA NITROGEN 20 mg/dL (7-17); CHLORIDE 99 mmol/L (98-107); Calcium 9.4 mg/dL (8.4-10.2); Carbon Dioxide 31 mmol/L (22-30); Creatinine 1 0.94 mg/dL (0.52-1.04); EST GLOMERULAR FILTRATION RATE > 60.0 ML/MIN; Glucose 82 mg/dL (74-106); Potassium 3.9 mmol/L (3.5-5.1); SGOT/AST 202 U/L (14-36); SGPT/ALT 15 U/L (0-35); SODIUM 137 mmol/L (137-145); Total Protein 6.3 g/dL (6.3-8.2)
[2021-06-28] MEDS: DUONEB 0.5-3 MG/3 ml Neb IH SCH (07:38)
[2021-06-28 08:07] LABS: ANISOCYTOSIS 1+; BAND 2 % (0.0-2.0); Hypochromia 1+; Lymphocytes 12 % (24-44); Monocyte 2 % (0.0-12.0); Neutrophils 84 % (36.0-66.0); Poikilocytosis 1+; Polychromasia 1+; Total Cells Counted 100
[2021-06-28 08:08] LABS: Platelet Estimate NORMAL (NORMAL)
--- NOTE | 2021-06-28 09:09 | PCM.NOTE ---
Date and Time: 06/28/21907 Subjective Assessment: patient c/o legs and bottom hurting, otherwise is stable. she is weak and has a poor appetite Objective Exam General Appearance: thin, other (chronically ill, frail appearing) Respiratory Exam: crackles/rales, No respiratory distress Cardiovascular Exam: regular rate/rhythm, normal heart sounds Gastrointestinal/Abdomen Exam: soft, No tenderness, No mass Extremity Exam: normal inspection, normal range of motion OBJECTIVE DATA Vital Signs: Vital Signs - 24 hr Temp Pulse Resp BP BP Pulse Ox 06/28/21 07:40 97.5 F 80 16 106/51 96 06/28/21 04:15 97.0 F 78 19 103/48 96 06/27/21 23:53 98.4 F 78 22 109/49 94 L 06/27/21 20:26 98 H 22 95 06/27/21 20:00 98.5 F 78 18 100/43 96 06/27/21 15:00 98.7 F 82 14 108/53 94 L 06/27/21 11:00 98.0 F 73 13 93/46 95 Pain Assessment - Last Documented Pain Intensity 9 Pain Scale Used 0-10 Pain Scale Intake and Output: Intake & Output 06/25/21 06/26/21 06/27/21 06/28/21 11:59 11:59 11:59 11:59 Intake Total 932 800 735 Output Total 1700 275 250 Balance -768 525 485 Weight 43.998 kg 44.1 kg Lab Results: Lab Results-Last 24 Hours 06/27/21 06/28/21 06/28/21 Range/Units 05:40 05:45 05:45 WBC 9.7 (4.0-10.5) K/mm3 RBC 3.27 L (4.1-5.4) M/mm3 Hgb 9.0 L (12.0-16.0) gm/dl Hct 30.4 L (35-47) % MCV 93.0 (78-100) fl MCH 27.5 (26-32) pg MCHC 29.6 L (32-36) g/dl RDW 24.1 H (11.5-14.0) % Plt Count 167 (150-450) K/mm3 MPV 10.3 (7.5-11.0) fl Segmented Neutrophils 88 H 84 H (36.0-66.0) % Band Neutrophils 2 (0.0-2.0) % Lymphocytes (Manual) 8 L 12 L (24-44) % Monocytes (Manual) 4 2 (0.0-12.0) % Hypochromia 1+ Platelet Estimate NORMAL NORMAL (NORMAL) RBC Morphology ABNORMAL ABNORMAL Polychromasia 1+ 1+ Poikilocytosis 1+ 1+ Basophilic Stippling 1+ Anisocytosis 1+ 1+ Sodium 137 (137-145) mmol/L Potassium 3.9 (3.5-5.1) mmol/L Chloride 99 (98-107) mmol/L Carbon Dioxide 31 H (22-30) mmol/L Anion Gap 9.9 (5-15) MEQ/L BUN 20 H (7-17) mg/dL Creatinine 0.94 (0.52-1.04) mg/dL Estimated GFR > 60.0 ML/MIN Glucose 82 (74-106) mg/dL Calcium 9.4 (8.4-10.2) mg/dL Total Bilirubin 0.70 (0.2-1.3) mg/dL AST 202 H (14-36) U/L ALT 15 (0-35) U/L Alkaline Phosphatase 695 H (38-126) U/L Serum Total Protein 6.3 (6.3-8.2) g/dL Albumin 2.9 L (3.5-5.0) g/dL Procalcitonin 0.830 H (0.030-0.080) ng/mL Radiology Exams: Radiology Procedures Category Date Time Status VENOUS BILATERAL EXTREMITY [US] Routine Exams 06/26/21 15:04 Completed Assessment/Plan (1) Bandemia Current Visit: Yes Status: Acute Assessment & Plan: improving at this time Code(s): D72.825 - BANDEMIA (2) Congestive heart failure Current Visit: Yes Status: Acute Assessment & Plan: improved, renal function improved as well Code(s): I50.9 - HEART FAILURE, UNSPECIFIED (3) COPD (chronic obstructive pulmonary disease) Current Visit: No Status: Chronic
[2021-06-28] MEDS: ENOXAPARIN SODIUM SQ SCH (09:16)
[2021-06-28] MEDS: ROCEPHIN 1 Gm-D5w 50 ml Bag** 1 G/50 ML IVPB IV SCH (09:17)
[2021-06-28] MEDS: LASIX 20 MG PO SCH (09:17)
[2021-06-28] MEDS: Klor Con 10 MEQ PO SCH (09:17)
[2021-06-28] MEDS: Zithromax 500 MG/ 250 ML NaCl Premix 500 MG/250 ML IVPB IV SCH (10:06)
[2021-06-29 05:37] LABS: Hemoglobin 9.6 gm/dl (12.0-16.0); Mean Cell Volume 93.3 fl (78-100); Mean Platelet Volume 10.1 fl (7.5-11.0); Platelet Count 179 K/mm3 (150-450); Red Blood Count 3.43 M/mm3 (4.1-5.4); Red Cell Distribution Width 24.3 % (11.5-14.0); White Blood Count 9.8 K/mm3 (4.0-10.5)
[2021-06-29 06:07] LABS: ANION GAP 10.1 MEQ/L (5-15); BLOOD UREA NITROGEN 16 mg/dL (7-17); CHLORIDE 97 mmol/L (98-107); Calcium 9.8 mg/dL (8.4-10.2); Carbon Dioxide 31 mmol/L (22-30); Creatinine 1 0.74 mg/dL (0.52-1.04); EST GLOMERULAR FILTRATION RATE > 60.0 ML/MIN; Glucose 83 mg/dL (74-106); PROCALCITONIN 0.724 ng/mL (0.030-0.080); Potassium 3.6 mmol/L (3.5-5.1); SODIUM 135 mmol/L (137-145)
[2021-06-29 06:29] LABS: Lymphocytes 15 % (24-44); Monocyte 2 % (0.0-12.0); Neutrophils 83 % (36.0-66.0); Nucleated Red Blood Cell 1 %; Platelet Estimate NORMAL (NORMAL); Total Cells Counted 100
[2021-06-29] MEDS: DUONEB 0.5-3 MG/3 ml Neb IH SCH (06:50)
[2021-06-29] MEDS ORDERED: Lactated Ringers 1,000 ML IV ONE (06:54)
[2021-06-29] MEDS ORDERED: XYLOCAINE 1% HCL 20 ML MDV IJ ONE (06:54)
[2021-06-29] MEDS ORDERED: SUBLIMAZE 100 MCG/2 ML IV ONE (06:54)
[2021-06-29] MEDS ORDERED: KEFZOL 1 GM IJ ONE (06:54)
[2021-06-29] MEDS ORDERED: DIPRIVAN 200 MG/20 ML IV ONE (06:54)
[2021-06-29] MEDS ORDERED: Versed 2 MG/2 ML Injection IV ONE (06:54)
--- NOTE | 2021-06-29 08:41 | HP ---
DATE OF SURGERY: 06/29/2021 HISTORY OF PRESENT ILLNESS: She has a history of lung cancer. She had a port infection. She is in need of another port for fpc access. PAST MEDICAL HISTORY: Advanced lung cancer. Hypertension. Hypercholesterolemia. Aneurysm. PAST SURGICAL HISTORY: Port placed in the past. Port removed secondary to infection. Exploratory laparoscopy. Colonoscopy in the past. MEDICATIONS: Per H&P on the chart. Albuterol, ProAir, Alendronate, Anoro Ellipta, carvedilol, hydralazine, Barbie's Magic Solution, [facility] [place], potassium chloride, rosuvastatin. She had been on some Merrem. ALLERGIES: SULFA. PENICILLIN G. IODINATED CONTRAST DYE. FAMILY HISTORY: Negative in regards to this problem. SOCIAL HISTORY: Former smoker. No alcohol abuse. REVIEW OF SYSTEMS: Fourteen systems reviewed pertinent for multiple medical problems in preoperative H&P. PHYSICAL EXAMINATION: GENERAL: A chronically ill female. HEENT: Sclerae nonicteric. NECK: No JVD. CHEST: Equal excursion. Hemodynamically stable from removing the port. Decreased breath sounds secondary to lung cancer. CVS: Regular rate and rhythm. ABDOMEN: Soft. EXTREMITIES: No cyanosis. NEURO: Alert, moving extremities symmetrically. She is quite weak from health issues. PSYCH: Appropriate mood and affect. IMPRESSION: Need for new port placement. General risk of bleeding or infection, thrombosis, pneumothorax, risk of new port infection but not limited to, consent obtained. Will proceed with port placement as an outpatient.
[2021-06-29] MEDS ORDERED: Sodium Chloride 0.9% 1000 ML 1,000 ML IV SCH (08:45)
[2021-06-29] MEDS: xanAX 0.25 MG PO SCH ×2 (10:14→22:10)
[2021-06-29] MEDS: ROCEPHIN 1 Gm-D5w 50 ml Bag** 1 G/50 ML IVPB IV SCH (10:14)
[2021-06-29] MEDS: Klor Con 10 MEQ PO SCH (10:14)
[2021-06-29] MEDS ORDERED: MORPHINE SULFATE 10 MG/ML ONE (13:40)
[2021-06-29] MEDS: ENOXAPARIN SODIUM SQ SCH (14:35)
[2021-06-29] MEDS: Zithromax 500 MG/ 250 ML NaCl Premix 500 MG/250 ML IVPB IV SCH (14:35)
[2021-06-29] MEDS ORDERED: NORCO 5/325 MG PO PRN (16:15)
[2021-06-29] MEDS ORDERED: Sodium Chloride 0.9% 500 ML 500 ML IV SCH (16:30)
[2021-06-30] MEDS: PERCOCET TABLET 5/325MG PO PRN ×3 (00:07→13:35)
[2021-06-30] MEDS: DUONEB 0.5-3 MG/3 ml Neb IH SCH (07:25)
--- NOTE | 2021-06-30 08:26 | OP ---
SURGERY DATE/TIME: 06/29/2021 1235 PREOPERATIVE DIAGNOSIS: Lung cancer, need for long-term IV access for IV treatments, need for Port-A-Cath. POSTOPERATIVE DIAGNOSIS: Lung cancer, need for long-term IV access for IV treatments, need for Port-A-Cath. PROCEDURE: Ultrasound guided interpretation management cannulation left internal jugular vein with placement of tunneled central venous catheter access Port-A-Cath with C-arm fluoroscopy interpretation and management. SURGEON: Dr. Eligio Foote. ANESTHESIA: MAC. 1% lidocaine local. ESTIMATED BLOOD LOSS: Minimal. INDICATIONS: As noted above. Risks and benefits explained in detail and not limited to and consent obtained. DESCRIPTION OF PROCEDURE AND FINDINGS: The patient is taken to the operating room. MAC anesthesia introduced. After official time out and no disagreement with planned procedure, she was prepped draped in usual sterile fashion. Given her thin nature and marginal heart and lung issues elected to go to the jugular approach. Sterile probe covered sterile ultrasound guided sleeve, sterile jelly easily compressible left internal jugular vein noted. In Trendelenburg position, 1% Lidocaine local was infiltrated. An 18 gauge cannulation needle inserted on first pass. Good dark nonpulsatile venous return. Guide wire passed without difficulty down innominate. However whether there was some scarring or recannulation in the superior vena cava area the guidewire kept wanting to come forward and looped at an angle. There was question whether from her past history of other ports that were placed if she had some scarring in the area. It was felt that she had the recent infection on the right chest wall it was felt that it is not a good option to go back to the right side. It was felt it would be best to have the catheter across the innominate towards the proximal superior vena cava would be a better option than going to the side that she had the infection in a couple of weeks ago. Therefore, anesthetized the tunnel track and port pocket. Inferior subcu port pocket created on the chest. Port secured with Prolene suture x2. Catheter tunneled down from cannulation stab wound down to port pocket area. The dilator and break away sheath easily fed over the guidewire and the jugular portion of the vein where the catheter then easily fed down. The tip was down towards the superior vena cava. The tip of the catheter wanted to come anteriorly therefore it was pulled back so it was in the distal innominate towards the proximal superior vena cava area. It aspirated dark, nonpulsatile venous return with ease. It was flushed with injectable saline provided by the staff. Good hemostasis noted. Lung collazo noted to be up bilaterally. The subcu closed with 3-0 Vicryl, skin closed with 4-0 Vicryl. Cannulation stab wound closed with 4-0 Vicryl. Steri-Strips and sterile dressing applied. The patient tolerated the procedure well. The port had been secured with Prolene suture x2. There were no immediate complications. There is no family available to discuss the findings with out in the waiting area.
[2021-06-30] MEDS ORDERED: Sodium Chloride 0.9% 10 ML FLUSH Syringe IV PRN (08:45)
[2021-06-30] MEDS: ENOXAPARIN SODIUM SQ SCH (09:22)
[2021-06-30] MEDS: Zithromax 500 MG/ 250 ML NaCl Premix 500 MG/250 ML IVPB IV SCH (09:22)
[2021-06-30] MEDS: Klor Con 10 MEQ PO SCH (09:22)
[2021-06-30] MEDS: ROCEPHIN 1 Gm-D5w 50 ml Bag** 1 G/50 ML IVPB IV SCH (09:22)
[2021-06-30] MEDS: xanAX 0.25 MG PO SCH (09:24)
[2021-06-30] MEDS ORDERED: Lotrisone Cream TOP SCH (10:00)
--- NOTE | 2021-06-30 11:32 | XRAY ---
Exam: Fluoroscopy for venous access from 06/29/2021. Indication: Port placement. Findings: 5 seconds of intraoperative fluoroscopy time was provided. A single AP intraoperative C-arm image of the superior mediastinum reveals the distal catheter tip of the left-sided port in the projection of the proximal superior vena cava. The proximal port has not been included in the [id number] on this study. Impression: 1. As above.
[2021-06-30 14:57] VITALS: BP 107/51; PULSE 86; O2SAT 94
== END 2021-06-30 17:35 | disposition hospice, home (50) | DRG 292 ==
LOC: ED 11:13 → MED SURG 18:35 → UNDOADMIN 18:35
PROVIDERS: ADMIT Family Medicine; ATTEND Family Medicine
PROC: 05HN33Z Insertion of Infusion Device into Left Internal Jugular Vein, Percutaneous Approach (ICD-10-PCS; principal; 2021-06-29)
DX: I50.9 Heart failure, unspecified (principal); C34.90 Malignant neoplasm of unspecified part of unspecified bronchus or lung; D72.825 Bandemia; Z79.899 Other long term (current) drug therapy; I10 Essential (primary) hypertension; E78.00 Pure hypercholesterolemia, unspecified; J44.9 Chronic obstructive pulmonary disease, unspecified; Z20.822 Contact with and (suspected) exposure to COVID-19; M79.605 Pain in left leg; M79.604 Pain in right leg; Z99.81 Dependence on supplemental oxygen
CPT/HCPCS: 36000; 36415; 36571; 51702; 71045; 77001; 80048; 80053; 81001; 83605; 83880; 84145; 84484; 85025; 87040; 87086; 93005; 93041; 93970; 94640; 94760; 96374; 96375; 96376; 97161; 97530; 99284; U0003; 99100; J0456; J0690; J0696; J1642; J1650; J1940; J2250; J2270; J2405; J2704; J3010; J7609; A9270-GY